=== PATIENT | female | born 1980 | race Caucasian/White ===

== ENCOUNTER 2018-05-10 21:39 | Emergency (ER) | payer OTHER, SELFPAY ==
[2018-05-10 21:46] VITALS: BP 103/66; PULSE 58; RESP 16; TEMP 36.7; O2SAT 100
--- NOTE | 2018-05-10 22:13 | ED.GENADUL ---
Disposition Clinical Impression: Burn Disposition: HOME Condition: Good Instructions: Superficial Burn (ED) Additional Instructions: Please apply the silver Silvadene twice daily to the affected hand. Please take 1000 mg of Tylenol every 6 hours and 800 mg of Motrin with food every 6 hours for control of the pain. If you notice any redness, fever, chills, worsening pain please return immediately for reevaluation. If you notice any worsening of your symptoms, or any new symptoms such as vomiting, diarrhea, fever, chills, shortness of breath, chest pain, numbness, weakness, or fainting , please return immediately to the emergency department for reevaluation. Please follow up with your primary care provider as soon as possible for reassessment and reevaluation. As always, it was a pleasure participating in your medical care today. Referrals: Catarina Min NP [Primary Care Provider] - Medical Decision Making - Medical Decision Making This is a 37-year-old female who is right-hand dominant who demonstrates a small amount of second-degree burn secondary to hot oil splashing on her right hand. Total body surface area is less than 1%. No evidence of circumferential macdonald, no significant swelling of the hand. She is kept in cool water ever since the initial event. Currently her pain is controlled when it is under cold water. We have recommended maximum dose Tylenol and Motrin for home use, as well as silver Silvadene. We have given her a tube here and instructed her on how to use it at home. We have given her bandaging material, instructed her on the importance of regular bandage changes. We discussed the importance of close follow-up with PCP as well as red flags for which to return including signs and symptoms concerning for infection the patient understands. I have extensively reviewed the treatment plan and discharge instructions with the patient. I have addressed all patient concerns at this time. The patient was made aware of what symptoms to monitor for that would warrant a return to the emergency department. Discussed the plan with the patient, they demonstrate verbal understanding and agreement with our assessment and plan at this time. History of Present Illness - General Chief complaint: Burn Stated complaint: BURNED HAND Time Seen by Provider: 05/10/18 22:03 - History of Present Illness Initial comments: This is a 37-year-old female with no significant past medical history who presents for evaluation of burn to her right hand. She is right-hand dominant. Patient states that earlier this evening she was cooking chicken which was being sagastume grease, and a bit of hot grease splashed up on her right hand. It splashed onto the palmar surface of her hand, as well as small amounts on her fingers. She immediately placed it in cold water, and applied some ice. She then came in for evaluation. She describes the pain is mild. No radiation. No difficulty moving the hand, with flexion or extension. Good 2 point discrimination per patient is still present. Her tetanus is up-to-date, and was last updated 6 years ago. She denies any other medical problems, any home medication use, or any other complaints at this time. She denies any pertinent surgical history, or any pertinent family history. She denies any IV or illicit drug use. - Related Data Trazodone HCl 50 mg PO BID #60 tab-cap 03/16/18 Silver Sulfadiazene 1% [Silvadene 1% Cream] 1 gm TP BID tube 05/10/18 Allergies Allergy/AdvReac Type Severity Reaction Status Date / Time No Known Allergies Allergy Unverified 05/10/18 21:48 Review of Systems Other: 10 point review of systems was performed, pertinent positives and negatives are noted in the history of present illness. General Exam - Other Other exam information: 1.Const: Well-nourished, Well-developed, appearing stated age 2.Eyes: PERRL, no conjunctival injection, and symmetrical lids. 3.ENT: Atraumatic external nose and ears. Moist MM. Neck: Symmetric, trachea midline, No thyromegaly. 4.CVS: +S1/S2, No murmurs or gallops. Peripheral pulses 2+ and equal in all extremities. Brisk capillary refill in all extremities. 5.RESP: Unlabored respiratory effort. Clear to auscultation bilaterally. No wheezes rales or rhonchi 6.GI: Soft, Nontender/Nondistended, No hepatosplenomegaly. No guarding or rebound. 7.MSK: Normocephalic/Atraumatic, Extremities w/o deformity or ttp No cyanosis or clubbing, Normal movement of all extremities 8.Skin: The patient's right hand demonstrates 3 small lesions over the palmar aspect with mild blisters in these areas. Total diameter of the enteric complexes 2.5 cm. No significant redness, no evidence of other skin breakdown on the palmar aspect. There are also 2-3 small splash burleson roughly 7 mm in diameter on the middle finger, ring finger and index finger. No other evidence of skin breakdown. Total body surface percentage of second-degree macdonald is less than 1%. Good sensation, normal movement of flexion extension of the fingers, good 2 point discrimination. Brisk capillary refill. 9.Neuro: predictive maintenance specialist II-XII grossly intact. Sensation grossly intact, no focal neurologic deficits. 10.Psych: (AAO) x3. Appropriate mood and affect Course Vital Signs - 24 hr 05/10/18 21:46 Temperature 36.7 C Pulse 58 L Respiratory 16 Rate Blood Pressure 103/66 Pulse Oximetry 100
== END 2018-05-10 22:25 | disposition home or self-care (01) ==
PROVIDERS: Emergency Provider Student in an Organized Health Care Education/Training Program; PCP Nurse Practitioner Family
DX: T23.251A Burn of second degree of right palm, initial encounter (principal); X10.2XXA Contact with fats and cooking oils, initial encounter
CPT/HCPCS: 16020

== ENCOUNTER 2018-08-01 07:55 | Outpatient (CLI) | payer OTHER, SELFPAY ==
[2018-08-01 09:25] LABS: Anion Gap 7.6 mmol/L (3-11); BUN 13 mg/dL (7-18); CO2 27.4 mmol/L (21.0-32.0); CREATININE 0.99 mg/dL (0.55-1.02); Calcium 8.8 mg/dL (8.5-10.1); Chloride 104 mmol/L (98-107); Cholesterol 166 mg/dL (50-200); Glucose 92 mg/dL (70-100); HDL Cholesterol 74 mg/dL (40-60); LDL CHOLESTEROL 87 mg/dL (<100); Potassium 4.1 mmol/L (3.5-5.1); Sodium 139 mmol/L (136-145); Triglyceride 32 mg/dL (30-150)
== END 2018-08-01 08:15 ==
PROVIDERS: PCP Nurse Practitioner Family; Visit Provider Nurse Practitioner Family
DX: Z00.00 Encounter for general adult medical examination without abnormal findings (principal); Z13.220 Encounter for screening for lipoid disorders; Z13.228 Encounter for screening for other metabolic disorders
CPT/HCPCS: 36415; 80048; 80061; 83721

== ENCOUNTER 2018-10-07 00:11 | Outpatient (CLI) | payer OTHER, SELFPAY ==
--- NOTE | 2018-10-07 08:49 | DI.MRI_ITS ---
SYMPTOMS/DIAGNOSIS: RT WRIST PAIN, MUSCLE WEAKNESS GENERALIZED, M25.531, M62.81 MRI OF THE RIGHT WRIST: Comparison is made with [id number]. T 1 and fat suppressed T 2 axial, coronal and sagittal sequences were performed. The exam is mildly limited by patient motion. The marrow signal is normal. No joint effusion or ganglion cyst is seen. The carpal tunnel is unremarkable. No tendon abnormalities are seen. IMPRESSION: Negative MRI of the right wrist.
== END 2018-10-07 00:31 ==
PROVIDERS: PCP Nurse Practitioner Family; Visit Provider Nurse Practitioner Family
DX: M25.531 Pain in right wrist (principal); M62.81 Muscle weakness (generalized)
CPT/HCPCS: 73221

== ENCOUNTER 2019-01-28 11:04 | Emergency (ER) | payer OTHER, SELFPAY ==
[2019-01-28 11:15] VITALS: BP 118/69; PULSE 62; RESP 16; TEMP 36.7; O2SAT 100
--- NOTE | 2019-01-28 11:17 | W.ED.GENAD ---
Discharge Plan Disposition Patient Disposition: HOME Condition: Stable Discharge Details Chief Complaint: Laceration Clinical Impression: Blunt trauma of nose Primary Care Provider: Catarina Min ED Provider: Darien Paez Home Meds and New Rx's Prescriptions: No Action fluocinonide 0.05 % cream 1 applic TP BID PRN (Reason: rash) Qty: 60 RF: 1 rizatriptan 10 mg tablet 10 mg PO ONCE MDD 20mg PRN (Reason: migraine headache) Qty: 10 RF: 1 trazodone 50 mg tablet 50 mg PO BID Qty: 180 RF: 4 benzonatate 100 mg capsule 100 - 200 mg PO TID PRN (Reason: cough) Qty: 90 RF: 0 Discharge Instructions Additional Instructions: If you have repeated vomit, severe worsening head pain or new pain such as difficulty breathing or chest pain/pressure return to the emergency department if the nose bleeds use the nasal clamp or your finger and hold for 15 minutes. If this doesn't stop the bleeding return to the emergency department You can take 1000mg tylenol and 600mg ibuprofen every 6 hours for pain as needed try to avoid screens especially if you are having headaches. if symptoms persist this week follow up with your primary care provider Medical Decision Making 38 yo female comes in after she was cutting a tree and it swung up and hit her nose, denies loc or vomit since then, has a headache. She had bleeding from the nose so came here for an evaluation. She has a superficial 0.5cm laceration on the bridge of the nose that is too superficial to close. She does have some swelling of the nasal bridge, is midline so doubt significant nasal fx and do not feel imaging of the nsoe indicate.d Has no septal hematoma on exam, does have some dried blood in the right nare, no epistaxis. no neck pain, meets criteria per candian head ct rules to not image her head. Will d/c and return precautions given Medical Records Medical records reviewed: Yes I reviewed the patient's medical records. HPI General Mode of arrival: ambulatory. Date/Time Provider Initiated Documentation: 01/28/19 11:12. Limitations to Documentation: no limitations. Information obtained by: patient. History of Present Illness 38 year old F presents to the emergency department with the chief complaint of nasal bleeding, described as moderate, and is localized to the face. Patient started experiencing this hour(s) (1) and it has been now resolved. No relieving factors improve symptom(s), No exacerbating factors reported . Patient did receive the following treatments prior to arrival, none Related Data Home Medications Medication Instructions Recorded Confirmed fluocinonide 0.05 % topical cream 1 applic TP BID PRN #60 gm 06/29/18 01/28/19 rizatriptan 10 mg tablet 10 mg PO ONCE PRN #10 tab MDD 20mg 07/28/18 01/28/19 trazodone 50 mg tablet 50 mg PO BID #180 tab 08/17/18 01/28/19 benzonatate 100 mg capsule 100 - 200 mg PO TID PRN #90 cap 10/10/18 01/28/19 Previous Rx's Medication Instructions Recorded fluocinonide 0.05 % topical cream 1 applic TP BID PRN #60 gm 06/29/18 rizatriptan 10 mg tablet 10 mg PO ONCE PRN #10 tab MDD 20mg 07/28/18 trazodone 50 mg tablet 50 mg PO BID #180 tab 08/17/18 benzonatate 100 mg capsule 100 - 200 mg PO TID PRN #90 cap 10/10/18 Allergies Allergy/AdvReac Type Severity Reaction Status Date / Time No Known Allergies Allergy Unverified 01/28/19 11:18 Review of Systems Review of Systems All systems reviewed & are unremarkable except as noted in HPI and below Cardiovascular Denies chest pain and Denies dyspnea Respiratory Denies dyspnea Gastrointestinal Denies vomiting [facility] Medical History Depression with anxiety Surgical History Hip surgery Family History Mother Depression Hyperlipidemia Mental disorder MS (multiple sclerosis) Father Depression Mental disorder Neoplasm Brother No problems noted. Grandfather Heart disease Hyperlipidemia Grandfather Alcohol abuse Grandmother Heart disease Stroke Grandmother Hyperlipidemia Son No problems noted. Son No problems noted. Social History Smoking/Tobacco Use Status: Never Alcohol Intake: current Alcohol Intake frequency: a few times a week Substance use type: does not use Household members: spouse and other Details: 4 current occupation: TEACHER Pets and animals: Yes Pets and animals: cat(s), dog(s) and farm animals Duration: 45-60 minutes/day Frequency: 5-6 times per week Dayana/Voodoo: Yazdanism Special dayana needs: No Exam Const General: no acute distress Orientation: alert HENMT Head: normal to inspection Ears: external ears normal Mouth: moist mucous membranes Eyes General: appearance normal, both eyes and all related structures Neck Neck: normal visual inspection Resp Effort & Inspection: normal respiratory effort and able to speak in complete sentences Cardio Rate: regular rate Skin General skin exam: no rashes or lesions noted Neuro General: alert and oriented x3 Extrem General: normal to inspection Psych Mental Status: mental status grossly normal
--- NOTE | 2019-01-28 11:27 | ED.GENADUL_ITS ---
Discharge Plan Disposition Patient Disposition: HOME Condition: Stable Discharge Details Chief Complaint: Laceration Clinical Impression: Blunt trauma of nose Primary Care Provider: Catarina Min ED Provider: Darien Paez Home Meds and New Rx's Prescriptions: No Action fluocinonide 0.05 % cream 1 applic TP BID PRN (Reason: rash) Qty: 60 RF: 1 rizatriptan 10 mg tablet 10 mg PO ONCE MDD 20mg PRN (Reason: migraine headache) Qty: 10 RF: 1 trazodone 50 mg tablet 50 mg PO BID Qty: 180 RF: 4 benzonatate 100 mg capsule 100 - 200 mg PO TID PRN (Reason: cough) Qty: 90 RF: 0 Discharge Instructions Additional Instructions: If you have repeated vomit, severe worsening head pain or new pain such as difficulty breathing or chest pain/pressure return to the emergency department if the nose bleeds use the nasal clamp or your finger and hold for 15 minutes. If this doesn't stop the bleeding return to the emergency department You can take 1000mg tylenol and 600mg ibuprofen every 6 hours for pain as needed try to avoid screens especially if you are having headaches. if symptoms persist this week follow up with your primary care provider Medical Decision Making 38 yo female comes in after she was cutting a tree and it swung up and hit her nose, denies loc or vomit since then, has a headache. She had bleeding from the nose so came here for an evaluation. She has a superficial 0.5cm laceration on the bridge of the nose that is too superficial to close. She does have some swelling of the nasal bridge, is midline so doubt significant nasal fx and do not feel imaging of the nsoe indicate.d Has no septal hematoma on exam, does have some dried blood in the right nare, no epistaxis. no neck pain, meets criteria per candian head ct rules to not image her head. Will d/c and return precautions given Medical Records Medical records reviewed: Yes I reviewed the patient's medical records. HPI General Mode of arrival: ambulatory . Date/Time Provider Initiated Documentation: 01/28/19 11:12 . Limitations to Documentation: no limitations . Information obtained by: patient . History of Present Illness 38 year old F p resents to the emergency department with the chief complaint of nasal bleeding, described as moderate, and is localized to the face. Patient started experiencing this hour(s) (1) and it has been now resolved. No relieving factors improve symptom(s), No exacerbating factors reported . Patient did receive the following treatments prior to arrival, none Related Data Home Medications Medication Instructions Recorded Confirmed fluocinonide 0.05 % topical cream 1 applic TP BID PRN #60 gm 06/29/18 01/28/19 rizatriptan 10 mg tablet 10 mg PO ONCE PRN #10 tab MDD 20mg 07/28/18 01/28/19 trazodone 50 mg tablet 50 mg PO BID #180 tab 08/17/18 01/28/19 benzonatate 100 mg capsule 100 - 200 mg PO TID PRN #90 cap 10/10/18 01/28/19 Previous Rx's Medication Instructions Recorded fluocinonide 0.05 % topical cream 1 applic TP BID PRN #60 gm 06/29/18 rizatriptan 10 mg tablet 10 mg PO ONCE PRN #10 tab MDD 20mg 07/28/18 trazodone 50 mg tablet 50 mg PO BID #180 tab 08/17/18 benzonatate 100 mg capsule 100 - 200 mg PO TID PRN #90 cap 10/10/18 Allergies Allergy/AdvReac Type Severity Reaction Status Date / Time No Known Allergies Allergy Unverified 01/28/19 11:18 Review of Systems Review of Systems All systems reviewed & are unremarkable except as noted in HPI and below Cardiovascular Denies chest pain and Denies dyspnea Respiratory Denies dyspnea Gastrointestinal Denies vomiting [facility] Medical History Depression with anxiety Surgical History Hip surgery Family History Mother Depression Hyperlipidemia Mental disorder MS (multiple sclerosis) Father Depression Mental disorder Neoplasm Brother No problems noted. Grandfather Heart disease Hyperlipidemia Grandfather Alcohol abuse Grandmother Heart disease Stroke Grandmother Hyperlipidemia Son No problems noted. Son No problems noted. Social History Smoking/Tobacco Use Status: Never Alcohol Intake: current Alcohol Intake frequency: a few times a week Substance use type: does not use Household members: spouse and other Details: 4 current occupation: TEACHER Pets and animals: Yes Pets and animals: cat(s), dog(s) and farm animals Duration: 45-60 minutes/day Frequency: 5-6 times per week Dayana/Roman Catholic: Jain Special dayana needs: No Exam Const General: no acute distress Orientation: alert HENMT Head: normal to inspection Ears: external ears normal Mouth: moist mucous membranes Eyes General: appearance normal, both eyes and all related structures Neck Neck: normal visual inspection Resp Effort & Inspection: normal respiratory effort and able to speak in complete sentences Cardio Rate: regular rate Skin General skin exam: no rashes or lesions noted Neuro General: alert and oriented x3 Extrem General: normal to inspection Psych Mental Status: mental status grossly normal
[2019-01-28] MEDS: Ibuprofen 600 MG TAB PO (11:30)
== END 2019-01-28 11:50 | disposition home or self-care (01) ==
LOC: ER 11:39
PROVIDERS: Emergency Provider Emergency Medicine; PCP Nurse Practitioner Family
DX: S01.21XA Laceration without foreign body of nose, initial encounter (principal); W22.8XXA Striking against or struck by other objects, initial encounter
CPT/HCPCS: 99282

== ENCOUNTER 2019-04-05 15:56 | Outpatient (REF) | payer OTHER, SELFPAY ==
--- NOTE | 2019-04-05 14:00 | PAPFT_PTH ---
PATIENT: Julieta Sen LOC: [facility] U#:[id number] AGE/SX: 38/F ROOM: RE04/05/[address]: SHANIQUA Huston : 1980 BED: DIS: 04/05/2019 SPEC #: [id number] RECD: 04/06/19 13:03 STATUS: VERA REJohn #: [id number] ROMAN: 04/05/19 14:[address]: Catarina Min DEPT: [facility] Cytology RECD BY: Bridgette Gardner Tissues: 1 - CX/ENDOCX FOR PAP SMEARS Procedures: PAP THIN PREP/UVM Screening HPV DNA PROBE Comments: [id number]
== END 2019-04-05 16:16 ==
LOC: LBN 15:56
PROVIDERS: PCP Nurse Practitioner Family; Visit Provider Nurse Practitioner Family
DX: Z12.4 Encounter for screening for malignant neoplasm of cervix (principal); Z11.51 Encounter for screening for human papillomavirus (HPV)
CPT/HCPCS: 88142; 87624

== ENCOUNTER 2019-05-17 16:15 | Outpatient (REF) | payer OTHER, SELFPAY ==
--- NOTE | 2019-05-17 14:30 | ENDO_PTH ---
PATIENT: Julieta Sen LOC: [facility] U#:[id number] AGE/SX: 38/F ROOM: RE05/17/[address]: Lydia Gutierrez : 1980 BED: DIS: 05/17/2019 SPEC #: [id number] RECD: 05/17/19 17:00 STATUS: VERA ANGLIN #: [id number] ROMAN: 05/17/19 14:[address]: Lydia Gutierrez DEPT: Surgical Specimen RECD BY: Bridgette Gardner ENTERED: 05/17/19 17:03 SP TYPE: Endo OTHR DR: SHANIQUA Huston Tissues: 1 - ENDOCERVICAL BX/CURRETTE Procedures: GROSS AND MICRO LEVEL 4 Comments: [id number]
== END 2019-05-17 16:35 ==
LOC: LBN 16:15
PROVIDERS: PCP Nurse Practitioner Family; Visit Provider Obstetrics & Gynecology Gynecology
DX: N87.0 Mild cervical dysplasia (principal); R87.612 Low grade squamous intraepithelial lesion on cytologic smear of cervix (LGSIL); R87.810 Cervical high risk human papillomavirus (HPV) DNA test positive
CPT/HCPCS: 88305

== ENCOUNTER 2019-09-15 02:34 | Outpatient (CLI) | payer OTHER, SELFPAY ==
--- NOTE | 2019-09-15 07:29 | DI.MAMMO_ITS ---
EXAM: MG MAMMO SCREENING AND LT AXILLARY ULTRASOUND CLINICAL HISTORY: Screening,z12.39, F/U MAMMMO TECHNIQUE: Mammograms were interpreted according to the usual protocol including computer analysis w iRule CAD system, tomosynthesis and C-view imaging. Ultrasound was performed according to the usual protocol. FINDINGS: Bilateral baseline mammogram and left breast/axilla ultrasound are interpreted in conjunction. Patie nt reports palpable abnormality in the left axilla. Breasts are heterogeneously dense. No dominant mass or clumped microcalcification is identified in either breast. The ultrasound examination shows 5 by 1.4 millimeter in diameter nodule corresponding to the patient' s palpable abnormality with typical lymph node architecture in the axilla. IMPRESSION: No specific evidence of malignancy at this time. Routine screening examinations are suggested at year ly intervals in this age group according to the ACR guidelines. Category 1. Breast density, category C. BI-RADS Cat 1 - Negative. Breast Density - Category C - Heterogeneously dense.
--- NOTE | 2019-09-15 09:39 | DI.US_ITS ---
EXAM: MG MAMMO SCREENING AND LT AXILLARY ULTRASOUND CLINICAL HISTORY: Screening,z12.39, F/U MAMMMO TECHNIQUE: Mammograms were interpreted according to the usual protocol including computer analysis w [employer] CAD system, tomosynthesis and C-view imaging. Ultrasound was performed according to the usual protocol. FINDINGS: Bilateral baseline mammogram and left breast/axilla ultrasound are interpreted in conjunction. Patie nt reports palpable abnormality in the left axilla. Breasts are heterogeneously dense. No dominant mass or clumped microcalcification is identified in either breast. The ultrasound examination shows 5 by 1.4 millimeter in diameter nodule corresponding to the patient' s palpable abnormality with typical lymph node architecture in the axilla. IMPRESSION: No specific evidence of malignancy at this time. Routine screening examinations are suggested at year ly intervals in this age group according to the ACR guidelines. Category 1. Breast density, category C. BI-RADS Cat 1 - Negative. Breast Density - Category C - Heterogeneously dense.
== END 2019-09-15 02:54 ==
PROVIDERS: PCP Nurse Practitioner Family; Visit Provider Nurse Practitioner Family
DX: Z12.31 Encounter for screening mammogram for malignant neoplasm of breast (principal); R59.0 Localized enlarged lymph nodes
CPT/HCPCS: 76642; 77063; 77067

== ENCOUNTER 2020-02-21 15:53 | Outpatient (CLI) | payer OTHER, SELFPAY ==
--- NOTE | 2020-02-21 14:30 | DI.RAD_ITS ---
EXAM: XR SHOULDER RT COMPLETE 2+V CLINICAL HISTORY: right shoulder pain. TECHNIQUE: 2D digital imaging was performed. COMPARISON: No exams were available for comparison FINDINGS: BONES: No acute fracture is present. No bony destructive lesion is seen. The there is minimal spurri ng at the inferior glenoid. JOINTS: No dislocation present. The glenohumeral joint space is well maintained. There is no signif icant AC joint spurring. SOFT TISSUE: Normal. No joint space or soft tissue calcifications are seen. IMPRESSION: Minimal degenerative changes.. DATA REPOSITORY: RADIATION DOSE DELIVERED:
== END 2020-02-21 16:13 ==
PROVIDERS: PCP Nurse Practitioner Family; Referring Provider Nurse Practitioner Family; Visit Provider Student in an Organized Health Care Education/Training Program
DX: M25.511 Pain in right shoulder (principal); M19.011 Primary osteoarthritis, right shoulder; G89.29 Other chronic pain
CPT/HCPCS: 73030

== ENCOUNTER 2020-04-08 12:01 | Outpatient (REF) | payer OTHER, SELFPAY ==
--- NOTE | 2020-04-08 08:45 | PAPFT_PTH ---
PATIENT: Julieta Sen LOC: [facility] U#:[id number] AGE/SX: 39/F ROOM: RE04/08/[address]: SHANIQUA Huston : 1980 BED: DIS: 04/08/2020 SPEC #: [id number] RECD: 04/08/20 13:04 STATUS: VERA REJohn #: [id number] ROMAN: 04/08/20 08:[address]: Catarina Min DEPT: [facility] Cytology RECD BY: Bridgette Gardner Tissues: 1 - CX/ENDOCX FOR PAP SMEARS Procedures: PAP THIN PREP/UVM Screening HPV DNA PROBE Comments: [id number]
== END 2020-04-08 12:21 ==
LOC: LBN 12:01
PROVIDERS: PCP Nurse Practitioner Family; Visit Provider Nurse Practitioner Family
DX: Z12.4 Encounter for screening for malignant neoplasm of cervix (principal); Z11.51 Encounter for screening for human papillomavirus (HPV); Z87.42 Personal history of other diseases of the female genital tract
CPT/HCPCS: 88142; 87624

== ENCOUNTER 2021-04-30 09:14 | Outpatient (CLI) | payer OTHER, SELFPAY ==
--- NOTE | 2021-04-30 09:00 | DI.RAD_ITS ---
Exam(s) XR ELBOW RT COMPLETE EXAM: XR ELBOW RT COMPLETE CLINICAL HISTORY: right lateral epicondylitis f/u. TECHNIQUE: 2D digital imaging was performed. COMPARISON: No exams were available for comparison FINDINGS: No evidence of acute fracture nor joint effusion. There is no swelling of the olecranon bursa. Radi al head appears unremarkable as does the capitellum. Epicondyles appear unremarkable. However, on the frontal view there is a 1 millimeter calcific density seen at the mid aspect of the j oint, chest off the medial aspect of the capitellum. This is probably a loose intra-articular body. There is no evidence of osteochondral defect at the capitellum and trochlear levels. IMPRESSION: DATA REPOSITORY: RADIATION DOSE DELIVERED:
== END 2021-04-30 09:15 | disposition home or self-care (01) ==
LOC: DIORS 09:14
PROVIDERS: PCP Nurse Practitioner Family; Visit Provider Student in an Organized Health Care Education/Training Program
DX: M77.11 Lateral epicondylitis, right elbow (principal)
CPT/HCPCS: 73080

== ENCOUNTER 2021-05-16 14:48 | Outpatient (REF) | payer OTHER, SELFPAY ==
--- NOTE | 2021-05-16 13:00 | PAPFT_PTH ---
PATIENT: Julieta Sen LOC: [facility] U#:[id number] AGE/SX: 40/F ROOM: RE05/16/[address]: SHANIQUA Huston : 1980 BED: DIS: 05/16/2021 SPEC #: [id number] RECD: 05/16/21 18:04 STATUS: VERA REQ #: [id number] ROMAN: 05/16/21 13:[address]: Catarina Min DEPT: [facility] Cytology RECD BY: Bridgette Gardner Tissues: 1 - CX/ENDOCX FOR PAP SMEARS Procedures: PAP THIN PREP/UVM Screening HPV DNA PROBE Comments: [id number]
== END 2021-05-16 14:49 | disposition home or self-care (01) ==
LOC: LBN 14:48
PROVIDERS: PCP Nurse Practitioner Family; Visit Provider Nurse Practitioner Family
DX: Z12.4 Encounter for screening for malignant neoplasm of cervix (principal); Z87.42 Personal history of other diseases of the female genital tract; Z11.51 Encounter for screening for human papillomavirus (HPV)
CPT/HCPCS: 88142; 87624

== ENCOUNTER 2021-06-13 01:14 | Outpatient (CLI) | payer OTHER, SELFPAY ==
[2021-06-13 12:48] LABS: Anion Gap 8.6 mmol/L (3-11); BUN 11 mg/dL (7-18); CO2 26.4 mmol/L (21.0-32.0); CREATININE 0.9 mg/dL (0.55-1.02); Calculated LDL 94 mg/dL (<100); Chloride 107 mmol/L (98-107); Cholesterol 188 mg/dL (<200); Glucose 85 mg/dL (74-106); HDL Cholesterol 86 mg/dL (40-60); Potassium 4.1 mmol/L (3.5-5.1); Sodium 142 mmol/L (136-145); TSH (W/Ref FT4) 0.69 uIU/mL (0.36-3.74); Triglyceride 41 mg/dL (<150)
== END 2021-06-13 01:15 | disposition home or self-care (01) ==
LOC: LOS 01:14
PROVIDERS: PCP Nurse Practitioner Family; Visit Provider Nurse Practitioner Family
DX: Z00.00 Encounter for general adult medical examination without abnormal findings (principal)
CPT/HCPCS: 36415; 80048; 80061; 84443

== ENCOUNTER → 2021-11-06 02:19 | Outpatient (CLI) | payer OTHER, SELFPAY ==
--- NOTE | 2021-11-06 07:15 | DI.MRI_ITS ---
Exam(s) MR IAC BRAIN WO/W EXAM: MR IAC BRAIN WO/W CLINICAL HISTORY: right sn hearing loss, h90.41,h93.11 TECHNIQUE: Multiplanar multisequence MRI of the brain was performed. Both noninfused and contrast i nfused sequences were performed. IV Contrast injected was 13 cc Dotarem. Also performed high-resolution sub- millimeter slice thickness sequence through the IAC's. COMPARISON: No exams were available for comparison FINDINGS: INTERNAL AUDITORY CANALS: There is no evidence of mass in the cerebellopontine angles. No evidence o f intra canalicular acoustic neuroma-schwannoma. Seventh and 8th cranial nerves appear unremarkable within the IAC's. Fifth-trigeminal cranial nerves appear unremarkable as they head anteriorly toward s Meckel's caves. Third-oculomotor cranial nerves appear unremarkable within the interpeduncular cis tern. CEREBRAL PARENCHYMA: No evidence of intracranial hemorrhage, mass effect nor shift of midline structu re. No extraaxial fluid collections. Ventricles are not enlarged nor shifted. There is no significant focal signal abnormality in the cerebellar hemispheres nor within the jeff, m idbrain, and thalami. There is no abnormal signal abnormality in the periventricular white matter. There are no ring enhancing lesions in the brain. There is no abnormal meningeal enhancement. No ev idence of demyelinating plaques DWI: No evidence of restricted diffusion to suggest recent acute ischemic event. SWI: No evidence of microhemorrhages. PITUITARY GLAND: No mass nor parasellar abnormality. No obvious abnormality in the cavernous sinuses. FLOW VOIDS: The expected flow void are noted. No evidence of obvious aneurysm nor obvious vascular ma lformation. Left vertebral artery is dominant. PARANASAL SINUSES: There is a retention cyst in the floor of the left maxillary sinus which measures 1.1 cm AP x 1 cm wide by 0.6 cm craniocaudal. No associated fluid level. Other paranasal sinuses ar e clear as are the mastoid air cells. ORBITS: No obvious abnormal findings. IMPRESSION: 1. No significant intracranial findings on this MRI scan of the brain. 2. No abnormal enhancing intracranial findings. 3. No evidence of acoustic neuroma-schwannoma nor other significant findings in the region of the ce rebellopontine angles nor within the internal auditory canals. DATA REPOSITORY:
[2021-11-06] MEDS: Normal Saline Flush 10 ML SYR IVP (13:59)
[2021-11-06] MEDS: Gadoterate meglumine 20 ML VIAL 13 ML IVP (14:00)
== END ==
PROVIDERS: PCP Nurse Practitioner Family; Visit Provider Otolaryngology
DX: H90.41 Sensorineural hearing loss, unilateral, right ear, with unrestricted hearing on the contralateral side (principal); H93.11 Tinnitus, right ear
CPT/HCPCS: 70553

== ENCOUNTER → 2023-05-27 01:14 | Outpatient (CLI) | payer OTHER, SELFPAY ==
--- NOTE | 2023-05-27 08:30 | DI.MAMMO_ITS ---
Exam(s) MAMMO SCREENING EXAM: MAMMO SCREENING CLINICAL HISTORY: screening, Z12.39 TECHNIQUE: Bilateral full field digital CC and MLO mammographic images were obtained with 3D tomosyn thesis and utilizing computer aided detection (CAD). COMPARISON: Available for comparison. FINDINGS: Masses/Architectural Distortion: None seen. Microcalcifications: No suspicious pleomorphic-type are seen. Skin Thickening/Nipple Retraction: None. IMPRESSION: 1. No significant interval change with no specific features of malignancy noted. 2. Unless there is more urgent need, screening mammography is recommended, as per [employer] guidelines. BI-RADS Category 1 - Negative Breast Density - Category C - Heterogeneously dense Breast density category C or D implies that the patient has dense breast tissue. Dense breast tissue is very common and is not abnormal but dense breast tissue can make it harder to find cancer on a ma mmogram. Also, dense breast tissue may increase their breast cancer risk. This information about the result of the mammogram report was provided to the patient to raise their awareness. Use this report when you speak with the patient about their risks for breast cancer, which includes their family hist ory. At that time, you may recommend for more screening tests (Ultrasound or MRI) as they might be us eful based on their risk. A negative radiographic report should not delay biopsy if a dominant or clinically suspicious mass is present. Up to ten percent of cancers are not identified on mammography. A negative report may reinforce clinical impression. Adenosis and dense breasts may obscure an underlying neoplasm. False positive reports average 6 to 10%. Patient will receive a letter notifying them of these results.
== END ==
PROVIDERS: PCP Nurse Practitioner Family; Visit Provider Nurse Practitioner Family
DX: Z12.31 Encounter for screening mammogram for malignant neoplasm of breast (principal)
CPT/HCPCS: 77063; 77067

== ENCOUNTER 2023-09-14 12:26 | Day surgery (SDC) | payer OTHER, SELFPAY ==
--- NOTE | 2023-09-13 12:52 | W.COLOREPORT ---
Colonoscopy Report Pre-op diagnosis general: colorectal cancer screening Surgeon: Marlen Vinson Anesthesia Type: General:No Airway Complications: None Disposition: same day Prep: Miralax/Dulcolax Procedure Description: After informed consent was obtained the patient was taken to the procedure room and placed in a left decubitous position. Monitors were applied and a time out was done. The patients name, date of , procedure, allergies to medications and metal in their body was reviewed. The patient was then sedated. Once sedated and comfortable a rectal exam was done. External exam was normal. Internal exam revealed a normal sphincter tone and no palpable masses. The prostate []. The scope was then introduced and retrofelexed. [] internal hemorrhoids were identified. The scope was then advanced to the cecum [] difficulty. The TI and appendiceal orifice were identified. The prep was []. The scope was then slowly retracted over [] minutes back into the rectum. Polyps were removed at []. The scope was removed and the patient was woken up and taken back to Same day surgery in stable condition. The patient tolerated the procedure well and there were no immediate complications. Follow up: The patient should follow up in [] years unless they develop changes in bowel habits or other new gastrointestinal complaints.
--- NOTE | 2023-09-13 12:53 | PDOC.DSDIS_ITS ---
Discharge Plan Disposition Patient Disposition: Home Discharge Details Reason For Visit: Colonoscopy Attending Provider: Marlen Vinson Primary Care Provider: Catarina Min Home Meds and New Rx's Prescriptions: No Action rizatriptan 10 mg tablet 10 mg PO ONCE MDD 20mg PRN (Reason: migraine headache) Qty: 20 1RF Rx Instructions: 1 tab once at onset of headache; if no relief, may repeat x 1 in 2hrs ashwagandha root extract 300 mg tablet 400 mg PO DAILY Discharge Instructions Additional Instructions: DSU Colonoscopy Post- Op Instructions Instructions for Everyone who is given Anesthesia: For your safety, please do the following for the next twenty-four (24) hours: *Do Not operate a motor vehicle (car, truck, motorcycle, etc.) *Do Not drink alcoholic beverages or use any recreational drugs for the first 24 hours or while taking pain medications. The medications in your body may have a reaction that can be dangerous. *Do Not make any important decisions or sign any important papers. Findings: Follow up: 1. No lifting over 20 pounds or strenuous activity for the first 24 hours after your procedure. After 24 hours there are no restrictions on your activity but you may feel fatigued for a few days. 2. After you arrive home you may have a light meal and return to your normal diet as you can tolerate it without feeling sick to your stomach. 3. You may have a bloated, gaseous feeling in your belly (abdomen) after a colonoscopy. Passing gas and belching will help. Walking or lying down on your left side with your knees flexed may relieve the discomfort. Call the office at [phone] (Office) or [phone] (Hospital) right away if you notice any of the following: a.Vomiting of blood or ?coffee ground stools?. b.Rectal bleeding 1Tbsp, blood clots or continuous bleeding. c.Severe belly (abdominal) pain. d.A hard distended belly (abdomen) and an inability to pass gas. 4. Please don?t expect to have a normal BM (bowel movement) for 2-3 days after your procedure. 5. If there are questions regarding the findings of your procedure, please contact your doctor 6. If you are unable to contact your doctor with a problem, contact the hospital at [phone]. 7. Continue all your regular medications unless directed otherwise. I understand the above instructions and have no questions. Signature of Patient or Adult Escort Name of Responsible Adult Escort Signature of Nurse Date/Time Activity:: See above Diet:: See above Discharge Orders Discharge Orders: Discharge Order (Routine); Ordered 09/14/23 Ordered By: Marlen Vinson DS: Diagnosis Discharge Diagnosis (1) Abnormal uterine bleeding: Status: Chronic (2) Migraine headache with aura: Status: Chronic (3) Generalized anxiety disorder: Status: Chronic (4) Prolapse of female pelvic organs: Status: Chronic (5) Screening for malignant neoplasm of colon performed: Status: Acute Asessment and Plan: 1 The patient is seen and examined after their colonoscopy.? The patient has been able to pass gas.? They are not having abdominal pain.? They have been able to tolerate liquids and a snack.? They do not have any nausea or vomiting.? They are not having any chest pain or shortness of breath.??? They are not having any rectal bleeding. Their vital signs have been stable-see nursing notes. We discussed findings during their colonoscopy, and any biopsies that were done/polyps that were removed. The patient will be sent a letter with any biopsy results, and when to repeat the colonoscopy.-see discharge instructions. Patient was given explicit instructions to follow-up regarding colonoscopy-refer to discharge instructions.? We reviewed resumption of medications. Patient verbalized understanding and discharged in stable and satisfactory condition- See nursing notes.
[2023-09-14 13:01] VITALS: BP 103/70; PULSE 54; RESP 18; TEMP 36.4; O2SAT 100
--- NOTE | 2023-09-14 13:38 | SCONE_ITS ---
Date of service: 09/14/23 Time of Service: 13:38 Assessment and Plan Assessment and plan (1) Screening for malignant neoplasm of colon performed: Status: Acute Assessment and plan: 43-year-old healthy woman with no symptoms and no known increased risk factors due for colonoscopy screening. Overall plan: Colonoscopy History of Present Illness Narrative: 43-year-old woman has never had a colonoscopy before. She has no symptoms of concern. She has never had intra-abdominal surgery. Her family history is unknown. [facility] All Active Problems Screening for malignant neoplasm of colon performed (Acute) Abnormal uterine bleeding (Chronic) IUD surveillance (Chronic) Left ovarian cyst (Chronic) Uterine fibroid (Chronic) Migraine headache with aura (Chronic) Generalized anxiety disorder (Chronic) Insomnia (Chronic) Prolapse of female pelvic organs (Chronic) Cystocele and uterine prolapse Sensorineural hearing loss, unilateral, right ear, with unrestricted hearing on the contralateral side (Chronic) Atopic dermatitis (Chronic) Seasonal allergies (Chronic) Medical History Abnormal Papanicolaou smear of cervix with positive human papilloma virus (HPV) test 03/2018--LSIL, +HPV 04/2018 negative colposcopy and ECC at [facility] 03/2019--LSIL, +HPV 04/2019--ECC with LSIL 03/2020--negative Pap and HPV 04/2021--negative Pap and HPV Major depressive disorder Surgical History Status post arthroscopy of hip (04/24/15) [place] [facility] Family History Mother Depression Hyperlipidemia MS (multiple sclerosis) Father Depression Hypertension Brother No problems noted. Son No problems noted. Son No problems noted. Maternal Grandfather Heart disease Maternal Grandmother Heart disease Stroke Paternal Grandfather Alcohol abuse Paternal Grandmother , 91 Hyperlipidemia Social History (Updated 09/06/23 @ 10:08 by RAMOS Harry) Smoking/Tobacco Use Status: Never Second Hand Exposure: No Smoking risk assessment performed?: Yes Alcohol Intake: current Alcohol Intake frequency: a few times a week Alcohol type: wine Drug use: Never Substance use type: does not use Counseling given: No Counseling provided: none Caregiver/Support person: No Household members: spouse and children Housing: house Communication Needs: None Do you need help understanding health information?: Never current occupation: TEACHER Pets and animals: Yes Pets and animals: cat(s), dog(s) and farm animals Sexually active: Yes Do you think of yourself as: straight/heterosexual Current gender identity: female What is your relationship status?: How often do you talk on the phone with friends or family?: three or more times per week How often do you get together with friends or relatives?: three or more times per week How often do you attend anabaptist or anglican services?: 4 or more times per year Do you belong to any clubs or organized social groups?: yes Panel score (0-1 are the most socially isolated patients): 4 What type of physical activity do you participate in: bicycling, weight lifting, other Details: Hiking and running Duration: 45-60 minutes/day Frequency: 5-6 times per week Dayana/Cheondoism: Lutheran Special dayana needs: No Seatbelt use: always Helmet use: Yes Helmet use: always Drive intox or ride w/intox stacker driver: No Do you feel safe at home: Yes Do you feel safe in your relationship?: Yes Female Reproductive History Menstrual control method: other History History 2 Para 2 Hx # Term Pregnancies Multiple births Hx # Pregnancies Ectopic pregnancies AB induced Hx Number of Living Children 2 AB spontaneous Exam Narrative Exam Narrative: General: Nontoxic, comfortable and interactive Neuro: Alert and oriented x 3 Psych: Good mood and affect, good insight and understanding Chest: Nonlabored breathing, no wheezing Heart: Regular Results Last Vital Signs Temp 97.5 F L 09/14/23 13:01 Pulse 54 L 09/14/23 13:01 Resp 18 09/14/23 13:01 BP 103/70 09/14/23 13:01 Pulse Ox 100 09/14/23 13:01
[2023-09-14] MEDS: Lactated Ringers 1,000 ML 80 ML IV (13:40)
--- NOTE | 2023-09-14 13:40 | W.ANESPRE ---
General Info Date of Service Date Performed: 09/14/23 Height: 5 ft 7 in Weight: 68 kg Body Mass Index (BMI): 23.4 Surgical Procedure: Operation Date: 09/14/23 13:35 Proposed Procedure Side Surgeon p Nelsy Garces MD Meds Allergies and Home Medications Allergies Allergy/AdvReac Type Severity Reaction Status Date / Time No Known Allergies Allergy Verified 09/14/23 12:59 Home Medication Medication Instructions Recorded rizatriptan 10 mg tablet 10 mg PO ONCE PRN migraine 05/21/23 headache #20 tabs ashdayrongandha root extract 300 mg 400 mg PO DAILY 09/02/23 tablet Current Visit Medications: Current Medications Generic Name Dose Route Start Last Admin Trade Name Freq PRN Reason Stop Dose Admin Hyoscyamine Sulfate 0.125 mg 09/14/23 08:42 Hyoscyamine 0.125 Mg Sl/Oral/Chew SL 10/14/23 08:41 DIRECTED PRN Ringer's Solution 1,000 mls @ 80 mls/hr 09/14/23 06:00 IV 09/14/23 23:59 INFUSION TIGRE IV Miscellaneous Supplies 1 each 09/14/23 06:00 Iv Access IV 09/14/23 23:59 DIRECTED TIGRE Ondansetron HCl 4 mg 09/14/23 08:42 Ondansetron 4 Mg/2 Ml Vial IVP 10/14/23 08:41 Q4H PRN PRN Nausea / Vomiting Sodium Chloride 0 ml 09/14/23 06:00 Normal Saline Flush 10 Ml Syr IV 09/14/23 23:59 PRN PRN Sodium Chloride 0 ml 09/14/23 06:00 Normal Saline 10 Ml Vial IJ 09/14/23 23:59 DIRECTED PRN Sterile Water 0 ml 09/14/23 06:00 Water,Injection,Sterile 10 Ml Vial IJ 09/14/23 23:59 DIRECTED PRN PFSH Active Problems Active Problems: Problem Status Onset Code Screening for malignant neoplasm of colon performed Z12.11 Abnormal uterine bleeding N93.9 IUD surveillance Z30.431 Left ovarian cyst N83.202 Uterine fibroid D25.9 Migraine headache with aura G43.109 Generalized anxiety disorder F41.1 Insomnia G47.00 Prolapse of female pelvic organs N81.9 Sensorineural hearing loss, unilateral, right ear, with unrestricted hearing on the contralateral side H90.41 Atopic dermatitis L20.9 Seasonal allergies J30.2 Medical History Medical History Abnormal Papanicolaou smear of cervix with positive human papilloma virus (HPV) test 03/2018--LSIL, +HPV 04/2018 negative colposcopy and ECC at [facility] 03/2019--LSIL, +HPV 04/2019--ECC with LSIL 03/2020--negative Pap and HPV 04/2021--negative Pap and HPV Major depressive disorder Surgical History Surgical History Status post arthroscopy of hip (04/24/15) Right hip for labral tear at [facility] Tobacco Smoking/Tobacco Use Status: Never Passive smoking exposure: No Second hand exposure: No Alcohol Alcohol Intake: current Alcohol intake frequency: a few times a week Alcohol type: wine Substance Use Substance use: Never Substance use type: does not use Counseling provided: none Prental History History 2 Para 2 Hx # Term Pregnancies Multiple births Hx # Pregnancies Ectopic pregnancies AB induced Hx Number of Living Children 2 AB spontaneous Vital Signs and Lab Results Vital Signs Most Recent Vital Signs in EMR: Most Recent Vital Signs Temp Pulse Resp BP Pulse Ox 36.4 C L 54 L 18 103/70 100 09/14/23 13:01 09/14/23 13:01 09/14/23 13:01 09/14/23 13:01 09/14/23 13:01 Lab Results Blood Type / Crossmatch: No Data to Display Complete Blood Count: No Data to Display Complete Metabolic Panel: No Data to Display Liver Function Panel: No Data to Display Coagulation Panel: No Data to Display Cardiac Panel: No Data to Display Arterial Blood Gas: No Data to Display Venous Blood Gas: No Data to Display Pancreas Panel: No Data to Display Thyroid Panel: No Data to Display Infectious Disease: No Data to Display Blood Cultures: No Data to Display Toxicology Panel: No Data to Display Panel: No Data to Display Anesthesia Assessment and Plan Anesthesia History Personal History: No History of Anesthesia Complications Family History: No Family History of Anesthesia Complications Exercise Tolerance Exercise Tolerance: Metabolic Equivalents>4 Pertinent Negatives Pertinent Negatives: No Symptoms of GERD, No Major Cardiovascular Symptoms or Complaints and No Major Pulmonary Symptoms or Complaints Cardiac & Pulmonary Exam Cardiac Exam: Normal S1/S2 Heart Sounds Pulmonary Exam: Clear Bilateral Breath Sounds Implantable Cardiac Device Does patient have a Pacemaker or an ICD?: No Airway Exam Known Difficult Airway: No Mallampati Class: 1 Mouth Opening: Normal (> 3cm) Thyromental Distance: Greater than 3 cm Neck Range of Motion: Full ROM Neck Circumference: Normal Teeth Condition: Normal Dentition ASA Classification ASA Score: ASA 2 Emergency Case?: No NPO Status NPO Status: NPO Clears >2 hours, Solids >8 hours Status Status: Negative HCG Anesthesia Plan Resuscitation Status: Full Code Anesthesia Technique: General Anesthesia Airway Planned: Natural Airway Monitors Used: Standard Monitors
[2023-09-14 13:43] VITALS: BMI 23.4
[2023-09-14 14:34] VITALS: BP 107/71; PULSE 61; RESP 6; TEMP 35.9; O2SAT 100
--- NOTE | 2023-09-14 14:39 | COLE_ITS ---
Date of service: 09/14/23 Time of Service: 14:39 Colonoscopy Report Procedure Description: PROCEDURES PERFORMED: 1. Colonoscopy PREOPERATIVE DIAGNOSIS: Screening colonoscopy POSTOPERATIVE DIAGNOSIS: Normal colon, normal rectum SURGEON: Ally Garces MD INDICATION for procedure: The patient is a 43-year-old woman with no symptoms due for her for screening colonoscopy. Family history is unknown. FINDINGS: No polyps. No inflammation. No diverticular disease. No hemor rhoidal disease. SURVEILLANCE-INTERVAL/FOLLOW-UP: 10 years. Specimens: None EBL: Minimal COMPLICATIONS: None QUALITY of prep: Excellent Procedure in detail: The patient gave written consent and was in agreement with the indications, the potential risks as well as the benefits of the procedure. She was taken to the endoscopy suite and laid in the left lateral decubitus position. A timeout was performed and anesthesia was administered which was tolerated well. I started the procedure. Digital rectal and visual examination was performed and grossly within normal limits. A well-lubricated flexible colonoscope was then introduced and passed without any notable difficulty all the way to the cecum identified by the ileocecal valve and the appendiceal orifice. The scope was then slowly withdrawn with the above-noted findings. The patient tolerated the procedure well and was taken to the PACU in hemodynamically stable condition.
--- NOTE | 2023-09-14 14:41 | W.PM.DSUDISC ---
Date of service: 09/14/23 Time of Service: 14:41 Discharge Plan Disposition Patient Disposition: Home Condition: Good Discharge Details Reason For Visit: Colonoscopy Attending Provider: Guero Garces Primary Care Provider: Catarina Min Home Meds and New Rx's Prescriptions: No Action rizatriptan 10 mg tablet 10 mg PO ONCE MDD 20mg PRN (Reason: migraine headache) Qty: 20 1RF Rx Instructions: 1 tab once at onset of headache; if no relief, may repeat x 1 in 2hrs ashwagandha root extract 300 mg tablet 400 mg PO DAILY Discharge Instructions Additional Instructions: FINDINGS: No polyps were found. No inflammation. Your colon and rectum are in good health. Repeat a colonoscopy in 10 years. Stand Alone Forms: Colonoscopy Post Instructions Activity:: Activity as Tolerated Diet:: As Tolerated Discharge Orders Discharge Orders: Discharge Order (Routine); Ordered 09/14/23 Ordered By: Marlen Vinson DS: Diagnosis Discharge Diagnosis (1) Screening for malignant neoplasm of colon performed: Status: Acute
[2023-09-14 15:06] VITALS: BP 110/68; PULSE 68; RESP 16; TEMP 36.5; O2SAT 98
--- NOTE | 2023-09-14 15:25 | W.ANESPOSTOP ---
Postoperative Evaluation Date, Time and Location Date Performed: 09/14/23 Time Performed: 14:36 Patient Location: Day Surgery Unit Vital Signs Most Recent Imported Vital Signs: Most Recent Vital Signs Temp Pulse Resp BP Pulse Ox 36.5 C 68 16 110/68 98 09/14/23 15:06 09/14/23 15:06 09/14/23 15:06 09/14/23 15:06 09/14/23 15:06 Pain Score Most Recent Pain Score: Most Recent Pain Score Pain Level 0 09/14/23 15:06 Assessment Mental Status: Awake (Alert & Oriented to Patient Baseline) Airway and Respiratory Function: Patent airway with normal (patient baseline) respiratory exam Cardiovascular Function: Hemodynamically Stable Hydration Status: Adequately Hydrated Nausea & Vomiting: No Nausea or Vomiting Pain: Pt. Denies Any Pain Peripheral Nerve Block: Patient did not receive a nerve block
== END 2023-09-14 15:20 | disposition home or self-care (01) ==
PROVIDERS: PCP Nurse Practitioner Family; Visit Provider Student in an Organized Health Care Education/Training Program
PROC: 0DJD8ZZ Inspection of Lower Intestinal Tract, Via Natural or Artificial Opening Endoscopic (ICD-10-PCS; CPT 45378; principal; 2023-09-14 13:30)
DX: Z12.11 Encounter for screening for malignant neoplasm of colon (principal)
CPT/HCPCS: 45378; 00123; 81025

== ENCOUNTER 2024-05-26 10:13 | Outpatient (REF) | payer OTHER, SELFPAY ==
--- NOTE | 2024-05-26 08:45 | PAPFT_PTH ---
PATIENT: Julieta Sen LOC: [facility] U#:[id number] AGE/SX: 43/F ROOM: RE05/26/[address]: SHANIQUA Huston : 1980 BED: DIS: 05/26/2024 SPEC #: [id number] RECD: 05/26/24 13:27 STATUS: VERA REQ #: [id number] ROMAN: 05/26/24 08:[address]: Catarina Min DEPT: [facility] Cytology RECD BY: Bridgette Gardner Tissues: 1 - CX/ENDOCX FOR PAP SMEARS Procedures: PAP THIN PREP/UVM Screening HPV DNA PROBE Comments: [id number] (HPV 16 & 18/45)
--- OUTSIDE RECORDS SUMMARY | 2024-05-26 10:28 | XMS_ITS | Encounter Summary ---
Author Organization [facility] Address [address] [place] [address] Care Team Providers Care Systems Integration Manager Name Role Phone Catarina Min NP Primary Care Provider [phone] Encounter Details Date Type Department Care Team (Late st Contact Info) Description 04/09/2020 Lab Requisition [facility] Pathology & Laboratory Medicine - [facility] [address] [place] [address] Catarina Min NP [address] [place] [address] Encounter for other general examination Social History Tobacco Use Types Packs/Day Years Used Date Smoking Tobacco: Never Assessed Sex and Gender Information Value Date Recorded Sex Assigned at Not on file Gender Identity Not on file Sexual Orientation Not on file documented as of this encounter Plan of Treatment Not on file documented as of this encounter Procedures Procedure Name Priority Date/Time Associated Diagnosis Comments PAP TEST Today 04/08/2020 8:45 EDT Encounter for other general examination HPV DNA DETECTION WITH GENOTYPING, PCR Today 04/08/2020 8:45 EDT Encounter for other general examination documented in this encounter Results * HUMAN PAPILLOMAVIRUS (HPV) DETECTION-HIGH RISK TYPES (04/08/2020 8:45 EDT) HPV other High Risk types, PCR Negative Negative 04/17/2020 14:37 EDT [facility] Comment:No E6 or E7 mRNA is detected from HPV types 16,18,31,33,35,39,45,51,52,56,58,59,66, and 68 by rib trim separator mediated amplification. Papanicolaou smear specimen (specimen) CERVIX UTERI STRUCTURE / Unknown 04/08/2020 8:45 EDT 04/16/2020 15:52 EDT Catarina Min NP MICROBIOLOGY - GENER AL ORDERABLES Performing Organization Address City/[facility] Co de Phone Number [facility] [address] [place] [address] * PAP TEST (04/08/2020 8:45 EDT) Specimens A. Cervix and/or Endocervix , ThinPrep Imaging System with Manual Evaluation 04/17/2020 14:37 T [facility] Specimen Adequacy Satisfactory for Evaluation - transformation zone component present 04/17/2020 14:37 [facility] General Categorization Negative for intraepithelial lesion or malignancy 04/17/2020 14:37 [facility] Attestation . 04/17/2020 14:37 [facility] at 1437 Clinical History SEE ORDER COMMENT 0 04/17/2020 14:37 [facility] HPV The result for the Human Papillomavirus (HPV) Detection-High Risk Types is Negative. No E6 or E7 mRNA is detected from HPV types 16,18,31,33,35,39 ,45,51,52,56,58,5 9,66, and 68 by rib trim separator mediated amplification.Jacqueline ting was performed on specimen [id number] and was resulted on 04/17/2020 1414 EDT by ELAINA, LAB INSTRUMENT RESULTS IN 04/17/2020 14:37 T [facility] Scanned Images 04/17/2020 14:37 T [facility] Papanicolaou smear specimen (specimen) CERVIX UTERI STRUCTURE / Unknown 04/08/2020 8:45 EDT 04/09/2020 11:29 EDT Catarina Min NP PATHOLOGY ORDERABLES [facility] [address] [place] [address] documented in this encounter Visit Diagnoses Diagnosis Encounter for other general examination documented in this encounter Care Teams Systems Integration Manager Relationship Specialty Start Date End Date Catarina Min NP [address] [place] [phone] PCP - General 04/12/19 documented as of this encounter
--- OUTSIDE RECORDS SUMMARY | 2024-05-26 10:28 | XMS_ITS | Encounter Summary ---
Author Organization [facility] Address [address] [place] [address] Care Team Providers Care Design Lead Name Role Phone Unknown, Provider Primary Care Provider Encounter Details Date Type Department Care Team (Late st Contact Info) Description 04/05/2019 Results Only [place] [phone] Adjjohnu, Catarina, PROJECT ANALYST [address] [place] [address] Social History Tobacco Use Types Packs/Day Years Used Date Smoking Tobacco: Never Assessed Sex and Gender Information Value Date Recorded Sex Assigned at Not on file Gender Identity Not on file Sexual Orientation Not on file documented as of this encounter Plan of Treatment Not on file documented as of this encounter Procedures Procedure Name Priority Date/Time Associated Diagnosis Comments PAP TEST- RESULT ONLY Routine 04/05/2019 0:00 EDT documented in this encounter Results * PAP TEST- RESULT ONLY (04/05/2019 0:00 EDT) Pathology Report: CYTOPATHOLOGY REPORT Reports generated via electronic interface contain original data; however they are lacking the format of the original report. Caution should be taken when reading/interpreti ng unformatted reports. Name: ? JULIETA SEN ? Accession #: ? [id number] ? : ? 1980 (Age: 38) ??F ?Collect Date: ? 04/05/2019 ? Location: ? [facility] ? Receive Date: ? 04/07/2019 ? Provider: CATARINA YORK PROJECT ANALYST Copy to: ? Final Report SPECIMEN ADEQUACY ? Satisfactory for Evaluation - transformation zone component present GENERAL CATEGORIZATION ? Epithelial Cell Abnormality INTERPRETATION ? Squamous Cell Abnormality - Low grade squamous intraepithelial lesion (LSIL). EDUCATIONAL NOTES/RECOMMENDATI ONS ? [facility] recommends following ASCCP's 2012 Updated Consensus Guidelines for the Management of Abnormal Cervical Cancer Screening Tests and Cancer Precursors (JLGTD, 2013; 17(5):S1-S27). ??Consensus guidelines are available online at www.asccp.org. Last Menstrual Period: 03/27/19 Treatment History: Colposcopy: NEGATIVE 04/06/18 Infection History: Pos for HPV: 04/06/18 Specimen/Source: ??Pap Test, Cervix/Endocervix, ThinPrep Imaging System with manual evaluation Document reviewed and electronically signed by: ? MARGIE LOPEZ MD ? Report ??Date: 04/11/2019 17:42 HPV with Pap Test ? Date Ordered: ? 04/10/2019 ? Status: ?? Signed Out ?Date Complete: ? 04/13/2019 ? By: ??System Interface ? Date Reported: ? 04/13/2019 ? Interpretation RESULT: POSITIVE FOR HIGH OR INTERMEDIATE RISK HPV. E6 OR E7 mRNA from one or more types of HPV types 16,18,31, 33,35,39,45,51,52, 56,58,59,66, and 68 is detected by fpga design engineer mediated amplification. High and intermediate risk HPV types are associated with most squamous intraepithelial lesions and cervical cancers. Comments Document reviewed and electronically signed by: ? System Interface ? Report date: 04/13/2019 By the signature above, the attending physician certifies that he/she has personally conducted a gross and/or microscopic examination of the described specimens and rendered or confirmed the above diagnosis. End of Report [facility] 04/05/2019 04/07/2019 Catarina York NP PATHOLOGY ORDERABLES [facility] [address] [place] [address] documented in this encounter Visit Diagnoses Not on filedocumented in this encounter Care Teams Design Lead Relationship Specialty Start Date End Date Unknown, Provider, PCP - General 08/09/15 04/11/19 documented as of this encounter
--- OUTSIDE RECORDS SUMMARY | 2024-05-26 10:28 | XMS_ITS | Encounter Summary ---
Author Organization [facility] Address [address] [place] [address] Care Team Providers Care Systems Coordinator Name Role Phone Unknown, Provider Primary Care Provider [phone] Encounter Details Date Type Department Care Team (Latest Contact Info) Description 04/29/2018 15:25 EDT - 04/29/2018 23:59 EDT Hospital Encounter [address] [address] Unknown, Provider, Discharge Disposition: Home or Self Care Social History Tobacco Use Types Packs/Day Years Used Date Smoking Tobacco: Never Assessed Sex and Gender Information Value Date Recorded Sex Assigned at Not on file Gender Identity Not on file Sexual Orientation Not on file documented as of this encounter Discharge Disposition Disposition Code Departure Means Destination Home or Self Skilled Nursing documented in this encounter Plan of Treatment Not on file documented as of this encounter Visit Diagnoses Not on filedocumented in this encounter Care Teams Systems Coordinator Relationship Specialty Start Date End Date Unknown, Provider, PCP - General 08/09/15 04/11/19 documented as of this encounter
--- OUTSIDE RECORDS SUMMARY | 2024-05-26 10:28 | XMS_ITS | Encounter Summary ---
Author Organization [facility] Address [address] [place] [address] Care Team Providers Care Rv Parts And Service Director Name Role Phone Catarina Min NP Primary Care Provider [phone] Encounter Details Date Type Department Care Team (Late st Contact Info) Description 05/19/2021 Lab Requisition [facility] Pathology & Laboratory Medicine - [facility] [address] [place] [address] Catarina Min NP [address] [place] [phone] Encounter for other general examination Social History Tobacco Use Types Packs/Day Years Used Date Smoking Tobacco: Never Assessed Interpersonal Safety Answer Date Record ed Physically Hurt Never 04/28/2020 Verbally Threaten Not on file 04/28/2020 Sex and Gender Information Value Date Recorded Sex Assigned at Not on file Gender Identity Not on file Sexual Orientation Not on file documented as of this encounter Plan of Treatment Not on file documented as of this encounter Procedures Procedure Name Priority Date/Time Associated Diagnosis Comments PAP TEST Today 05/16/2021 13:30 EDT Encounter for other general examination HPV DNA DETECTION WITH GENOTYPING, PCR Today 05/16/2021 13:30 EDT Encounter for other general examination documented in this encounter Results * HUMAN PAPILLOMAVIRUS (HPV) DETECTION-HIGH RISK TYPES (05/16/2021 13:30 EDT) HPV other High Risk types, PCR Negative Negative 06/04/2021 7:15 EDT [facility] Comment:No E6 or E7 mRNA is detected from HPV types 16,18,31,33,35,39,45,51,52,56,58,59,66, and 68 by caustic room attendant mediated amplification. Papanicolaou smear specimen (specimen) CERVIX UTERI STRUCTURE / Unknown 05/16/2021 13:30 EDT 05/30/2021 13:13 EDT Catarina Min NP MICROBIOLOGY - GENER AL ORDERABLES [facility] [address] [place] [address] * PAP TEST (05/16/2021 13:30 EDT) Specimens A. Cervix and/or Endocervix , ThinPrep Imaging System with Manual Evaluation 06/04/2021 7:15 [facility] Specimen Adequacy Satisfactory for Evaluation - transformation zone component present 06/04/2021 7:15 [facility] General Categorization Negative for intraepithelial lesion or malignancy 06/04/2021 7:15 [facility] Descriptive Diagnosis Reactive cellular changes associated with inflammation present (includes repair). 06/04/2021 7:15 [facility] Attestation By the signature below, the attending physician certifies that they have personally conducted a gross and/or microscopic examination of the described specimens and rendered or confirmed the above diagnosis. 06/04/2021 7:15 [facility] at 0715 Clinical History See below 06/04/20 7:15 [facility] HPV The result for the Human Papillomavirus (HPV) Detection-High Risk Types is Negative. No E6 or E7 mRNA is detected from HPV types 16,18,31,33,35,39 ,45,51,52,56,58,5 9,66, and 68 by caustic room attendant mediated amplification.Jacqueline ting was performed on specimen [id number] and was resulted on 06/04/2021 0708 EDT by ELAINA, LAB INSTRUMENT RESULTS IN 06/04/2021 7:15 EDT [facility] Performing Lab [facility] [place] [facility] 06/04/2021 7:15 EDT [facility] Scanned Images 06/04/2021 7:15 EDT [facility] Papanicolaou smear specimen (specimen) CERVIX UTERI STRUCTURE / Unknown 05/16/2021 13:30 EDT 05/19/2021 12:04 EDT Catarina Min NP PATHOLOGY ORDERABLES [facility] [address] [place] [address] documented in this encounter Visit Diagnoses Diagnosis Encounter for other general examination documented in this encounter Care Teams Rv Parts And Service Director Relationship Specialty Start Date End Date Catarina Min NP [address] [place] [id number] PCP - General 04/12/19 documented as of this encounter
--- OUTSIDE RECORDS SUMMARY | 2024-05-26 10:28 | XMS_ITS | Encounter Summary ---
Author Organization [facility] Address [address] [place] [address] Care Team Providers Care Can Tender Name Role Phone Unknown, Provider Primary Care Provider [phone] Encounter Details Date Type Department Care Team (Latest Contact Info) Description 04/05/2019 19:05 EDT - 04/05/2019 23:59 EDT Hospital Encounter [address] [address] Unknown, Provider, Discharge Disposition: Home or Self Care Social History Tobacco Use Types Packs/Day Years Used Date Smoking Tobacco: Never Assessed Sex and Gender Information Value Date Recorded Sex Assigned at Not on file Gender Identity Not on file Sexual Orientation Not on file documented as of this encounter Discharge Disposition Disposition Code Departure Means Destination Home or Self [facility] documented in this encounter Plan of Treatment Not on file documented as of this encounter Visit Diagnoses Not on filedocumented in this encounter Care Teams Can Tender Relationship Specialty Start Date End Date Unknown, Provider, PCP - General 08/09/15 04/11/19 documented as of this encounter
--- OUTSIDE RECORDS SUMMARY | 2024-05-26 10:28 | XMS_ITS | Clinical Summary ---
Author Organization [facility] Address [address] [place] [address] Care Team Providers Care Class C Truck Driver Name Role Phone Catarina Min FOUNTAIN ATTENDANT Primary Care Provider [phone] Social History Tobacco Use Types Packs/Day Years Used Date Smoking Tobacco: Never Assessed Interpersonal Safety Answer Date Record ed Physically Hurt Never 04/28/2020 Verbally Threaten Not on file 04/28/2020 Sex and Gender Information Value Date Recorded Sex Assigned at Not on file Gender Identity Not on file Sexual Orientation Not on file Plan of Treatment Health Maintenance Due Date Last Done Comments Hepatitis C Screen 1980 Hepatitis B Vaccine (1 of 3 - 19+ 3-dose series) 07/08 COVID-19 Vaccine (2022- season) 2023 Care Teams Class C Truck Driver Relationship Specialty Start Date End Date Catarina Min NP [address] [place] [address] [address] [place] [phone] PCP - General 04/12/19
--- OUTSIDE RECORDS SUMMARY | 2024-05-26 10:28 | XMS_ITS | Encounter Summary ---
Author Organization [facility] Address [address] [place] [address] Care Team Providers Care Dyeing Machine Back Tender Name Role Phone Catarina York WELDING PANTOGRAPH OPERATOR Primary Care Provider [phone] Encounter Details Date Type Department Care Team (Late st Contact Info) Description 05/17/2019 Results Only [facility] [phone] Lydia Gomez MD [address] [place], [place] [id number] Social History Tobacco Use Types Packs/Day Years Used Date Smoking Tobacco: Never Assessed Sex and Gender Information Value Date Recorded Sex Assigned at Not on file Gender Identity Not on file Sexual Orientation Not on file documented as of this encounter Plan of Treatment Not on file documented as of this encounter Procedures Procedure Name Priority Date/Time Associated Diagnosis Comments SURGICAL PATHOLOGY Routine 05/17/2019 8:56 EDT documented in this encounter Results * SURGICAL PATHOLOGY (05/17/2019 8:56 EDT) Pathology Report: SURGICAL PATHOLOGY REPORT Reports generated via electronic interface contain original data; however they are lacking the format of the original report. Caution should be taken when reading/interpreting unformatted reports. Name: ? MCKINLEYJULIETA ? Accession #: ? [id number] ? : ? 1980 (Age: 38) ??F ? Collect Date: ? 05/17/2019 ? Location: ? [facility] ? Receive Date: ? 05/17/2019 ? Provider: LYDIA GOMEZ MD Copy to: CATARINA YORK WELDING PANTOGRAPH OPERATOR ? Final Pathologic Diagnosis: ENDOCERVIX, CURETTAGE: - Minute detached fragments of squamous epithelium with low grade squamous intraepithelial lesion (SHAHRZAD I). See comment. - Background fragments of benign endocervical tissue. Comment: Deeper sections have been examined. Customer Trainer slides of this case were reviewed at intradepartmental consultation conference. ?? Document reviewed and electronically signed by: JOSE JUAN FRANKS MD Report ??Date: 05/23/2019 10:10 By the signature above, the attending physician certifies that he/she has personally conducted a gross and/or microscopic examination of the described specimens and rendered or confirmed the above diagnosis. Specimen(s) Received: [facility] Clinical History: Abnormal Pap smear, LGSIL with positive HR HPV, Pap 04/05/19 LGSIL (+)HPV, 04/06/18 LGSIL (+)HPV; LMP: 04/24/2019; fax results to Gross Description: ? Received in formalin labelled with proper patient identification (initials T, L) and endocervix\ECC endocervical curettage is an aggregate of cloudy mucin (0.5 x 0.5 x 0.3 cm). The specimen is submitted entirely in 1. RAMOS Horton (ASCP) 05/18/2019 9:47 AM End of Report [facility] 05/17/2019 8:56 EDT 05/17/2019 8:56 EDT Lydia Gomez MD PATHOLOGY ORDERABLES [facility] [address] [place] [address] documented in this encounter Visit Diagnoses Not on filedocumented in this encounter Care Teams Dyeing Machine Back Tender Relationship Specialty Start Date End Date Catarina York NP [address] [place], [place] [address] [place] [address] PCP - General 04/12/19 documented as of this encounter
--- OUTSIDE RECORDS SUMMARY | 2024-05-26 10:28 | XMS_ITS | Encounter Summary ---
Author Organization [facility] Address [address] [place] [address] Care Team Providers Care Manager Communication Name Role Phone Catarina Min COMPUTER CONSOLE OPERATOR Primary Care Provider [phone] Encounter Details Date Type Department Care Team (Latest Contact Info) Description 05/17/2019 10:31 EDT - 05/17/2019 23:59 EDT Hospital Encounter [address] [address] Unknown, Provider, Discharge Disposition: Home or Self Care Social History Tobacco Use Types Packs/Day Years Used Date Smoking Tobacco: Never Assessed Sex and Gender Information Value Date Recorded Sex Assigned at Not on file Gender Identity Not on file Sexual Orientation Not on file documented as of this encounter Discharge Disposition Disposition Code Departure Means Destination Home or Self Residential documented in this encounter Plan of Treatment Not on file documented as of this encounter Visit Diagnoses Not on filedocumented in this encounter Care Teams Manager Communication Relationship Specialty Start Date End Date Catarina Min NP [address] [place] [address] [address] [place] [address] PCP - General 04/12/19 documented as of this encounter
--- OUTSIDE RECORDS SUMMARY | 2024-05-26 10:28 | XMS_ITS | Referral Summary ---
Author Organization [facility] Address [address] [place] [address] Care Team Providers Care Steward/Stewardess Third Name Role Phone Catarina Min ECONOMIC RESEARCH ASSISTANT Primary Care Provider [phone] Social History Tobacco Use Types Packs/Day Years Used Date Smoking Tobacco: Never Assessed Interpersonal Safety Answer Date Record ed Physically Hurt Never 04/28/2020 Verbally Threaten Not on file 04/28/2020 Sex and Gender Information Value Date Recorded Sex Assigned at Not on file Gender Identity Not on file Sexual Orientation Not on file Plan of Treatment Not on file Care Teams Steward/Stewardess Third Relationship Specialty Start Date End Date Catarina Min NP [address] [place] [address] [address] [place] [phone] PCP - General 04/12/19
--- OUTSIDE RECORDS SUMMARY | 2024-05-26 10:29 | XMS_ITS | Encounter Summary ---
Author Organization [facility] Address [facility] [place] [address] Care Team Providers Care Head Turning Machine Operator Name Role Phone Aileen Gonzalez MD Primary Care Provider [phone] Reason for Visit * Reason Comments Right Hip Pain Encounter Details Date Type Department Care Team (Late st Contact Info) Description 12/27/2015 9:30 AM EDT Office [place] [address] Miles Landry MD [facility] [place] [address] Status post arthroscopy of hip Social History Tobacco Use Types Packs/Day Years Used Date Smoking Tobacco: Never Smokeless Tobacco: Never Alcohol Use Standard Drinks/Week Comments Yes 0 (1 standard drink = 0.6 oz pur e alcohol) Sex and Gender Information Value Date Recorded Sex Assigned at Not on file Gender Identity Female 02/13/2020 11:32 AM EDT Sexual Orientation Not on file documented as of this encounter Last Filed Vital Signs Vital Sign Reading Time Taken Comments Blood Pressure 113/71 12/27/2015 9:38 AM EDT Pulse 64 12/27/2015 9:38 AM EDT Temperature - - Respiratory Rate - - Oxygen Saturation - - Inhaled Oxygen Concentration - - Weight 67.1 kg (148 lb) 12/27/2015 9:38 AM EDT c lothed Height 172.7 cm (5' 8) 12/27/2015 9:38 AM EDT Body Mass Index 22.5 12/27/2015 9:38 AM EDT documented in this encounter Progress Notes * Romaine Chamorro PA - 12/27/2015 9:57 AM EDT Case Date: 04/24/2015 Surgeon: Surgeon(s) and Role: * Miles Landry MD - Primary Procedure(s): ARTHROSCOPY HIP W/LABRAL REPAIR ARTHROSCOPY HIP W/Limited Femoroplasty ARTHROSCOPY HIP W/Capsular repair/imbrication. HPI: 35 yo female returns 9 months from arthroscopy. She continues to do well. There is some discomfort associated with increased activiity. Baseline activity is well tolerated. She continues to workwith PT. ROM is improved. She feels her right hip has no strength deficits. She has no complaints at this point. She is feeling well aside from the hip. PE: Ambulatory without assist or antalgia. When supine leg lengths are equal. No pain or weakness with straight leg raise; no pain with resisted straight leg raise. ROM is well tolerated with pain orapprehension. Mild discomfort with impingement; IR well tolerate. Flexion to 135 today; IR to 30 and ER to 50. No pain or weakness with resisted flexion, IR or ER. Assessment: S/P Right hip arthroscopy Plan: She has done well. There is no appreciable ROM or strength deficits. I encouraged continued work toward strength and balance maintenance. We'll see her again as needed. documented in this encounter Plan of Treatment Not on file documented as of this encounter Visit Diagnoses Diagnosis Status post arthroscopy of hip documented in this encounter Care Teams Head Turning Machine Operator Relationship Specialty Start Date End Date Aileen Gonzalez MD [address] [place] [address] PCP - General 08/19/10 10/02/18 documented as of this encounter
--- OUTSIDE RECORDS SUMMARY | 2024-05-26 10:29 | XMS_ITS | Encounter Summary ---
Author Organization [facility] Address [facility] [place] [address] Care Team Providers Care Supervisor Cabinetmaker Name Role Phone YeniCatarina hamm APRN Primary Care Provider [phone] Encounter Details Date Type Department Care Team (Late st Contact Info) Description 10/14/2018 Orders Only [place] [address] Rei, RAMOS Estrella [facility] DR ORTHOPAED[place] [address] Pain in right wrist Social History Tobacco Use Types Packs/Day Years [...] on file documented as of this encounter Results * XR Wrist Complete Min 3 views Right (Generic) (10/14/2018 9:35 AM EST) Anatomical Region Laterality Modality Right Digital Radiogra phy Impressions 10/14/2018 10:03 AM EST No fracture or dislocation 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 Thank you for letting us participate in the care of this patient. For questions regarding this report, please contact the number below. ? Narrative 10/14/2018 10:03 AM EST EXAMINATION: XR WRIST COMPLETE MIN 3 VIEWS RIGHT (GENERIC), XR HAND MIN 3 VIEWS RIGHT (GENERIC) CLINICAL HISTORY: Right wrist pain, entered by ordering provider TECHNIQUE: 4 views RIGHT wrist; 3 views RIGHT hand COMPARISON: Outside MRI September 2018. FINDINGS: Bones: No fracture in hand or wrist Joints: Normal alignment Basal joint-small osteophytes but relative preserved joint spaces. Soft tissue: Normal. Procedure Note Maritza Angelo MD - 10/14/2018 EXAMINATION: XR WRIST COMPLETE MIN 3 VIEWS RIGHT (GENERIC), XR HAND MIN 3VIEWS RIGHT (GENERIC) CLINICAL HISTORY: Right wrist pain, entered by ordering provider TECHNIQUE: 4 views RIGHT wrist; 3 views RIGHT hand COMPARISON: OutsideMRI September 2018. FINDINGS: Bones: No fracture in hand or wrist Joints: Normal alignment Basal joint-small osteophytes but relative preserved joint spaces. Soft tissue: Normal. 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 Thank you for letting us participate in the care of this patient. Forquestions regarding this report, please contact the number below. Alexis Dumont MD IMG DX ORDERABLES documented in this encounter Visit Diagnoses Diagnosis Pain in right wrist Pain in joint, forearm Pain in right wrist Pain in joint, forearm documented in this encounter Care Teams Supervisor Cabinetmaker Relationship Specialty Start Date End Date Astrid MinRUBY gregg [address] [place] [address] [address] [facility] [address] [place] [address] PCP - General Family Medicine 10/03/18 12/03/19 documented as of this encounter
--- OUTSIDE RECORDS SUMMARY | 2024-05-26 10:29 | XMS_ITS | Encounter Summary ---
Author Organization [facility] Address [facility] [place] [address] Care Team Providers Care Office Copy Selector Name Role Phone Aileen Gonzalez MD Primary Care Provider [phone] Reason for Visit * Reason Comments Right Hip Pain right hip scopr 04/24 Encounter Details Date Type Department Care Team (Late st Contact Info) Description 06/18/2015 11:30 AM EDT Office [place] [address] Miles Landry MD [facility] [place] [address] s/p R hip labral repair, femoroplasty 04/24/15 (Gris) Discharge Disposition: Home Social History Tobacco Use Types Packs/Day Years Used Date Smoking Tobacco: Never Smokeless Tobacco: Never Alcohol Use Standard Drinks/Week Comments Yes 0 (1 standard drink = 0.6 oz pur e alcohol) Not since surgery Sex and Gender Information Value Date Recorded Sex Assigned at Not on file Gender Identity Female 02/13/2020 11:32 AM EDT Sexual Orientation Not on file documented as of this encounter Last Filed Vital Signs Vital Sign Reading Time Taken Comments Blood Pressure 110/66 06/18/2015 11:44 AM EDT Pulse 60 06/18/2015 11:44 AM EDT Temperature - - Respiratory Rate - - Oxygen Saturation - - Inhaled Oxygen Concentration - - Weight 65.8 kg (145 lb) 06/18/2015 11:44 AM EDT fully clothed Height 171.5 cm (5' 7.5) 06/18/2015 11:44 AM ED T verbal Body Mass Index 22.38 06/18/2015 11:44 AM EDT documented in this encounter Progress Notes * Miles Landry MD - 06/18/2015 2:30 PM EDT Case Date: 04/24/2015 Postoperative diagnosis: Labral tear right hip with anterior CEA of 24 and mild BART. Procedure(s): ARTHROSCOPY HIP W/LABRAL REPAIR ARTHROSCOPY HIP W/Limited Femoroplasty ARTHROSCOPY HIP W/Capsular repair/imbrication. Julieta returns two months status post hip arthroscopy on the right. She is doing well. She has been working with PT although has been missing with her therapist for the last week or 10 days. Overall she is feeling positive about her progress. She comments that she walked in from the car today with really no pain in the hip. She continues with some pain at the extremes of motion, particularly flexion and flexion/internal rotation. Physical exam shows well-healed incisions. Hip flexes comfortably to 90, even to 100. At about 105 she gets some anterior pain. At 90 degrees of flexion internal rotation to 20 is tolerated well. At about 35 she gets some tightness. Same with flexion, adduction, internal rotation. Her leg lies symmetric. She appears to have good strength around her quadriceps. Impression: Two months postop, doing well. We talked about cycling and walking progression, and we will see her back in two months' time to plan a running progression. documented in this encounter Plan of Treatment Not on file documented as of this encounter Visit Diagnoses Diagnosis s/p R hip labral repair, femoroplasty 04/24/15 (Gris) Pain in joint, pelvic region and thigh documented in this encounter Care Teams Office Copy Selector Relationship Specialty Start Date End Date Aileen Gonzalez MD [address] [place] [address] PCP - General 08/19/10 10/02/18 documented as of this encounter
--- OUTSIDE RECORDS SUMMARY | 2024-05-26 10:29 | XMS_ITS | Encounter Summary ---
Author Organization [facility] Address [facility] [place] [address] Care Team Providers Care Family Consumer Science Fcs Teacher Name Role Phone Aileen Gonzalez MD Primary Care Provider [phone] Reason for Visit * Reason Onset Date Comments Injections 03/07/2015 Appointment 03/07/2015 Encounter Details Date Type Department Care Team (Late st Contact Info) Description 03/07/2015 Telephone [place] [id number] Miles Landry MD [facility] [place] [address] Injections; Appointment Social History Tobacco Use Types Packs/Day Years Used Date Smoking Tobacco: Never Smokeless Tobacco: Never Alcohol Use Standard Drinks/Week Comments Yes 0 (1 standard drink = 0.6 oz pur e alcohol) Sex and Gender Information Value Date Recorded Sex Assigned at Not on file Gender Identity Female 02/13/2020 11:32 AM EDT Sexual Orientation Not on file documented as of this encounter Miscellaneous Notes * Telephone Encounter - Mey Reeves - 03/11/2015 9:20 AM EDT Scheduled 03/19/15 at 3PM. * Telephone Encounter - Fany Zarco - 03/08/2015 4:51 PM EDT Patient calls on 03/08 requesting another R hip injection. She has been managing R hip pain with known labral tear for about a year and a half with good response to injections, her most recent of which was in June 2014. She last saw Dr. Landry in September of 2013. She has noticed the pain returning again, a bit more significant than previously and is considering surgical management. 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 I told her that this was very likely a possibility, but given that it has been over a year since her last visit with Dr. Landry I would recommend returning for repeat evaluation and to discuss care home treatment plan. She comes from quite a distance in [place], [place] and would like to combine an injection appt with her appt with Dr. Landry - that way if that is the plan she will already be here and can have that scheduled. If upon Dr. Landry evaluation the plan changes, the injection appt can always be cancelled. I also mentioned that she is due for new xrays since her l ast were in July of 2013. She was in agreement to this plan and was very appreciative. Orders placed for xrays and injection. Please call patient to schedule fluoro injection following appt with Dr. Landry on 03/19. These shouldbe at 3pm or later. She will plan to have a escort vehicle driver. Message routed to secretaries for injection scheduling. documented in this encounter Plan of Treatment Not on file documented as of this encounter Results * XR pelvis AP and hip 2 views of 1 hip (03/19/2015 12:54 PM EDT) Anatomical Region Laterality Modality Pelvis, Hip N/A Radiographic Tia ging 03/19/2015 12:5 4 PM EDT Addenda Addendum by Amy Lee MD on 05/03/2015 12:21 PM EDT Addendum Begins TECHNIQUE: AP pelvis, AP and lateral views of the right hip Addendum Ends Addendum by ELAINA, UNSIGNED REPORT on 05/03/2015 12:21 PM EDT Addendum Begins TECHNIQUE: AP pelvis, AP and lateral views of the right hip Addendum Ends Addendum by ELAINA, UNSIGNED REPORT on 04/19/2015 1:45 PM EDT Addendum Begins TECHNIQUE: AP pelvis, AP and lateral views of the right hip Addendum Ends Impressions 03/19/2015 2:20 PM EDT IMPRESSION: Small marginal acetabular osteophytes with normal hip joint space. Equivocal for minimal overgrowth of the anterior right acetabular wall, better seen on the last radiograph. This report was reviewed by Maritza Angelo at 03/19/2015 2:15 PM Film and interpretation reviewed by the attending Film and interpretation reviewed by the attending Narrative 03/19/2015 2:20 PM EDT EXAMINATION: AP PELVIS AND 2 VIEWS ONE HIP/RIGHT CLINICAL HISTORY: ongoing R hip pain, known labral tear TECHNIQUE: AP pelvis, lateral views of the right hip COMPARISON: 07/28/2013 FINDINGS: The right hip joint space is maintained. However, there are small marginal osteophytes at the superior acetabulum. No osseous bumps at bilateral femoral head neck junction. There is slight overgrowth of the right anterior acetabular wall, better seen on the 2013 examination. No fracture or dislocation. Left hip is normal. Procedure Note Maritza Angelo MD / ELAINA, UNSIGNED REPORT / Amy Lee MD - 05/03/2015 EXAMINATION: AP PELVIS AND 2 VIEWS ONE HIP/RIGHT CLINICAL HISTORY: ongoing R hip pain, known labral tear TECHNIQUE: AP pelvis, lateral views of the right hip COMPARISON: 07/28/2013 FINDINGS: The right hip joint space is maintained. However, there aresmall marginal osteophytes at the superior acetabulum. No osseous bumps atbilateral femoral head neck junction. There is slight overgrowth of the rightanterior acetabular wall, better seen on the 2013 examination. No fracture or dislocation. Left hip is normal. IMPRESSION IMPRESSION: Small marginal acetabular osteophytes with normal hip joint space. Equivocal for minimal overgrowth of the anterior right acetabular wall,better seen on the last radiograph. This report was reviewed by Maritza Angelo at 03/19/2015 2:15 PM Film and interpretation reviewed by the attending Film and interpretation reviewed by the attending Miles Landry MD IMG DX ORDERABLES documented in this encounter Visit Diagnoses Diagnosis Pain in right hip Pain in joint, pelvic region and thigh Pain in right hip Pain in joint, pelvic region and thigh documented in this encounter Care Teams Family Consumer Science Fcs Teacher Relationship Specialty Start Date End Date Aileen Gonzalez MD [address] [place] [address] PCP - General 08/19/10 10/02/18 documented as of this encounter
--- OUTSIDE RECORDS SUMMARY | 2024-05-26 10:29 | XMS_ITS | Encounter Summary ---
Author Organization [facility] Address [facility] [place] [address] Care Team Providers Care Adapted Physical Education Specialist Name Role Phone Aileen Gonzalez MD Primary Care Provider [phone] Reason for Referral * Physical Therapy (Routine) - Closed Specialty Diagnoses / Procedures Referred By Contac t Referred To Contact Physical Therapy Diagnoses Right hip pain Miles Landry MD [facility] [place] [address] Referral ID Status Reason Start Date Expiration Date V isits Requested Visits Authorized [id number] Closed Evaluate and Treat 03/19/2015 09/15/2015 12 12 Reason for Visit * Reason Comments Right Hip Pain Discuss Surgery Encounter Details Date Type Department Care Team (Late st Contact Info) Description 03/19/2015 1:45 PM EDT Office [place] [address] Miles Landry MD [facility] [place] [address] Right hip pain (Primary Dx) Discharge Disposition: Home Social History Tobacco Use [...] Sign Reading Time Taken Comments Blood Pressure 112/63 03/19/2015 2:02 PM EDT Pulse 57 03/19/2015 2:02 PM EDT Temperature - - Respiratory Rate - - Oxygen Saturation - - Inhaled Oxygen Concentration - - Weight 66.2 kg (146 lb) 03/19/2015 2:02 PM EDT v erbal Height 170.2 cm (5' 7) 03/19/2015 2:02 PM EDT v erbal Body Mass Index 22.87 03/19/2015 2:02 PM EDT documented in this encounter Progress Notes * Fany Zarco - 03/19/2015 3:10 PM EDT Surgical Consent with AT-Physician Rotoprinter: Learning Needs Assessment Reviewed: Yes The surgical consent was reviewed with the patient. Procedure, risks, and benefits were reviewed. Questions were solicited and answered. The patient understands these and the surgical consent was signed. H & P will be completed day of in pre-op. Patient was given a DME order for crutches. This can be obtained from any DME provider or medical equipment [email or web address]. Patient was given a referral for physical therapy and a post operative protocol for their procedure. Patient understands the expectations around post operative physical therapy and that this is an important component of their recovery. They were instructed to schedule their first post operative appointment prior to the day of surgery. They were instructed that this should be scheduled for 2-5 days from the date of surgery. Patient plans to pursue PT with Jose Mcgill in [place]. Her activity goals are to return to: running, mountain biking, gardening, playing with her 2 young boys Patient was given a bottle of Hibiclense to be used in the shower the night before and the morning of their procedure. Showering instructions were reviewed. Patient was brought to the surgical schedulers to select a surgical date. Fany Zarco M.Ed, ATC, [facility] Inseam Trimming Machine Operator-Physician Rotoprinter to Dr. Ari Landry Department of Orthopaedics Division of Sports Medicine * Miles Landry MD - 03/19/2015 2:54 PM EDT Chief Complaint: Followup right hip pain. HPI: Julieta Sen is a 34-year-old female who I first saw in July 2013 at which point she had an MRI scan and clinical exam consistent with an anterolateral labral tear, perhaps a very mild dysplasia. She has been managing with intermittent injections over the last two years. She has now had a total of three injections, each lasting a good four to six months. She is now wondering about whether or not she should continue with intermittent injections or whether or not she should be considering surgery. She continues with pain in the groin, a pinching feeling, worse with flexion activities like prolonged sitting and bike riding. Physical Exam: Ms. Sen is an active, healthy 34-year-old female in no acute distress. Examination of her right lower extremity shows flexion to 120 at which point she gets pain. At 90 degrees of flexion she has 25 degrees of internal rotation, 45 degrees of external rotation. Pain at the extreme of internal rotation and pain with flexion, adduction and internal rotation. Her MRI scan is outdated so I do not have it to review directly. Notes prior suggest a cystic change within the anterolateral labrum and normal bony anatomy. Cardiovascular: Regular rate and rhythm. Lungs: Clear to auscultation bilaterally. Impression: Symptomatic labral tear in an active, healthy 34-year-old. Plan: I think at this time a surgical approach is reasonable. She is interested in pursuing this this summer. I had her meet with Fany Caldwell ATC, to review a timeframe around surgery, expected recovery time and rehab needs. We will plan to obtain surgical consent on the day of surgery and send her to surgical scheduling today. documented in this encounter Plan of Treatment Scheduled Referrals Name Type Priority Associated Diagnoses Orde r Schedule Referral to Physical Therapy Outpatient Referral Routine Right hip pain Ordered: 03/19/2015 documented as of this encounter Procedures Procedure Name Priority Date/Time Associated Diagnosis Comments ARTHROSCOPY HIP W/LABRAL REPAIR Routine 03/19/2015 2:44 PM EDT Right hip pain documented in this encounter Visit Diagnoses Diagnosis Right hip pain- Primary Pain in joint, pelvic region and thigh documented in this encounter Care Teams Adapted Physical Education Specialist Relationship Specialty Start Date End Date Aileen Gonzalez MD [address] [place] [address] PCP - General 08/19/10 10/02/18 documented as of this encounter
--- OUTSIDE RECORDS SUMMARY | 2024-05-26 10:29 | XMS_ITS | Encounter Summary ---
Author Organization [facility] Address [facility] [place] [address] Care Team Providers Care Ammunition Officer Name Role Phone Catarina Min APRN Primary Care Provider Encounter Details Date Type Department Care Team (Latest Contact Info) Description 10/14/2018 9:04 AM EST - 10/14/2018 9:23 AM [facility] Hospital Encounter XRay at [address] [place] [address] Alexis Dumont MD [facility] [place] [address] Right wrist pain; Right hand pain Discharge Disposition: Home Social History Tobacco Use [...] on file documented as of this encounter Medications at Time of Discharge Medication Sig Dispensed Refills Start Date End Date rizatriptan (MAXALT) 10 mg Tablet TAKE ONE TABLET BY MOUTH ONCE AT ONSET OF HEADACHE AND IF NO RELIEF MAY REPEAT IN 2 HOURS 1 07/28/2018 benzonatate (TESSALON) 100 mg Capsule TAKE 1 2 CAPSULES BY MOUTH 3 TIMES A DAY NEEDED FOR COUGH 0 10/10/2018 11/23/2023 traZODone (DESYREL) 50 mg Tablet 09/29/2018 11/23/2023 fluocinonide (LIDEX) 0.05 % cream Apply topically as needed. 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 Thank you for letting us participate in the care of this patient. For questions regarding this report, please contact the number below. ? Electronically signed by: Maritza Angelo [facility] ([phone]), at 10/14/2018 10:03 AM Narrative 10/14/2018 10:03 AM EST EXAMINATION: XR [...] this report, please contact the number below. Electronically signed by: Maritza Angelo [facility]([phone]), at 10/14/2018 10:03 AM Alexis Dumont MD IMG DX ORDERABLES documented in this encounter Visit Diagnoses Diagnosis Right wrist pain Pain in joint, forearm Right hand pain Pain in limb documented in this encounter Care Teams Ammunition Officer Relationship Specialty Start Date End Date Catarina Min APRN [address] [place] [address] PCP - General Family Medicine 10/03/18 12/03/19 documented as of this encounter
--- OUTSIDE RECORDS SUMMARY | 2024-05-26 10:29 | XMS_ITS | Encounter Summary ---
Author Organization [facility] Address [address] [place] [address] Care Team Providers Care Hoop Rolls Operator Name Role Phone Unavailable Primary Care Provider Unavailabl e Encounter Details Date Type Department Care Team (Late st Contact Info) Description 03/29/2007 Results Only [facility] - [facility] [address] [place] [address] [place], [place] [id number] Social History Tobacco Use Types Packs/Day Years Used Date Smoking Tobacco: Never Assessed Sex and Gender Information Value Date Recorded Sex Assigned at Not on file Gender Identity Not on file Sexual Orientation Not on file documented as of this encounter Plan of Treatment Not on file documented as of this encounter Procedures Procedure Name Priority Date/Time Associated Diagnosis Comments CYTOPATHOLOGY Routine 03/29/2007 0:00 EDT documented in this encounter Results * CYTOPATHOLOGY (03/29/2007 0:00 EDT) Pathology Report: CYTOPATHOLOGY REPORT Reports generated via electronic interface contain original data; however they are lacking the format of the original report. Caution should be taken when reading/interpreti ng unformatted reports. Name: ? JULIETA SEN ? Accession #: ? [id number] : ? 1980 (Age: 26) ??F ?Collect Date: ? 03/29/2007 Location: ? [facility] ? Receive Date: ? 03/31/2007 Provider: ?AILEEN BRASHER CNM Copy to: ? Specimen/Source: ?ThinPrep Pap Test, Cervix/Endocervix, processed on [employer] ThinPrep Imaging System, with manual evaluation Last Menstrual Period: ? 05/25/06 Menstrual/Pregnanc y Status: ? Post Other: ? HPVA - HPV testing requested if ASC-US on the current ThinPrep Pap test. ? SPECIMEN ADEQUACY ? Satisfactory for Evaluation - transformation zone component present GENERAL CATEGORIZATION ? Negative for Intraepithelial Lesion or Malignancy ? Document reviewed and electronically signed by: ? Barbara Bell, SUSAN(ASCP) ? Report Date: ??04/06/2007 16:30 End of Report BRANDI ZHONG 03/29/2007 03/31/2007 Aileen Brasher CNM PATHOLOGY ORDERABLES Performing Organization Address City/State/[facility] Co de Phone Number BRANDI ZHONG [address] [place] [address] documented in this encounter Visit Diagnoses Not on filedocumented in this encounter
--- OUTSIDE RECORDS SUMMARY | 2024-05-26 10:29 | XMS_ITS | Encounter Summary ---
Author Organization [facility] Address [address] [place] [address] Care Team Providers Care Waste Salvager Name Role Phone Unknown, Provider Primary Care Provider [phone] Encounter Details Date Type Department Care Team (Late st Contact Info) Description 04/06/2018 Results Only [facility] [phone] Adjjohnu, Catarina, [employer] FACTORY WORKER [address] [place] [address] Social History Tobacco Use Types [...] Diagnosis Comments PAP TEST- RESULT ONLY Routine 04/06/2018 0:00 EDT documented in this encounter Results * PAP TEST- RESULT ONLY (04/06/2018 0:00 EDT) Pathology Report: CYTOPATHOLOGY REPORT Reports generated via electronic interface contain original data; however they are lacking the format of the original report. Caution should be taken when reading/interpreti ng unformatted reports. Name: ? JULIETA SEN ? Accession #: ? [id number] ? : ? 1980 (Age: 37) ??F ?Collect Date: ? 04/06/2018 ? Location: ? [facility] ? Receive Date: ? 04/08/2018 ? Provider: CATARINA YORK [employer] FACTORY WORKER Copy to: ? Final Report SPECIMEN ADEQUACY ? Satisfactory for Evaluation - transformation zone component present GENERAL CATEGORIZATION ? Epithelial Cell Abnormality INTERPRETATION ? Squamous Cell Abnormality - Low grade squamous intraepithelial lesion (LSIL). EDUCATIONAL NOTES/RECOMMENDATI ONS ? [facility] recommends following ASCCP's 2012 Updated Consensus Guidelines for the Management of Abnormal Cervical Cancer Screening Tests and Cancer Precursors (JLGTD, 2013; 17(5):S1-S27). ??Consensus guidelines are available online at www.asccp.org. Last Menstrual Period: 03/24/18 Specimen/Source: ??Pap Test, Cervix/Endocervix, ThinPrep Imaging System with manual evaluation Document reviewed and electronically signed by: ? VICKY PORTER MD ? Report ??Date: 04/20/2018 13:22 HPV with Pap Test ? Date Ordered: ? 04/20/2018 ? Status: ?? Signed Out ?Date Complete: ? 04/21/2018 ? By: ??System Interface ? Date Reported: ? 04/21/2018 ? Interpretation RESULT: POSITIVE FOR HIGH OR INTERMEDIATE RISK HPV. E6 OR E7 mRNA from one or more types of HPV types 16,18,31, 33,35,39,45,51,52, 56,58,59,66, and 68 is detected by inspector of dredging mediated amplification. High and intermediate risk HPV types are associated with most squamous intraepithelial lesions and cervical cancers. Comments Document reviewed and electronically signed by: ? System Interface ? Report date: 04/21/2018 By the signature above, the attending physician certifies that he/she has personally conducted a gross and/or microscopic examination of the described specimens and rendered or confirmed the above diagnosis. End of Report [facility] 04/06/2018 04/08/2018 Catarina York NP PATHOLOGY ORDERABLES [facility] [address] [place] [address] documented in this encounter Visit Diagnoses Not on filedocumented in this encounter Care Teams Waste Salvager Relationship Specialty Start Date End Date Unknown, Provider, PCP - General 08/09/15 04/11/19 documented as of this encounter
--- OUTSIDE RECORDS SUMMARY | 2024-05-26 10:29 | XMS_ITS | Encounter Summary ---
Author Organization [facility] [place] [address] Care Team Providers Care Lobbyist Name Role Phone Aileen Gonzalez MD Primary Care Provider [phone] Encounter Details Date Type Department Care Team (Late st Contact Info) Description 08/30/2015 1:00 PM EST Office Visit Physical Therapy at [facility] [address] [place] [phone] Peter Cobos, PT Right hip pain; s/p R hip labral repair, femoroplasty 04/24/15 ([place]) Social History Tobacco Use Types Packs/Day Years Used Date Smoking Tobacco: Never Smokeless Tobacco: Never Alcohol Use Standard Drinks/Week Comments Yes 0 (1 standard drink = 0.6 oz pur e alcohol) Sex and Gender Information Value Date Recorded Sex Assigned at Not on file Gender Identity Female 02/13/2020 11:32 AM EDT Sexual Orientation Not on file documented as of this encounter Progress Notes * Peter Cobos, PT - 08/30/2015 1:19 PM EST PHYSICAL THERAPY Brief [facility] Referring Provider: Miles Landry Diagnosis: 1. Right hip pain 2. s/p R hip labral repair, femoroplasty 04/24/15 ([place]) Total treatment time: 10 minutes Total coded time: 0 minutes S: Patient reports that she is currently 4 months s/p the above procedure for the RT hip. She has been doing very well and has continued to work with PT with longer term follow-ups. She is here to discuss a return to running progression. She has run half marathons in the past and would like to complete a sprint triathlon in the coming summer. She reports very little symptoms in the hip. She went running once with her children and had a significant feeling of fatigue in the anterior right hip without a feeling of pain. Pain over the last 24 hours for the RT hip: Best: 0 /10 Functional Limitations: return to running O: THERAPEUTIC EXERCISE: No charge Patient instructed in: ?? Reviewed and provided return to running progression ([email or web address] level I) ?? Reviewed high chris (~170 spm) and 10% increase in self selected chris ?? Reviewed progression loading/training of the hip flexors with guidance of PT for progression of running and sport activity Patient provided with a written program after proper instruction. A: Pt is a 35 y.o. female presenting to initiate a return to running consistent with above impairments. Patient was instructed in an appropriate running progression demonstrated good understanding ofrationale and performance. Patient was urged to call clinic with any further questions or concerns. P: Frequency and duration: Initiation of a return to running progression (level I) with scheduled follow-ups with established PT Patient understands and agrees with our rehab plan, written home exercise program , and goals of this treatment. Peter Cobos PT, DPT, CSCS documented in this encounter Plan of Treatment Not on file documented as of this encounter Visit Diagnoses Diagnosis Right hip pain Pain in joint, pelvic region and thigh s/p R hip labral repair, femoroplasty 04/24/15 ([place]) Pain in joint, pelvic region and thigh documented in this encounter Care Teams Lobbyist Relationship Specialty Start Date End Date Aileen Gonzalez MD [address] [place] [address] PCP - General 08/19/10 10/02/18 documented as of this encounter
--- OUTSIDE RECORDS SUMMARY | 2024-05-26 10:29 | XMS_ITS | Encounter Summary ---
Author Organization [facility] Address [address] [place] [address] Care Team Providers Care Printing Pressman Name Role Phone Unknown, Provider Primary Care Provider [phone] Encounter Details Date Type Department Care Team (Late st Contact Info) Description 04/29/2018 Results Only [facility] [phone] Zulma Metzger MD [address] [place] [address] Social History Tobacco Use Types Packs/Day Years Used Date Smoking Tobacco: Never Assessed Sex and Gender Information Value Date Recorded Sex Assigned at Not on file Gender Identity Not on file Sexual Orientation Not on file documented as of this encounter Plan of Treatment Not on file documented as of this encounter Procedures Procedure Name Priority Date/Time Associated Diagnosis Comments SURGICAL PATHOLOGY Routine 04/29/2018 15 :47 EDT documented in this encounter Results * SURGICAL PATHOLOGY (04/29/2018 15:47 EDT) Pathology Report: SURGICAL PATHOLOGY REPORT Reports generated via electronic interface contain original data; however they are lacking the format of the original report. Caution should be taken when reading/interpreti ng unformatted reports. Name: ? JULIETA SEN ? Accession #: ? [id number] ? : ? 1980 (Age: 37) ??F ? Collect Date: ? 04/29/2018 ? Location: ? [facility] ? Receive Date: ? 05/02/2018 ? Provider: ZULMA METZGER MD Copy to: ? Final Pathologic Diagnosis: ENDOCERVIX, CURETTAGE: - Benign endocervical tissue. See comment. 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 The LSIL cells as seen on the Pap are not identified on the current endocervical curettage, even upon review of deeper levels. No squamous epithelium is seen on the ECC. (Dr. Tan)/jds ?? Document reviewed and electronically signed by: JESSICA TAN MD Report ??Date: 05/03/2018 16:10 By the signature above, the attending physician certifies that he/she has personally conducted a gross and/or microscopic examination of the described specimens and rendered or confirmed the above diagnosis. Specimen(s) Received: Endocervical curettings Clinical History: Clinical diagnosis code: R87.612, R87.810 Gross Description: ? Received in formalin labelled with proper patient identification (initials T, L) and ECC is an aggregate of cloudy, blood-tinged mucin (1.2 x 0.7 x 0.4 cm). The specimen is submitted entirely in 1. RAMOS Horton (ASCP) 05/02/2018 3:55 PM End of Report [facility] 04/29/2018 15:4 7 EDT 05/02/2018 15:47 EDT Zulma Metzegr MD PATHOLOGY ORDERABL ES [facility] [address] [place] [address] documented in this encounter Visit Diagnoses Not on filedocumented in this encounter Care Teams Printing Pressman Relationship Specialty Start Date End Date Unknown, Provider, PCP - General 08/09/15 04/11/19 documented as of this encounter
--- OUTSIDE RECORDS SUMMARY | 2024-05-26 10:29 | XMS_ITS | Encounter Summary ---
Author Organization [facility] Address [facility] [place] [address] Care Team Providers Care Payroll Consultant Name Role Phone Catarina Min APRN Primary Care Provider Encounter Details Date Type Department Care Team (Latest Contact Info) Description 10/14/2018 9:24 AM EST - 10/14/2018 11:59 PM [facility] Encounter XRay at [address] [place] [address] Alexis Dumont MD [facility] [place] [address] Pain in right wrist Discharge Disposition: Home Social History Tobacco Use [...] Name Priority Date/Time Associated Diagnosis Comments XR WRIST 3 VIEWS RIGHT Routine 10/14/2018 9:35 AM EST Pain in right wrist documented in this encounter Results * XR Wrist Complete [...] forearm documented in this encounter Care Teams Payroll Consultant Relationship Specialty Start Date End Date Mechelle RUBY Elmore [address] [place] [address] PCP - General Family Medicine 10/03/18 12/03/19 documented as of this encounter
--- OUTSIDE RECORDS SUMMARY | 2024-05-26 10:29 | XMS_ITS | Encounter Summary ---
[place] [address] Care Team Providers Care Coiler Name Role Phone Aileen Gonzalez MD Primary Care Provider Reason for Visit * Reason Comments Travel Consult Encounter Details Date Type Department Care Team (Late st Contact Info) Description 03/17/2016 1:45 PM EDT Office [place] [phone] Patricia Parks RN Need for prophylactic vaccination with typhoid-paratyphoid (TAB) vaccine; Need for prophylactic vaccination and inoculation against viral hepatitis; Counseling about travel; Need for immunization against yellow fever Social History Tobacco Use Types Packs/Day Years [...] as of this encounter Progress Notes * Alejo Chun MD - 03/17/2016 1:45 PM EDT I agree with the recommendations of Patricia Parks after review of her note. * Patricia Parks RN - 03/17/2016 1:25 PM EDT Adult Travel Clinic Reason for Visit: Julieta Larkin Mckinley is a 35 y.o. female patient who comes to travel clinic today forpre-travel evaluation, vaccination and traveler's health education. Trip Details: Destination countries [place] from first to last): [facility] [facility] [place]5 weeks with a side trip to [facility] for [facility] for one day. Departure date: 04/24/16 Length of trip: 3.5 weeks Purpose of travel: work / teaching Type of environment: urban Accommodations: hotels Medical History: Medical problems: Patient Active Problem List Diagnosis Code ??? Right hip pain M25.551 ??? s/p R hip labral repair, femoroplasty 04/24/15 ([place]) M25.551 ??? Health care maintenance Z00.00 Current Outpatient Prescriptions Medication Sig Dispense Refill ??? fluocinonide (LIDEX) 0.05 % cream Apply topically as needed. ??? ciprofloxacin (CIPRO) 500 mg Tablet Take 1 tablet by mouth 2 times daily. Take twice a day for fever with diarrhea. 6 tablet 0 ??? atovaquone-proguanil (MALARONE) 250-100 mg Tablet Take 1 tablet by mouth daily. Start 1 day before travel to risk area,daily in risk area and daily for one week after leaving risk area. 31 tablet0 No current facility-administered medications for this visit. Immunosuppression: none History of adverse vaccine reactions: no History of latex, egg or beesting allergy: no or : no Patient advised to carry all medications in carry on luggage. Travel Health and Safety Issues: A discussion of travel health hazards and safety issues was done, including the following topics: traffic-accidents (alcohol, seatbelts), crime, alcohol related issues, sun exposure/heat illness, Schistosomiasis and other fresh water exposures, rabies, HIV infections, Hepatitis and other STD's, control, TB, Health Insurance coverage/[employer]. Discussed food and water precautions and patient handout provided. The following strategies were recommended for the management of traveler's diarrhea according to severity: ?? For treatment of mild diarrhea: hydration and over the counter antidiarrheal recommended. ?? For treatment of diarrhea accompanied by fever or systemic illness: hydration and empiric treatment with antibiotic recommended. A prescription for Ciprofloxacin 500 mg twice daily x 3 days sent to pharmacy. ?? For severe or bloody diarrhea, or diarrhea accompanied by vomiting: patient advised to seek medical treatment. Vector-borne Disease Prevention Discussed insect bite prevention to reduce risk of malaria, dengue, chikungunya and other insect borne illnesses. Handout given. Malaria Risk: Significant risk of malaria on this itinerary. Discussed malaria chemoprophylaxis and possible sideeffects. Prescription for Malarone was given to the patient. Altitude: This trip does not involve high altitude. Immunizations Immunization History Administered Date(s) Administered ??? Hepatitis A Vaccine, Adult 03/17/2016 ??? Pneumococcal Polyvalent 23 02/26/2004 ??? Td, adult 02/26/2004 ??? Tdap Vaccine 11/06/2011 ??? Typhoid Live, Oral 03/17/2016 ??? Yellow Fever Vaccine 03/17/2016 Immunizations given today- yellow fever, oral typhoid and hepatitis A#1. Traveler does not present with immunization record beyond Tdap. She reports that she received all childhood immunizations and had chicken pox disease. She declines influenza today. Rabies- discussed animal avoidance, wound care and need for post-exposure prophylaxis. Discussed pre-vaccination series and declined. Follow-up Recommendations: Traveler will return to PCP for second hepatitis A vaccine in six months. Patient advised to call travel clinic if they return from trip with any illness. Time spent in travel counselin minutes. Vaccine information sheets given. documented in this encounter Plan of Treatment Not on file documented as of this encounter Visit Diagnoses Diagnosis Need for prophylactic vaccination with typhoid-paratyphoid (TAB) vaccine Need for prophylactic vaccination with typhoid-paratyphoid alone (TAB) Need for prophylactic vaccination and inoculation against viral hepatitis Counseling about travel Other specified counseling Need for immunization against yellow fever Need for prophylactic vaccination and inoculation against yellow fever documented in this encounter Care Teams Coiler Relationship Specialty Start Date End Date Aileen Gonzalez MD [address] [place] [address] PCP - General 08/19/10 10/02/18 documented as of this encounter
--- OUTSIDE RECORDS SUMMARY | 2024-05-26 10:29 | XMS_ITS | Encounter Summary ---
Author Organization [facility] Address [address] [place] [address] Care Team Providers Care Loss Prevention Leader Name Role Phone Unavailable Primary Care Provider Unavailabl e Encounter Details Date Type Department Care Team (Late st Contact Info) Description 08/30/2009 Orders Only [facility] Laboratory Services - [facility] ([facility] [address] [place], [place] [address] Aileen Gonzalez MD [address] [place] [address] [place] [address] Social History Tobacco Use Types Packs/Day Years Used Date Smoking Tobacco: Never Assessed Sex and Gender Information Value Date Recorded Sex Assigned at Not on file Gender Identity Not on file Sexual Orientation Not on file documented as of this encounter Plan of Treatment Not on file documented as of this encounter Procedures Procedure Name Priority Date/Time Associated Diagnosis Comments HPV DETECTION, HIGH RISK TYPES Routine 08/30/2009 10:54 EST CYTOPATHOLOGY Routine 08/30/2009 0:00 EST documented in this encounter Results * HUMAN PAPILLOMA VIRUS DNA TEST (08/30/2009 10:54 EST) Specimen Description Cervix, ThinPrep vial [facility] Result Negative for HPV types 16, 18, 31, 33, 35, 39, 45, 51, 52, 56, 58, 59, and 68. [facility] Report Status Final 09/10/2009 [facility] 08/30/2009 10:5 4 EST 09/04/2009 10:54 EST Aileen Gonzalez MD MICROBIOLOGY - GENER AL ORDERABLES [facility] [address] [address] * CYTOPATHOLOGY (08/30/2009 0:00 EST) Pathology Report: CYTOPATHOLOGY REPORT ? Reports generated via electronic interface contain original data; ? however they are lacking the format of the original report. ? Caution should be taken when reading/interpreti ng unformatted reports. ? Name: ? JULIETA SEN ? Accession #: ? [id number] ? : ? 1980 (Age: 29) ??F ?Collect Date: ? 08/30/2009 ? Location: ? [facility] ? Receive Date: ? 09/02/2009 ? Provider: ?AILEEN ARIASAN MD ? Copy to: ? Specimen/Source: ?Pap Test, Cervix/Endocervix, ThinPrep Imaging System ? with manual evaluation ? Last Menstrual Period: ? 11/23/09 ? Menstrual/Pregnanc y Status: ? Post : 9 mo. ? Other: ? HPVDX - HPV testing requested regardless of diagnosis on current ThinPrep Pap ?? test. ? SPECIMEN ADEQUACY ? Satisfactory for Evaluation ? - transformation zone component present ? GENERAL CATEGORIZATION ? Negative for Intraepithelial Lesion or Malignancy ? Document reviewed and electronically signed by: ? Adia Daniel, CT(ASCP) ? Report Date: ??09/03/2009 16:23 ? End of Report ? [facility] 08/30/2009 09/02/2009 Aileen Gonzalez MD PATHOLOGY ORDERABLES [facility] [address] [place] [address] documented in this encounter Visit Diagnoses Not on filedocumented in this encounter
--- OUTSIDE RECORDS SUMMARY | 2024-05-26 10:29 | XMS_ITS | Encounter Summary ---
Author Organization [facility] Address [facility] [place] [address] Care Team Providers Care Farmworker Grain Name Role Phone Aileen Gonzalez MD Primary Care Provider [phone] Encounter Details Date Type Department Care Team (Late st Contact Info) Description 03/20/2015 Orders [place] [address] Miles Landry MD [facility] [place] [address] Right hip pain Social History Tobacco Use Types Packs/Day Years [...] and hip 2 views of 1 hip (05/07/2015 12:57 PM EDT) Anatomical Region Laterality Modality Pelvis, Hip N/A Radiographic Tia ging 05/07/2015 12:5 7 PM EDT Impressions 05/07/2015 1:42 PM EDT IMPRESSION: No change in the appearance of the right hip. Narrative 05/07/2015 1:42 PM EDT EXAMINATION: AP PELVIS AND 2 VIEWS ONE HIP/RIGHT CLINICAL HISTORY: 04/24/15 RIGHT HIP SCOPE *TN* TECHNIQUE: AP pelvis, AP right hip, lateral right hip COMPARISON: March 19, 2015 FINDINGS: Small marginal right acetabular osteophytes are again seen without change. The right hip joint space remains intact. Procedure Note Tam Bacon MD - 05/07/2015 EXAMINATION: AP PELVIS AND 2 VIEWS ONE HIP/RIGHT CLINICAL HISTORY: 04/24/15 RIGHT HIP SCOPE *TN* TECHNIQUE: AP pelvis, AP right hip, lateral right hip COMPARISON: March 19, 2015 FINDINGS: Small marginal right acetabular osteophytes are again seen without change.The right hip joint space remains intact. IMPRESSION IMPRESSION: No change in the appearance of the right hip. Miles Landry MD IMG DX ORDERABLES documented in this encounter Visit Diagnoses Diagnosis Right hip pain Pain in joint, pelvic region and thigh Right hip pain Pain in joint, pelvic region and thigh documented in this encounter Care Teams Farmworker Grain Relationship Specialty Start Date End Date Aileen Gonzalez MD [address] [place] [address] PCP - General 08/19/10 10/02/18 documented as of this encounter
--- OUTSIDE RECORDS SUMMARY | 2024-05-26 10:29 | XMS_ITS | Encounter Summary ---
Author Organization [facility] [place] [address] Care Team Providers Care Margin Clerk Name Role Phone Catarina Min APRN Primary Care Provider [phone] Encounter Details Date Type Department Care Team (Late st Contact Info) Description 06/18/2022 Ancillary Procedure [place] [phone] Danish Schwartz MD [facility] DR [place] [address] Social History Tobacco Use Types Packs/Day Years [...] Procedure Name Priority Date/Time Associated Diagnosis Comments FILM LIBRARY STORAGE ONLY ULTRASOUND STUDY Routine 06/18/2022 12:00 AM EDT documented in this encounter Results * Film Library- Storage Only Ultrasound Study (06/18/2022 12:00 AM EDT) Narrative RAD - 11/26/2023 3:55 PM EST This exam is auto-finalizing. It's purpose is for storage only. Danish Schwartz MD IMG FILM LIBRARY O RDERABLES [facility] [place], [place] documented in this encounter Visit Diagnoses Not on filedocumented in this encounter Care Teams Margin Clerk Relationship Specialty Start Date End Date Catarina Min APRN [address] [place] [address] PCP - General Family Medicine 04/08/21 documented as of this encounter
--- OUTSIDE RECORDS SUMMARY | 2024-05-26 10:29 | XMS_ITS | Encounter Summary ---
[place] [address] Care Team Providers Care Rehabilitation Services Aide Name Role Phone Catarina Min APRN Primary Care Provider [phone] Reason for Referral * Consultation (Routine) - Closed Specialty Diagnoses / Procedures Referred By Contac t Referred To Contact Gynecology Oncology Diagnoses Left ovarian cyst Abnormal uterine and vaginal bleeding, unspecified Uterine leiomyoma, unspecified location Schedule by November 29 China Parks DO [address] [place] [address] [place] [address] [facility] Clerical Manager [address] [place] [phone] Referral ID Status Reason Start Date Expiration Date V isits Requested Visits Authorized [id number] Closed Consult, Test & Treat PCP Updated and/or Approved 10/25/2023 04/23/2024 6 6 Encounter Details Date Type Department Care Team (Late st Contact Info) Description 10/29/2023 Transcribe Orders eDH Incoming Referrals [phone] China Parks DO [address] [place] [address] [address] [place], [place] [phone] Left ovarian cyst; Abnormal uterine and vaginal bleeding, unspecified; Uterine leiomyoma, unspecified location Social History Tobacco Use Types Packs/Day Years [...] as of this encounter Plan of Treatment Scheduled Referrals Name Type Priority Associated Diagnoses Orde r Schedule Referral to Gynecologic Oncology Outpatient Referral Routine Left ovarian cyst Abnormal uterine and vaginal bleeding, unspecified Uterine leiomyoma, unspecified location Ordered: 10/29/2023 documented as of this encounter Visit Diagnoses Diagnosis Left ovarian cyst Other and unspecified ovarian cyst Abnormal uterine and vaginal bleeding, unspecified Uterine leiomyoma, unspecified location documented in this encounter Care Teams Rehabilitation Services Aide Relationship Specialty Start Date End Date YeniCatarina hamm APRN [address] [place] [address] PCP - General Family Medicine 04/08/21 documented as of this encounter
--- OUTSIDE RECORDS SUMMARY | 2024-05-26 10:29 | XMS_ITS | Encounter Summary ---
Author Organization [facility] [place] [address] Care Team Providers Care Para Machine Operator Name Role Phone Catarina Min APRN Primary Care Provider [phone] Encounter Details Date Type Department Care Team (Late st Contact Info) Description 01/05/2023 Ancillary Procedure [place] [phone] Danish Schwartz MD [facility] [place] [address] Social History Tobacco Use Types Packs/Day Years [...] FILM LIBRARY STORAGE ONLY ULTRASOUND STUDY Routine 01/05/2023 12:00 AM EDT documented in this encounter Results * Film Library- Storage Only Ultrasound Study (01/05/2023 12:00 AM EDT) Narrative RAD - 11/26/2023 12:14 PM EST This exam is auto-finalizing. It's purpose is for storage only. Danish Schwartz MD IMG FILM LIBRARY O RDERABLES [facility] [place], [place] documented in this encounter Visit Diagnoses Not on filedocumented in this encounter Care Teams Para Machine Operator Relationship Specialty Start Date End Date Catarina Min APRN [address] [place] [address] PCP - General Family Medicine 04/08/21 documented as of this encounter
--- OUTSIDE RECORDS SUMMARY | 2024-05-26 10:29 | XMS_ITS | Encounter Summary ---
Author Organization [facility] Address [facility] [place] [address] Care Team Providers Care Refinery Operator Gas Plant Name Role Phone Aileen Gonzalez MD Primary Care Provider [phone] Encounter Details Date Type Department Care Team (Late st Contact Info) Description 05/07/2015 12:16 PM EDT - 05/07/2015 11:59 PM EDT Hospital Encounter XRay at [address] [place] [address] Right hip pain Social History Tobacco Use [...] Sig Dispensed Refills Start Date End Date oxyCODONE (ROXICODONE) 5 mg Tablet Take 1-2 tablets by mouth every 4 hours as needed for Pain. 40 tablet 0 04/24/2015 06/18/2015 meloxicam (MOBIC) 15 mg Tablet Take 1 tablet by mouth daily. 30 tablet 0 04/24/2015 06/18/2015 fluocinonide (LIDEX) 0.05 % cream Apply topically as needed. 02/13/2020 rizatriptan (MAXALT-SOLDERER ASSEMBLY REPAIR) 10 mg disintegrating tablet 10/01/2005 12/27/2015 documented as of this encounter Plan of Treatment Not on file documented as of this encounter Procedures Procedure Name Priority Date/Time Associated Diagnosis Comments XR PELVIS AP AND HIP 2 VIEWS OF 1 HIP Routine 05/07/2015 12:57 PM EDT Right hip pain documented in this encounter Results * XR pelvis AP [...] thigh documented in this encounter Care Teams Refinery Operator Gas Plant Relationship Specialty Start Date End Date Aileen Gonzalez MD [address] [place] [address] PCP - General 08/19/10 10/02/18 documented as of this encounter
--- OUTSIDE RECORDS SUMMARY | 2024-05-26 10:29 | XMS_ITS | Encounter Summary ---
Author Organization [facility] Address [address] [place] [address] Care Team Providers Care Pta Name Role Phone Unavailable Primary Care Provider Unavailabl e Encounter Details Date Type Department Care Team (Late st Contact Info) Description 04/12/2008 Before PRISM Converted Visit (Maple) [facility] - Maple conversion [address] [place] [address] [place], [place] [id number] Social History Tobacco Use Types Packs/Day Years Used Date Smoking Tobacco: Never Assessed Sex and Gender Information Value Date Recorded Sex Assigned at Not on file Gender Identity Not on file Sexual Orientation Not on file documented as of this encounter Plan of Treatment Not on file documented as of this encounter Procedures Procedure Name Priority Date/Time Associated Diagnosis Comments CYTOPATHOLOGY Routine 04/12/2008 0:00 EDT documented in this encounter Results * CYTOPATHOLOGY (04/12/2008 0:00 EDT) Pathology Report: CYTOPATHOLOGY REPORT ? Reports generated via electronic interface contain original data; ? however they are lacking the format of the original report. ? Caution should be taken when reading/interpreti ng unformatted reports. ? Name: ? JULIETA SEN ? Accession #: ? [id number] ? : ? 1980 (Age: 27) ??F ?Collect Date: ? 04/12/2008 ? Location: ? [facility] ? Receive Date: ? 04/12/2008 ? Provider: ?AILEEN BRASHER CNM ? Copy to: ? Specimen/Source: ?ThinPrep Pap Test, Cervix/Endocervix, processed on Cytyc ThinPrep Imaging System, with manual evaluation ? Last Menstrual Period: ? Menstrual/Pregnanc y Status: ? SPECIMEN ADEQUACY ? Satisfactory for Evaluation ? - transformation zone component present ? GENERAL CATEGORIZATION ? Negative for Intraepithelial Lesion or Malignancy ? Document reviewed and electronically signed by: ? Ramesh Barahona, CT(ASCP) ? Report Date: ??04/19/2008 12:48 ? End of Report ? [facility] 04/12/2008 04/12/2008 Aileen Brasher CNM PATHOLOGY ORDERABLES Performing Organization Address City/State/[facility] Co de Phone Number [facility] [address] [place] [address] documented in this encounter Visit Diagnoses Not on filedocumented in this encounter
--- OUTSIDE RECORDS SUMMARY | 2024-05-26 10:29 | XMS_ITS | Encounter Summary ---
Author Organization [facility] Address [facility] [place] [address] Care Team Providers Care Center Hole Reamer Name Role Phone Aileen Gonzalez MD Primary Care Provider [phone] Reason for Visit * Reason Comments Right Hip Pain Right Hip Scope, 03/28 06/11 Encounter Details Date Type Department Care Team (Late st Contact Info) Description 08/30/2015 11:30 AM EST Office [place] [address] Miles Landry MD [facility] [place] [address] s/p R hip labral repair, femoroplasty 04/24/15 (Gris) Social History Tobacco Use Types Packs/Day Years [...] Sign Reading Time Taken Comments Blood Pressure 114/75 08/30/2015 11:45 AM EST Pulse 59 08/30/2015 11:45 AM EST Temperature - - Respiratory Rate - - Oxygen Saturation - - Inhaled Oxygen Concentration - - Weight 66.5 kg (146 lb 9.6 oz) 08/30/2015 11:45 AM EST fully clothed Height 172.7 cm (5' 8) 08/30/2015 11:4 5 AM EST verbal Body Mass Index 22.29 08/30/2015 11:45 AM EST documented in this encounter Progress Notes * Romaine Chamorro PA - 08/30/2015 12:09 PM EST Case Date: 04/24/2015 Surgeon: Surgeon(s) and Role: * Miles Landry MD - Primary Procedure(s): ARTHROSCOPY HIP W/LABRAL REPAIR ARTHROSCOPY HIP W/Limited Femoroplasty ARTHROSCOPY HIP W/Capsular repair/imbrication. HPI: 35 yo female returns 4 months from arthroscopy. She has made progress, albeit slower in the last couple months. There is minimal discomfort at this point; activity progression is painful but sheis doing more. ROM has improved. Strength is improving. She continuing to work with PT. She has hadno injuries. PE: Ambulatory without assist or antalgia. When supine, no atrophy, able to straight leg raise without lag or discomfort. Passive ROM well tolerated mild discomfort; symmetric to the contralateral side. No pain or weakness with resisted ROM. Assessment: S/P Right hip arthroscopy Plan: She has done well. We discussed her progress. She can continue progress toward sport specificgoals. I emphasied the importance of continued stretching and strengthening efforts. We'll give alan running progression. We'll see her again as needed documented in this encounter Plan of Treatment Not on file documented as of this encounter Visit Diagnoses Diagnosis s/p R hip labral repair, femoroplasty 04/24/15 (Gris) Pain in joint, pelvic region and thigh documented in this encounter Care Teams Center Hole Reamer Relationship Specialty Start Date End Date Aileen Gonzalez MD [address] [place] [address] PCP - General 08/19/10 10/02/18 documented as of this encounter
--- OUTSIDE RECORDS SUMMARY | 2024-05-26 10:29 | XMS_ITS | Encounter Summary ---
Author Organization [facility] Address [facility] [place] [address] Care Team Providers Care Jigsaw Operator Name Role Phone Aileen Gonzalez MD Primary Care Provider [phone] Reason for Visit * Reason Comments Right Hip Pain Right Hip Scope 04/24 Encounter Details Date Type Department Care Team (Late st Contact Info) Description 05/07/2015 1:15 PM EDT Office [place] [address] Miles Landry MD [facility] DR [place] [address] s/p R hip labral repair, femoroplasty 04/24/15 [...] Sign Reading Time Taken Comments Blood Pressure 99/65 05/07/2015 1:11 PM EDT Pulse 61 05/07/2015 1:11 PM EDT Temperature 36.9 ??C (98.4 ??F) 05/07/2015 1:11 PM ED T Respiratory Rate - - Oxygen Saturation - - Inhaled Oxygen Concentration - - Weight 66.2 kg (146 lb) 05/07/2015 1:11 PM EDT v erbal Height 172.7 cm (5' 8) 05/07/2015 1:11 PM EDT v erbal Body Mass Index 22.2 05/07/2015 1:11 PM EDT documented in this encounter Progress Notes * Miles Landry MD - 05/07/2015 2:12 PM EDT 04/24/2015 Postoperative diagnosis: Labral tear right hip with anterior CEA of 24 and mild BART. Procedure(s): ARTHROSCOPY HIP W/LABRAL REPAIR ARTHROSCOPY HIP W/Limited Femoroplasty ARTHROSCOPY HIP W/Capsular repair/imbrication Two weeks status post hip arthroscopy on the right. Julieta is doing reasonably well. She has had a fair amount of pain and anxiety from surgery. She has been taking oxycodone at night to help with sleep which had been quite poor up until last weekend. She describes some lateral pain and numbness which is resolving, continued groin tightness. She has been anxious about what position she should or should not be in, worried that she might cause harm to the surgical repair. Exam: incisions are nicely healed. She is a bit tentative with motion but when she relaxes I can flex her hip to 90 degrees and gently internally and externally rotate. She does get groin pain at about 20 degrees of internal rotation. Imaging: X-rays are reviewed. They show the limited femoroplasty, no complications. Impression: A 34-year-old female two weeks status post hip arthroscopy on the right with labral repair, capsular plication for a large labral tear and a mildly dysplastic joint. Plan: She will progress her weightbearing to full over the next few weeks, wean off of crutches when her gait is stable. We talked about pool therapy which I think would be very helpful for her, and we will plan to see her back in six weeks' time. documented in this encounter Plan of Treatment Not on file documented as of this encounter Visit Diagnoses Diagnosis s/p R hip labral repair, femoroplasty 04/24/15 (Gris) Pain in joint, pelvic region and thigh documented in this encounter Care Teams Jigsaw Operator Relationship Specialty Start Date End Date Aileen Gonzalez MD [address] [place] [address] PCP - General 08/19/10 10/02/18 documented as of this encounter
--- OUTSIDE RECORDS SUMMARY | 2024-05-26 10:29 | XMS_ITS | Encounter Summary ---
Author Organization [facility] [place] [address] Care Team Providers Care Management Instructor Name Role Phone Catarina Min APRN Primary Care Provider [phone] Encounter Details Date Type Department Care Team (Late st Contact Info) Description 10/07/2018 5:05 PM EST Ancillary [place] [address] Alexis Dumont MD [facility] DR ORTHOPA[place] [address] Social History Tobacco Use Types Packs/Day Years [...] Associated Diagnosis Comments FILM LIBRARY STORAGE ONLY MR WRIST Routine 10/07/2018 5:04 PM EST documented in this encounter Results * Film Library- Storage Only MR Wrist (10/07/2018 5:04 PM EST) Narrative RAD - 10/07/2018 5:04 PM EST This exam is for storage only and is auto-finalizing. Alexis Dumont MD G FILM LIBRARY ORD ERABLES [facility] [place], [place] documented in this encounter Visit Diagnoses Not on filedocumented in this encounter Care Teams Management Instructor Relationship Specialty Start Date End Date Catarina Min APRN [address] [place] [address] PCP - General Family Medicine 10/03/18 12/03/19 documented as of this encounter
--- OUTSIDE RECORDS SUMMARY | 2024-05-26 10:29 | XMS_ITS | Encounter Summary ---
Author Organization [facility] Address [facility] [place] [address] Care Team Providers Care Half Section Ironer Name Role Phone Aileen Gonzalez MD Primary Care Provider [phone] Encounter Details Date Type Department Care Team (Latest Contact Info) Description 02/16/2014 1:48 PM EDT - 02/16/2014 11:59 PM EDT Hospital Encounter XRay at [address] [place] [address] CLINIC, Miles Gonzalez MD [facility] [address] Right hip pain Discharge Disposition: Home Social History Tobacco [...] Sig Dispensed Refills Start Date End Date fluocinonide (LIDEX) 0.05 % cream Apply topically as needed. 02/13/2020 rizatriptan (MAXALT-[employer]) 10 mg disintegrating tablet 10/01/2005 12/27/2015 documented as of this encounter Procedure Notes * Rhys Fink MD - 02/16/2014 3:16 PM EDTProcedure(s): ARTHROCENTESIS,DRAIN/INJECT JOINT/BURSA Pre-Procedure Diagnose(s): Pain in right hip Julieta Larkin Mckinley [id number] HISTORY: right hip Pain Right hip INJECTION UNDER FLUOROSCOPY TECHNIQUE: After an extensive conversation with the patient regarding risks and benefits, oral and written consent were obtained. The patient was placed supine on the fluoroscopic table. The right hip was prepped and draped in the usual aseptic manner. 1% Lidocaine was used to achieve local anesthesia. Under fluoroscopic guidance, 22 gauge spinal needle was advanced into the joint space. Small amount of air was injected to the document needle placement. A mixture of Ropivacaine and triamcinolone acetonide was injected. All needles removed at end of procedure. FINDINGS: 1. Small amount of injected air in the right hip joint space. 2. PAIN SCORE: Before: 2 /10 After: 0 /10 Impingement test was positive at 25 degrees of rotation before injection and free of pain after theinjection. 3. Medications: Lidocaine 1% - <5 ml, for subcutaneous anesthesia Ropivacaine HCL 0.5% - 3 ml, Triamciolone Acetonide - 30 mg, Fluoroscopy time: 17 sec COMPLICATIONS: None immediate. POST-PROCEDURE CARE: Information regarding monitoring of infection, post- procedural pain and management of steroid flare were reviewed with patient. IMPRESSION: Uneventful right hip injection under fluoroscopy. Attending: RHYS FINK MD documented in this encounter Plan of Treatment Not on file documented as of this encounter Procedures Procedure Name Priority Date/Time Associated Diagnosis Comments XR FLUORO INJECTION FL DRAIN LARGE JT Routine 02/16/2014 3:07 PM EDT Right hip pain documented in this encounter Results * XR Fluoro injection FL drain large JT (02/16/2014 3:07 PM EDT) Anatomical Region Laterality Modality N/A Radiographic Tia ging 02/16/2014 3:07 PM EDT Impressions 02/20/2014 4:18 PM EDT IMPRESSION: Uneventful right hip injection under fluoroscopy. ?? Attending: RHYS FINK MD Narrative 02/20/2014 4:18 PM EDT Julieta Tra[place] Mckinley [id number] ?? HISTORY: right hip Pain ?? Right hip INJECTION UNDER FLUOROSCOPY ?? TECHNIQUE: After an extensive conversation with the patient regarding risks and benefits, oral and written consent were obtained. The patient was placed supine on the fluoroscopic table. The right hip was prepped and draped in the usual aseptic manner. 1% Lidocaine was used to achieve local anesthesia. Under fluoroscopic guidance, 22 gauge spinal needle was advanced into the joint space. Small amount of air was injected to the document needle placement. A mixture of Ropivacaine and triamcinolone acetonide was injected. All needles removed at end of procedure. ?? FINDINGS: ?? 1. Small amount of injected air in the right hip joint space. ?? 2. PAIN SCORE: ?? Before: 2 /10 ?? After: 0 /10 ?? Impingement test was positive at 25 degrees of rotation before injection and free of pain after the injection. ?? 3. Medications: ?? Lidocaine 1% - <5 ml, for subcutaneous anesthesia ?? Ropivacaine HCL 0.5% - 3 ml, ?? Triamciolone Acetonide - 30 mg, ?? Fluoroscopy time: 17 sec ?? COMPLICATIONS: None immediate. ?? POST-PROCEDURE CARE: Information regarding monitoring of infection, post- procedural pain and management of steroid flare were reviewed with patient. ?? Procedure Note Ryhs Fink MD - 02/20/2014 Julieta Larkin Mckinley [id number] HISTORY: right hip Pain Right hip INJECTION UNDER FLUOROSCOPY TECHNIQUE: After an extensive conversation with the patient regardingrisks and benefits, oral and written consent were obtained. The patient was placedsupine on the fluoroscopic table. The right hip was prepped and draped in theusual aseptic manner. 1% Lidocaine was used to achieve local anesthesia. Under fluoroscopic guidance, 22 gauge spinal needle was advanced into the joint space. Small amount of air was injected to the document needle placement.A mixture of Ropivacaine and triamcinolone acetonide was injected. Allneedles removed at end of procedure. FINDINGS: 1. Small amount of injected air in the right hip joint space. 2. PAIN SCORE: Before: 2 /10 After: 0 /10 Impingement test was positive at 25 degrees of rotation before injectionand free of pain after the injection. 3. Medications: Lidocaine 1% - <5 ml, for subcutaneous anesthesia Ropivacaine HCL 0.5% - 3 ml, Triamciolone Acetonide - 30 mg, Fluoroscopy time: 17 sec COMPLICATIONS: None immediate. POST-PROCEDURE CARE: Information regarding monitoring of infection, post- procedural pain and management of steroid flare were reviewed withpatient. IMPRESSION IMPRESSION: Uneventful right hip injection under fluoroscopy. Attending: RHYS FINK MD Miles Landry MD IMG FLUORO ORDERABLE S documented in this encounter Visit Diagnoses Diagnosis Right hip pain Pain in joint, pelvic region and thigh documented in this encounter Administered Medications Inactive Administered Medications - up to 3 most recent administrations Medication Order MAR Action Action Date Dose Rate Site ROpivacaine (PF) 5 mg/mL (0.5 %) 4 mL with triamcinolone acetonide 10 mg injection Intra-articular, ONCE, 1 dose, On Wed02/16/14 at 1515 Given 02/16/2014 3:15 PM EDT documented in this encounter Care Teams Half Section Ironer Relationship Specialty Start Date End Date Aileen Gonzalez MD [address] [place] [address] PCP - General 08/19/10 10/02/18 documented as of this encounter
--- OUTSIDE RECORDS SUMMARY | 2024-05-26 10:29 | XMS_ITS | Encounter Summary ---
Author Organization [facility] Address [facility] [place] [address] Care Team Providers Care Cash Controller Name Role Phone Aileen Gonzalez MD Primary Care Provider [phone] Encounter Details Date Type Department Care Team (Latest Contact Info) Description 07/11/2014 2:11 PM EDT - 07/11/2014 11:59 PM EDT Hospital Encounter XRay at [address] [place] [address] CLINIC, Miles Gonzalez MD [facility] [place] [address] Pain in right hip Discharge Disposition: Home Social History Tobacco Use [...] cream Apply topically as needed. 02/13/2020 rizatriptan (MAXALT[employer]) 10 mg disintegrating tablet 10/01/2005 12/27/2015 documented as of this encounter Procedure Notes * Maritza Angelo MD - 07/11/2014 4:40 PM EDTProcedure(s): ARTHROCENTESIS,DRAIN/INJECT JOINT/BURSA Pre-Procedure Diagnose(s): Labral tear of hip, degenerative Post-Procedure Diagnose(s): Labral tear of hip, degenerative Julieta Larkin Mckin[place] [id number] HISTORY: right hip Pain ACC: [id number] Right hip INJECTION UNDER FLUOROSCOPY TECHNIQUE: After an extensive conversation with the patient regarding risks and benefits, oral and written consent were obtained. A pre- procedural time-out was performed as per [facility] protocol. The patient was placed supine on the [...] hip joint space. 2. PAIN SCORE: Before: 7 /10 After: 5 /10 3. Fluoroscopy time: 4 sec 4. Medications: Lidocaine 1% - <5 ml, for subcutaneous anesthesia Ropivacaine HCL 0.5% - 3 ml, Triamciolone Acetonide - 30 mg, COMPLICATIONS: None immediate. POST-PROCEDURE CARE: Information regarding monitor of infection, post- procedural pain and management of steroid flare were reviewed with patient. IMPRESSION: Uneventful right hip injection under fluoroscopy. Resident/Fellow: Willy Attending: Dr. Angelo ATTENDING ATTESTATION I, Maritza Angelo MD MS, supervised the resident/fellow during the bernal and critical portions of theprocedure and was immediately available throughout. documented in this encounter Plan of Treatment Not on file documented as of this encounter Procedures Procedure Name Priority Date/Time Associated Diagnosis Comments XR FLUORO INJECTION FL DRAIN LARGE JT Routine 07/11/2014 2:42 PM EDT Pain in right hip documented in this encounter Results * XR Fluoro injection FL drain large JT (07/11/2014 2:42 PM EDT) Anatomical Region Laterality Modality N/A Radiographic Tia ging 07/11/2014 2:42 PM EDT Narrative 07/12/2014 4:36 PM EDT ?Procedures ?; ?? {CR} ?1. ?? ARTHROCENTESIS,DRAIN/INJECT JOINT/BURSA [[id number]] ?; ?? {CR} ? ; ?? {CR} ? ; ? Julieta ?? D Mckinley [id number] ?HISTORY: ?? right hip Pain ? ACC: ?? [id number] ?Right ?? hip INJECTION UNDER FLUOROSCOPY ?TECHNIQUE: ?? After an extensive conversation with the patient regarding risks and ?? benefits, oral and written consent were obtained. A pre- procedural time-out ?? was performed as per [facility] protocol. ?The ?? patient was placed supine on the fluoroscopic table. The right hip was ?? prepped and draped in the usual aseptic manner. 1% Lidocaine was used to ?? achieve local anesthesia. Under fluoroscopic guidance, 22 gauge spinal needle ?? was advanced into the joint space. Small amount of air was injected to the ?? document needle placement. A mixture of Ropivacaine and triamcinolone ?? acetonide was injected. All needles removed at end of procedure. ?FINDINGS: ?1. ?? Small amount of injected air in the right hip joint space. ?2. ?? PAIN SCORE: ?Before: ?? 7 /10 ?After: ?? 5 /10 ?3. ?? Fluoroscopy time: 4 sec ?4. ?? Medications: ?Lidocaine ?? 1% - <5 ml, for subcutaneous anesthesia ?Ropivacaine ?? HCL 0.5% - 3 ml, ?Triamciolone ?? Acetonide - 30 mg, ?COMPLICATIONS: ?? None immediate. ?POST-PROCEDURE ?? CARE: Information regarding monitor of infection, post- ?? procedural pain and management of steroid flare were reviewed with patient. ?IMPRESSION: ?? Uneventful right hip injection under fluoroscopy. ?Resident/Fellow: ?? Willy ? Attending: ?? Dr. Angelo ?ATTENDING ?? ATTESTATION ?I, ?? Maritza Angelo MD MS, supervised the resident/fellow during the bernal and ?? critical portions of the procedure and was immediately available throughout. ?; ?? {CR} ? Film and interpretation reviewed by the attending Procedure Note Maritza Angelo MD - 07/12/2014 Procedures ; {CR} 1. ARTHROCENTESIS,DRAIN/INJECT JOINT/BURSA [[id number]] ; {CR} ; {CR} ; Julieta Larkin Mckinley [id number] HISTORY: right hipPain ACC: [id number] Right hip INJECTION UNDER FLUOROSCOPY TECHNIQUE:After an extensive conversation with the patient regarding risks and benefits,oral and written consent were obtained. A pre- procedural time-out wasperformed as per [facility] protocol. The patient was placed supine on thefluoroscopic table. The right hip was prepped and draped in the usual aseptic manner.1% Lidocaine was used to achieve local anesthesia. Under fluoroscopicguidance, 22 gauge spinal needle was advanced into the joint space. Small amountof air was injected to the document needle placement. A mixture of Ropivacaineand triamcinolone acetonide was injected. All needles removed at end of procedure. FINDINGS: 1. Small amount of injected air in the righthip joint space. 2. PAIN SCORE: Before: 7 /10 After: 5 103. Fluoroscopy time: 4 sec 4. Medications: Lidocaine 1% - <5 ml,for subcutaneous anesthesia Ropivacaine HCL 0.5% - 3 ml,Triamciolone Acetonide - 30 mg, COMPLICATIONS: None immediate. POST-PROCEDURE CARE: Information regarding monitor of infection, post- procedural painand management of steroid flare were reviewed with patient. IMPRESSION: Uneventful right hip injection under fluoroscopy. Resident/Fellow:Willy Attending: Dr. Angelo ATTENDING ATTESTATION I, Maritza Angelo MD MS, supervised the resident/fellowduring the bernal and critical portions of the procedure and was immediatelyavailable throughout. ; {CR} Film and interpretation reviewed by the attending Miles Landry MD IMG FLUORO ORDERABLE S documented in this encounter Visit Diagnoses Diagnosis Pain in right hip Pain in joint, pelvic region and thigh documented in this encounter Administered Medications Inactive Administered Medications - up to 3 most recent administrations Medication Order MAR Action Action Date Dose Rate Site ROpivacaine (PF) 5 mg/mL (0.5 %) 4 mL with triamcinolone acetonide 40 mg injection Intra-articular, ONCE, 1 dose, On Wed07/11/14 at 1500 Given 07/11/2014 3:00 PM EDT documented in this encounter Care Teams Cash Controller Relationship Specialty Start Date End Date Aileen Gonzalez MD [address] [place] [address] PCP - General 08/19/10 10/02/18 documented as of this encounter
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
--- OUTSIDE RECORDS SUMMARY | 2024-05-26 10:29 | XMS_ITS | Encounter Summary ---
Author Organization [facility] Address [facility] [place] [address] Care Team Providers Care Commercial Credit Portfolio Manager Name Role Phone Aileen Gonzalez MD Primary Care Provider [phone] Reason for Visit * Reason Onset Date Comments Injections 07/03/2014 Encounter Details Date Type Department Care Team (Late st Contact Info) Description 07/03/2014 Telephone [place] [id number] Miles Landry MD [facility] [place] [address] Injections Social History Tobacco Use Types Packs/Day Years [...] encounter Miscellaneous Notes * Telephone Encounter - Olya Gallegos - 07/04/2014 1:02 PM EDT Patient is scheduled for 07/11/2014 @ 2:00 * Telephone Encounter - Viridiana Bell - 07/04/2014 9:34 AM EDT Left msg for patient to call and schedule injection. * Telephone Encounter - Carolee Fany Kofi - 07/03/2014 4:27 PM EDT Patient calls requesting R hip injection. Her previous injection was in January and gave her good relief until the last week or so. She asked if she should return to Dr. Landry to discuss surgery again at any point. I told her that this was up to her, but if it got to be September 2014 or later and she's finding she needs another injection it may be beneficial to return to Dr. Landry for another evaluationand discuss if surgery is something she might be interested in at that time. We would also want newxrays at that point as her most recent xrays are Jul 2013. She expressed understanding and was veryappreciative of the call. Orders placed for injection. Message routed to secretaries for injection scheduling. Please call patient before 9am or after 1:30pm as she will be in class otherwise. documented in this encounter Plan of Treatment Not on file documented as of this encounter Results * XR Fluoro injection FL drain large JT (07/11/2014 2:42 PM EDT) Anatomical Region Laterality Modality N/A Radiographic Tia ging 07/11/2014 2:42 PM EDT Narrative 07/12/2014 4:36 PM EDT ?Procedures ?; ?? {CR} ?1. ?? ARTHROCENTESIS,DRAIN/INJECT JOINT/BURSA [[id number]] ?; ?? {CR} ? ; ?? {CR} ? ; ? Julieta ?? Trae Mckinley [id number] ?HISTORY: ?? right hip Pain ? ACC: ?? [id number] ?Right ?? hip INJECTION UNDER FLUOROSCOPY ?TECHNIQUE: ?? After an extensive conversation with the patient regarding risks and ?? benefits, oral and written consent were obtained. A pre- procedural time-out ?? was performed as per [facility] protocol. ?The ?? patient was placed supine [...] joint space. ?2. ?? PAIN SCORE: ?Before: ?After: ?3. ?? Fluoroscopy time: 4 sec ?4. [...] 07/12/2014 Procedures ; {CR} 1. ARTHROCENTESIS,DRAIN/INJECT JOINT/BURSA [[id number]] ; {CR} ; {CR} ; Julieta Larkin Mckinley [id number] HISTORY: right hipPain ACC: [id number] Right hip INJECTION UNDER FLUOROSCOPY TECHNIQUE:After an extensive conversation with the patient regarding risks and benefits,oral and written consent were obtained. A pre- procedural time-out wasperformed as per [facility] protocol. The patient was placed supine on [...] PAIN SCORE: Before: 7 /10 After: 5 /103. Fluoroscopy time: 4 sec 4. Medications: Lidocaine [...] encounter Visit Diagnoses Diagnosis Pain in right hip- Primary Pain in joint, pelvic region and thigh Pain in right hip Pain in joint, pelvic region and thigh documented in this encounter Care Teams Commercial Credit Portfolio Manager Relationship Specialty Start Date End Date Aileen Gonzalez MD [address] [place] [address] PCP - General 08/19/10 10/02/18 documented as of this encounter
--- OUTSIDE RECORDS SUMMARY | 2024-05-26 10:29 | XMS_ITS | Encounter Summary ---
Author Organization [facility] [place] [address] Care Team Providers Care Lime Vat Tender Name Role Phone Catarina Min APRN Primary Care Provider Reason for Referral * Occupational Therapy (Routine) - Closed Specialty Diagnoses / Procedures Referred By Contac t Referred To Contact Occupational Therapy Diagnoses De Quervain's disease (tenosynovitis) Kendra Carlin PA [facility] [place] [address] [facility] [address] [place] [address] Referral ID Status Reason Start Date Expiration Date V isits Requested Visits Authorized [id number] Closed Evaluate and Treat 10/14/2018 10/14/2019 1 1 Reason for Visit * Reason Comments Right Hand Pain XR RIGHT HAND PAIN * Consultation (Routine) - Closed Specialty Diagnoses / Procedures Referred By Contac t Referred To Contact Orthopaedics Diagnoses RIGHT WRIST PAIN Catarina Min APRN [address] [place] [address] [facility] [address] [place] [phone] Referral ID Status Reason Start Date Expiration Date V isits Requested Visits Authorized [id number] Closed Consult, Test & Treat Connection Center 10/03/2018 10/03/2019 1 1 Encounter Details Date Type Department Care Team (Late st Contact Info) Description 10/14/2018 10:00 AM EST Office [place] [address] ReiAdia PA [facility] [place] [address] De Quervain's disease (tenosynovitis) (Primary Dx); Ganglion cyst Social History Tobacco Use Types Packs/Day Years [...] Sign Reading Time Taken Comments Blood Pressure 110/70 10/14/2018 9:46 AM EST Pulse 66 10/14/2018 9:46 AM EST Temperature - - Respiratory Rate - - Oxygen Saturation - - Inhaled Oxygen Concentration - - Weight 64.1 kg (141 lb 6.4 oz) 10/14/2018 9:46 A M EST measured Height 170 cm (5' 6.93) 10/14/2018 9:46 AM EST measured Body Mass Index 22.19 10/14/2018 9:46 AM EST documented in this encounter Progress Notes * Rei, RAMOS Estrella - 10/14/2018 10:00 AM EST PATIENT NAME: Julieta Sen AGE: 38 y.o. MR#: [id number] DATE OF VISIT: 10/14/2018 DATE OF INJURY/ONSET: chronic, worsening over the past 6 months. STAFF: Dr. Dumont CHIEF COMPLAINT: right hand pain HISTORY OF PRESENT ILLNESS: Ms. Sen is a right hand dominant 38 y.o. female who comes into clinic today for evaluation of the right hand pain. She has 3 different complaints. First, she notices some pain at the base of her thumb into lateral wrist or with certain movements. She reports that thismakes it difficult to open jars. She also notes a bump on the dorsum of her hand which moves when she flexes or extends her index finger. This bump can be painful if she applies direct pressure. Ithas not fluctuated in size. Finally, she reports occasional pain in the lateral aspect of her ring finger with forceful lateral movements such as catching it on a towel when drying after the shower. She reports a history of distal radius fracture treated with casting when she was about 9. She denies any surgeries or other significant injury to the hand or wrist. She has tried bracing in the past, but has not worn them consistently. Ibuprofen provides some intermittent relief. She has not triedinjections. She has seen providers in the past for these issues and hand pain after mountain bikingbut prior MRI and x-ray have been negative for any injury. Medications and Allergies were reviewed in eD-H PAST MEDICAL HX: Past Medical History: Diagnosis Date ??? Allergy ??? Chronic pain ??? Headache(784.0) ??? Heart disorder ??? Mental or behavioral problem ??? Skin disorder PAST SURGICAL HX: Past Surgical History: Procedure Laterality Date ??? PRO ARTHROSCOPY HIP W/LABRAL REPAIR Right 04/24/2015 ARTHROSCOPY HIP W/LABRAL REPAIR performed by Miles Landry MD at [facility] SOCIAL HX: Social History Occupational History ??? Not on file Tobacco Use ??? Smoking status: Never Smoker ??? Smokeless tobacco: Never Used Substance and Sexual Activity ??? Alcohol use: Yes Types: 1 Glasses of wine per week ??? Drug use: No ??? Sexual activity: Not on file Comment: had vasectomy Activities: mountain biking, teaching Ambulatory aids: none ROS: Pertinent items are noted in HPI. General Health, Prior Treatments, PreExisting Condition, Health Habits, About You 10/14/2018 PROMIS-10 General Health Excellent PROMIS-10 Quality of Life Excellent PROMIS-10 Physical Health Excellent PROMIS-10 Mental Health Very Good PROMIS-10 Social Activity Excellent PROMIS-10 Everyday Activities Completely PROMIS-10 Pain 1 PROMIS-10 Fatigue Severe PROMIS-10 Social Roles Excellent PROMIS-10 Anxious or Depressed Sometimes PROMIS PHYSICAL SCORE (range 16-68) 50.8 PROMIS MENTAL SCORE (range 21-68) 56 Treatments Tried Brace, Over the counter anti-inflammatory drugs (e.g Advil, Aspirin, Aleve) Alzheimers or dementia No Cirrohosis or liver disease No HIV/AIDS No Pain in more than one joint in legs No Back or neck pain No Heart attack No Heart failure No Unclog/bypass leg arteries No Stroke, blood clot, TIA No Asthma No Emphysema, chronic bronchities, or COPD No Stomach ulcers/peptic ulcer disease No Diabetes No Poor kidney function No Rheumatic condtions No Cancer No Weight (lbs) 142 Height (feet) 5 feet Height (Inches) 7 BMI 22.23 (Normal) Ever used tobacco products No Ever used alcoholic beverages Yes Alcohol frequency Weekly WHO - Alcohol Advice 4 (You are at risk of health and other problems from your current pattern of alcohol use.) Live Alone No Marital situation Schooling More than 4 - year college Combined Household Income $75,000 or more # People Supported 4 Kiswahili, , No, not Kiswahili// Race White Health Literacy Extremely Currently working Yes Current job situation Part-time for other reasons [facility] [employer] Response 12/27/2015 iHOT12 Total Score 86.66 No flowsheet data found. PHYSICAL EXAM: Ms. Sen is a 38 y.o. female who is alert, appears stated age and cooperative. Inspection: Hand with no obvious swelling, deformity. Small mass, approximately 3mm round, visible on dorsum of hand, along extensor tendon, most prominent with full flexion of the index finger. No other masses noted. Palpation: Extensor mass is mildly tender to direct palpation. It is soft and mobile. No other tenderness to palpation throughout hand. No palpable deformity. ROM/Strength: Full, active ROM of wrist, digits without pain. APB 5/5. Strong learning and development assistant strength. Orthopedic testing: Positive Finklestein's test. Negative [facility] grind test of thumb. Ring finger PIP and DIP stable to varus and valgus stress. Neurovascular: Sensation intact to light touch throughout hand, digits. Brisk capillary refill. DIAGNOSTIC STUDIES: X-rays from today were reviewed. They reveal no acute fracture, dislocation or bony anomalies. There are small osteophytes at the basal joint, though joint space appears preserved. No significant arthritis. Prior MRI was reviewed, which demonstrated no significant findings. ASSESSMENT: Ms. Sen is a 38 yo female with multiple hand complaints possibly consistent with DeQuervain's, ganglion cyst and collateral ligament strain. PLAN: I reviewed Ms. Sen's imaging and exam findings with her. We first discussed the pain at the base of the thumb. We discussed that she does have some small osteophytes at the basal joint, but well-maintained joint spaces. We discussed that the pain that she is describing could be consistent with DeQuervain's First line treatment for this is bracing and NSAID use. She agrees and will see [facility] today for splint fabrication. We discussed that if she does not see symptoms improvement over the next 4-6 weeks we may consider DeQuervains injection versus basal joint injection. Regarding the mass on the dorsum of her hand we discussed that she may have a small ganglion cyst. We di scussed that these are not uncommon and generally no treatment is indicated. The mass is not bothersome unless she accidentally applies direct pressure. We discussed that we could consider further workup if the mass grew, became painful or interfered with activity. She is comfortable watching and waiting. Regarding the ring finger, we discussed that she may be jarring or catching the finger, causing her intermittent sharp pain. We also discussed the role of the collateral ligaments in stabilizing the finger. She is stable on exam and is unable to reproduce her pain. We discussed that she may have strained that collateral ligament at some point, particularly as she is active with mountain biking. We discussed that she could try using juan straps or coban wrapping for activities which are more prone to causing pain. She agrees and would like to try this. Supplies were provided. She was offered follow up in 6 weeks to reassess her thumb pain, but she prefers to call if she is having trouble. She will return for follow up on an as needed basis. The patient understands to contact us if they have any other questions or concerns. RAMOS Luna The above documentation was completed using [employer] voice recognition software. documented in this encounter Plan of Treatment Scheduled Referrals Name Type Priority Associated Diagnoses Order Schedule Referral to Occupational Therapy Outpatient Referral Routine De Quervain's disease (tenosynovitis) Ordered: 10/14/2018 documented as of this encounter Visit Diagnoses Diagnosis De Quervain's disease (tenosynovitis)- Primary Radial styloid tenosynovitis Ganglion cyst Ganglion, unspecified documented in this encounter Care Teams Lime Vat Tender Relationship Specialty Start Date End Date Catarina Min APRN [address] [place] [address] PCP - General Family Medicine 10/03/18 12/03/19 documented as of this encounter
--- OUTSIDE RECORDS SUMMARY | 2024-05-26 10:29 | XMS_ITS | Encounter Summary ---
Author Organization [facility] [place] [address] [address] Care Team Providers Care Dust Operator Name Role Phone Catarina Min APRN Primary Care Provider [phone] Encounter Details Date Type Department Care Team (Late st Contact Info) Description 10/05/2022 Ancillary Procedure [place] [id number] Danish Schwartz MD [facility] [place] [address] Social History Tobacco Use Types Packs/Day Years [...] FILM LIBRARY STORAGE ONLY ULTRASOUND STUDY Routine 10/05/2022 12:00 AM EST documented in this encounter Results * Film Library- Storage Only Ultrasound Study (10/05/2022 12:00 AM EST) Narrative RAD - 11/26/2023 12:15 PM EST This exam is auto-finalizing. It's purpose is for storage only. Danish Schwartz MD IMG FILM LIBRARY O RDERABLES [facility] [place], [place] documented in this encounter Visit Diagnoses Not on filedocumented in this encounter Care Teams Dust Operator Relationship Specialty Start Date End Date Catarina Min APRN [address] [place] [address] PCP - General Family Medicine 04/08/21 documented as of this encounter
--- OUTSIDE RECORDS SUMMARY | 2024-05-26 10:29 | XMS_ITS | Encounter Summary ---
Author Organization [facility] Address [facility] [place] [address] Care Team Providers Care Plastic Fixture Builder Name Role Phone Aileen Gonzalez MD Primary Care Provider [phone] Reason for Visit * Reason Onset Date Comments Post Procedure Call 04/25/2015 Encounter Details Date Type Department Care Team (Late st Contact Info) Description 04/25/2015 Telephone [place] [phone] Miles Landry MD [facility] [place] [address] Post Procedure Call Social History Tobacco Use Types Packs/Day Years [...] encounter Miscellaneous Notes * Telephone Encounter - Fany Zarco Kofi - 04/25/2015 4:16 PM EDT Post Procedure Visit for Hip Arthroscopy - by phone Learning Needs Assessment Reviewed: Yes Procedure: Case Date: 04/24/2015 Surgeon: Surgeon(s) and Role: * Miles Landry MD - Primary * Idris Oswald MD - Resident-Surgeon Simón Preoperative diagnosis: Labral tear right hip with anterior CEA of 24 Postoperative diagnosis: Labral tear right hip with anterior CEA of 24 and mild BART. Procedure(s): ARTHROSCOPY HIP W/LABRAL REPAIR ARTHROSCOPY HIP W/Limited Femoroplasty ARTHROSCOPY HIP W/Capsular repair/imbrication. Wound/Pain Assessment: Patient is 1 days s/p right hip arthroscopy. She will remove bandage tmw. Patient educated on signsof infection. Patient informed that her sutures will be removed at the next visit. Patient rates their pain as 4/10. She is currently taking her pain medication as prescribed, 1-2 tabs q4-6hrs depending on her pain level. Patient is to continue aspirin 325mg BID until their 2 week f/u visit. Bowel movement since discharge?: no Passed gas since discharge?: yes Difficulty urinating?: no Numbness/Tingling: yes If yes, characterization: loss of sensation and moderate; [facility] Inst[facility]/HEP Instruction: Patient will be attending physical therapy at [facility] with Jose Mcgill. Their first visit is scheduled for Mon 04/29. The following exercises were reviewed with the patient and their family member in pre op: 1) PROM Hip circumduction, 70 degrees hip flexion RESTRICTIONS FOR CAPSULAR PLICATION: NO extension or ER past neutral for 3 wks post op. Xray orders placed for next visit?: yes Patient given my contact info for questions during business hours, and instructions to page the Ortho resident on-call after hours. Future Appointments Date Time Provider Department Center 05/07/2015 1:15 PM Miles Landry MD [facility] None Iliana BarnhartEd, ATC, OTC Land Surveying Survey Worker-Physician Back Tender to Dr. Ari Landry Department of Orthopaedics Division of Sports Medicine * Telephone Encounter - Katelyn Mendenhall - 04/25/2015 3:36 PM EDT Patient calling for a phone appointment replacing office visit for 04/26/15 documented in this encounter Plan of Treatment Not on file documented as of this encounter Visit Diagnoses Not on filedocumented in this encounter Care Teams Plastic Fixture Builder Relationship Specialty Start Date End Date Aileen Gonzalez MD [address] [place] [address] PCP - General 08/19/10 10/02/18 documented as of this encounter
--- OUTSIDE RECORDS SUMMARY | 2024-05-26 10:29 | XMS_ITS | Encounter Summary ---
Author Organization [facility] Address [address] [place] [address] Care Team Providers Care Damage Cutter Name Role Phone Unavailable Primary Care Provider Unavailabl e Encounter Details Date Type Department Care Team (Late st Contact Info) Description 11/06/2011 Results Only [facility] Laboratory Services - [facility] [address], [place] [address] Aileen Mccartney MD [address] [place] [address] [place] [address] Social History Tobacco Use Types [...] Diagnosis Comments PAP TEST- RESULT ONLY Routine 11/06/2011 0:00 EST documented in this encounter Results * PAP TEST- RESULT ONLY (11/06/2011 0:00 EST) Pathology Report: CYTOPATHOLOGY REPORT Reports generated via electronic interface contain original data; however they are lacking the format of the original report. Caution should be taken when reading/interpreti ng unformatted reports. Name: ? JULIETA SEN ? Accession #: ? [id number] ? : ? 1980 (Age: 31) ??F ?Collect Date: ? 11/06/2011 ? Location: ? [facility] ? Receive Date: ? 11/09/2011 ? Provider: AILEEN MCCARTNEY MD Copy to: ? Final Report SPECIMEN ADEQUACY ? Satisfactory for Evaluation - transformation zone component present GENERAL CATEGORIZATION ? Negative for Intraepithelial Lesion or Malignancy ?? Last Menstural Period: 10/29/11 Specimen/Source: ??Pap Test, Endocervix, ThinPrep Imaging System with manual evaluation Document reviewed and electronically signed by: ? Eva Murrell, CT(ASCP) ? Report ??Date: 11/11/2011 13:36 HPV with Pap Test ? Date Ordered: ? 11/11/2011 ? Status: ?? Signed Out ?Date Complete: ? 11/16/2011 ? By: ??System Interface ? Date Reported: ? 11/16/2011 ? Interpretation RESULT: Negative for HPV types 16, 18, 31, 33, 35, 39, 45, 51, 52, 56, 58, 59, and 68. Comments Document reviewed and electronically signed by: ? System Interface ? Report date: 11/16/2011 By the signature above, the attending physician certifies that he/she has personally conducted a gross and/or microscopic examination of the described specimens and rendered or confirmed the above diagnosis. End of Report [facility] 11/06/2011 11/09/2011 Aileen Mccartney MD PATHOLOGY ORDERABLES [facility] [address] [place] [address] documented in this encounter Visit Diagnoses Not on filedocumented in this encounter
--- OUTSIDE RECORDS SUMMARY | 2024-05-26 10:29 | XMS_ITS | Encounter Summary ---
Author Organization [facility] Address [facility] [place] [address] Care Team Providers Care Filling Machine Set Up Mechanic Name Role Phone Aileen Gonzalez MD Primary Care Provider [phone] Encounter Details Date Type Department Care Team (Late st Contact Info) Description 04/24/2015 7:30 AM EDT - 04/24/2015 9:45 AM EDT Surgery [facility] [place] [address] Natasha Landry MD [facility] [address] [place] [address] ARTHROSCOPY HIP W/LABRAL REPAIR (WRVU 15) Social History Tobacco Use Types Packs/Day Years [...] Sign Reading Time Taken Comments Blood Pressure 101/60 04/24/2015 10:51 AM EDT Pulse 59 04/24/2015 10:51 AM EDT Temperature 36.1 ??C (97 ??F) 04/24/2015 10:14 AM EDT Respiratory Rate 18 04/24/2015 10:51 AM EDT Oxygen Saturation 98% 04/24/2015 10:51 AM EDT Inhaled Oxygen Concentration - - Weight 66.2 kg (146 lb) 04/24/2015 6:20 AM EDT Height 172.7 cm (5' 8) 04/24/2015 6:20 AM EDT Body Mass Index 22.2 04/24/2015 6:20 AM EDT documented in this encounter Discharge Instructions * Discharge Instructions* Merary Chua I, RN - 04/24/2015 7:09 AM EDT Images from the original note were not included. Tylenol 1000 mg and Gabapentin 600 mg was given at 7:00 am. You may take Tylenol again after 3:00 pm. General Anesthesia Discharge Instructions Go home and rest. You may be sleepy for several hours. Take it easy as sudden position changes may cause nausea and/or dizziness. Use caution on stairs. Do not smoke if you are alone. Follow a light to regular diet as tolerated today. If nausea occurs, start with clear liquids, and progress slowly to a regular diet. Do not drive, operate machinery, drink alcoholic beverages or make any legal decisions after havinggeneral anesthesia. The medications given change your reaction time and alter your judgement. IV site -- slight redness is normal, you can use warm compresses. If tenderness and redness increases or foul drainage occurs, please contact your M.D. Patients who have had endotracheal tubes/LMA (tubes used by the anesthesia staff to ensure a safe airway during your operation) may have a sore throat. This is normal and cold liquids or soothing lozengers will help ease this discomfort. Narcotic pain medications can cause constipation, please ask the surgeons office what they recommend for prevention of this. Some non-pharmaceutical means of constipation prevention include increasing intake of fluids, eating more fruits and vegetables as well as fruit juices. If you are uncomfortable and/or unable to urinate within 8 hours of discharge and it is before 5 pm, call your physician. If it is after 5pm go to the closest emergency room or call the hospital door machine operator at [phone] and ask for physician diamond sizer and grader covering for your physician. Questions or problems after 5pm or on a weekend: Call the [facility] door machine operator at and ask for the physician diamond sizer and grader covering for your doctor. [facility] Learning About Deep Vein Thrombosis What is deep vein thrombosis? A deep vein thrombosis (DVT) is a blood clot in certain veins of the legs, pelvis, or arms. The clot is usually in the legs. DVT may damage the vein and cause the area to ache, swell, and change color. DVT also can lead to sores. DVT in these veins needs to be treated because the clots can get bigger, break loose, and travel through the bloodstream to the lungs. A blood clot in a lung can cause . Blood clots can form in the veins when you are not active for a long period of time. For example, they can form if you need to stay in bed because of a health problem or must sit for a long time on an airplane or in a car. Surgery or an injury can damage your blood vessels and cause a clot to form.Cancer also can cause DVT. And some people have blood that clots too easily, which is a problem that may run in families. A risk factor is something that makes you more likely to develop a disease. Here are some major risk factors for DVT: You have surgery. You have to stay in bed for more than 3 days (such as in the hospital). Your blood is likely to clot because of an injury, cancer, or inherited condition. Here are some minor risk factors for DVT: You take control hormones. You are . You are in a car or airplane for a long trip. What are the symptoms? Symptoms of DVT may include: Swelling in the affected area. Redness and warmth in the affected area. Pain or tenderness. You may have pain only when you touch the affected area or when you stand or walk. If your doctor thinks you may have DVT, you will probably have an ultrasound test. You may have other tests as well. How can you prevent DVT? Exercise your lower leg muscles to help blood flow in your legs. Point your toes up toward your head so the calves of your legs are stretched, then relax and repeat. This is a good exercise to do when you are sitting for long periods of time. Get out of bed as soon as you can after an illness or surgery. If you need to stay in bed, do the leg exercise noted above every hour when you are awake. Use special stockings called compression stockings. These stockings are tight at the feet with a gradually looser fit on the leg. Many doctors recommend that you wear compression stockings during a journey longer than 8 hours. Take breaks when you are on long trips. Stop the car and walk around. On long airplane flights, walk up and down the aisle hourly, flex and point your feet every 20 minutes while sitting, and drink plenty of water. Take blood-thinning medicines before and after some types of surgery if your doctor recommends it. Blood thinners also may be used if you are likely to develop clots. How is DVT treated? Treatment for DVT usually involves taking blood thinners. These medicines are given through a vein (intravenously, or IV) or as a pill. You will have blood tests often so your doctor can see how wellthe blood thinners are working. Your doctor also may suggest that you prop up or elevate your leg when possible, take walks, and wear compression stockings. These measures may help reduce the pain and swelling that can happen with DVT. Follow-up care is a bernal part of your treatment and safety. Be sure to make and go to all appointments, and call your doctor if you are having problems. It's also a good idea to know your test resultsand keep a list of the medicines you take. Where can you learn more? Visit our health information library at [email or web address] center[facility] Networksshraddha.[employer]/healthinfo. You can alsoview health information on [employer], your personal patient account. Log in or sign up today. Enter X941 in the search box to learn more about Learning About Deep Vein Thrombosis. ?? [id number] [employer]. Care instructions adapted under license by [facility]. This care instruction is for use with your licensed healthcare professional. If you have questions about a medical condition or this instruction, always ask your healthcare professional. [employer] disclaims any warranty or liability for your use of this information. Content Version: 8.9.56819; Last Revised: November 12, 2009 * Patient Instructions* Idris Oswald - 04/24/2015 10:12 AM EDT Weight Bearing/Activity: Labral Debridement/Repair w/Impingement: 50% weight bearing with normal gait (heel-toe) until seen in follow-up (~2 weeks). For capsular repair, no external rotation past neutral X 2 weeks. Pain Medication Protocol: 1) Oxycontin 10mg: take 1 tablet twice daily starting the evening of surgery. Continue taking one tablet in the morning and one in the evening for 3 days. Oxycontin is a long acting narcotic pain medication. 2) Oxycodone 5mg: take 1 - 2 tablets every 4 - 6 hours for pain as needed. Take this medication with a small amount of food to help prevent nausea. Oxycodone is a short acting narcotic pain medication. [id number] Tylenol (acetaminophen) may be taken in addition to oxycodone for further pain relief. Follow the instructions on the Tylenol package for dosage and frequency. 3) Aspirin 325mg: take 1 tablet twice daily starting on the day after surgery and continue for 2 weeks. Take with meals to minimize gastrointestinal (stomach) irritation. Aspirin helps with pain control, reduces inflammation, and help to prevent blood clots. 4) NSAID: You will be given an NSAID (Indocin 75CR) to take once daily for the next 3 days to help prevent heterotopic ossification (bone formation). Following that you will take Mobic daily for one month. Take with meals to minimize gastrointestinal (stomach) irritation. Post-operative constipation: Constipation is common after surgery. Drinking plenty of water is important in helping to prevent this. An livf-fvg-gtzaosn stool softener can also help prevent or treat constipation. Colace 100mg tablets can be obtained at most pharmacies and can be taken 2 - 3 times a day. The pain medication may also cause nausea. If you have significant nausea, we can provide a prescription for an anti-nausea medication. Cryotherapy: ??? Ice is a highly effective anti-inflammatory in the postoperative period. It helps reduce inflammation and pain. ??? Apply an ice pack to the surgical area for 20-30 minutes every 3-[address]. [address] ice directly on the skin as this can cause frostbite; place a towel/rag between the ice and skin. ??? Specific cooling machines have been designed to wrap around the hip after hip surgery. Your physical therapist may use this during therapy sessions Incision Care: The original dressing should be removed 48 hours after surgery. Clean around your incision sites with soap and water, and then pat dry. Apply a water-proof dressing over the incision site until you have stopped draining. After, apply band aids over the incisions so your sutures do not catch and pull on your clothing. Do this daily or as needed through out the day if the band-aid becomes soiled orwet. Do not put any ointments or lotions over the incisions until your sutures are removed. Showering: As long as there isn???t any drainage from the incision sites, you may resume regular showers afterthe initial dressing is removed. Water may run over the incision. When complete, pat the incision dry, and reapply the band-aid or tegaderm Returning to work or school: You may return to work or school in 4-5 days after surgery if pain is tolerable and your job does not require manual labor. You must take the time to honor your commitments to physical therapy and office visits. Returning to heavy labor will be determined by your progression through physical therapy and the cartilage condition on the acetabulum and femoral head. Driving No driving while on narcotic pain medications. You may drive once you are confident that you can brake suddenly if needed and you are off narcotic pain medication. documented in this encounter Medications at Time of Discharge Medication Sig Dispensed Refills Start Date End Date oxyCODONE (OXYCONTIN) 10 mg tablet,oral only,ext.rel.12 hr Take 1 tablet by mouth every 12 hours. 6 tablet 0 04/24/2015 05/07/2015 indomethacin (INDOCIN SR) 75 mg Capsule, Sustained Release Take 1 capsule by mouth daily. 3 capsule 0 04/24/2015 05/07/2015 oxyCODONE (ROXICODONE) 5 mg Tablet Take 1-2 tablets by mouth every 4 hours as needed for Pain. 40 tablet 0 04/24/2015 06/18/2015 meloxicam (MOBIC) 15 mg Tablet Take 1 tablet by mouth daily. 30 tablet 0 04/24/2015 06/18/2015 fluocinonide (LIDEX) 0.05 % cream Apply topically as needed. 02/13/2020 rizatriptan (MAXALT-PASSENGER BRAKEMAN) 10 mg disintegrating tablet 10/01/2005 12/27/2015 documented as of this encounter H&P Notes * Natasha Landry MD - 04/24/2015 10:29 AM EDT The patient's history and physical exam have been reviewed and completed. There has been no interval change from that of the pre-operative history and physical exam done within the last 30 days. Source Note - Natasha Landry MD - 04/24/2015 10:29 AM EDT Patient Name: Julieta Sen Patient Age: 34 y.o. Birthdate: 1980 Admit date: 04/24/2015 Attending Physician: Natasha Landry MD Please see my recent clinic note for pre-op H&P. * Natasha Landry MD - 04/24/2015 10:29 AM EDT Patient Name: Julieta Sen Patient Age: 34 y.o. Birthdate: 1980 Admit date: 04/24/2015 Attending Physician: Natasha Landry MD Please see my recent clinic note for pre-op H&P. documented in this encounter Miscellaneous Notes * Op Note - Natasha Landry MD - 04/24/2015 9:55 AM EDT [facility] Operative Note Patient Name: Julieta Sen : [id number] MR#: [id number] Case Date: 04/24/2015 Surgeon: Surgeon(s) and Role: * Natasha Landry MD - Primary * Idris Oswald MD - Resident-Surgeon Simón Preoperative diagnosis: Labral tear right hip with anterior CEA of 24 Postoperative diagnosis: Labral tear right hip with anterior CEA of 24 and mild BART. Procedure(s): ARTHROSCOPY HIP W/LABRAL REPAIR ARTHROSCOPY HIP W/Limited Femoroplasty ARTHROSCOPY HIP W/Capsular repair/imbrication. Anesthesia: General Estimated Blood Loss: 5cc Specimens removed during surgery: None Drains: none Surgical Closure: Primary Closure - closure of ALL tissue levels during the original surgery regardless of wires, wickes, drains, or other devices extruding through the incision Disposition: awakened from anesthesia, extubated and taken to the recovery room in a stable condition, having suffered no apparent untoward event. Condition: doing well without problems Indications: 34 yo female with greater than two years of right hip pain. 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 After a discussion of risks and benefits, the patient elected to undergo the above procedures. Operative Findings: 1. Acetabular Cartilage: Softening 12-2 - grade I-II ~3-4mm deep. 2. Acetabular Labrum: Hypertrophic and torn w/some intra-substance degeneration 11:30 - 3:00 3. Femoral Head: normal 4. Cotyloid Fossa: Synovitic. 5. Capsule: Synovitic. 6. Peripheral Compartment: Impaction injury at anterolateral head/neck junction - mild loss head/neck offset. Intact medial synovial fold. Intact lateral epiphyseal vessels. Traction time 81min Description: The patient was greeted in the Preoperative Holding Area. Consent was reviewed, the right hip was confirmed to be the correct hip and was marked with a green [place]. The patient was thenidentified by Anesthesia and brought to the Operating Room and placed supine on the operating room table. General anesthetic with muscular relaxation was initiated. The patient was then positioned onthe table with a well-padded perineal post, and the bilateral feet placed in traction boots. Arms were carefully padded. The hip was then prepped and draped in the standard sterile fashion. A surgical time-out was performed with the proper site and consent confirmed, and the patient received appropriate preoperative antibiotics. Gentle traction was placed through the non-operative leg and distraction traction was placed through the operative lower extremity. A single shot fluoroscopic image confirmed adequate distraction of the hip. An anterolateral portal was made with a cassandra and spread technique 1cm proximal and 1cm medial to the tip of the greater trochanter. A spinal needle was advanced into the joint under fluoroscopic guidance. Joint was insufflated with saline. Nitinol wire was placed, and then the 4.5 cannula was advanced into the joint. The camera was placed in the joint. We had excellent visualization of the anterior triangle. A mid anterior portal was then established with similar cassandra an spread technique and a 5.0 cannula was placed. The camera was switched to the mid anterior portal. We were able to view ourentry point posteriorly. A [place] blade was then used to perform a capsulotomy connecting the anterolateral and mid anterior portals. This allowed better visualization of the joint. Acetabuloplasty/Labral Repair: At this point, the labrum was visualized throughout its entire course. Labral tear as described above. Dissection was carried out behind the labrum to the acetabular rim with the use of a shaver and arthrocare - care was taken not to remove proximal capsule to allow for capsular repair at the end of the case. Rim preparation was performed with the use of a 5.5 round keo from the 12 to 3 o???clock positions - care was taken not to remove and significant bone, the keo was used to abrade the rimto a bed of bleeding bone. Following preparation, the labrum was re-attached to the rim with the use of three 2.3 osteoraptor suture anchors placed through a single percutaneous distal portal. Sutures were passed in a looped fashion and tied down with standard knot tying technique using a sliding locking Asif knot backed up with 3 half hitches. Limited Femoroplasty: At this point the joint was copiously irrigated and I then released traction and moved into the peripheral compartment. The hip was brought through a range of motion and an anterolateral impaction injury consistent with mild CAM deformity was identified - it was just adjacent to the area of labral repair. The impingement region was then shaped back to the normal head-neck contour with the use of a 5.5 keo. This was viewed from multiple angles to assure the correct amount of bony resection was achieved. In addition, fluoroscopy was utilized during this portion of the case. Capsular repair: At this time a capsular repair was performed with the use of a 90 degree suture lasso - shuttling a single #2 Vicryl to capture the proximal and distal leaflets of the capsule. This was tied down with standard knot tying technique using a sliding locking Mccracken knot backed up with 2 half hitches. The was repeated for a second capsular stitch giving us a tight capsular repair/imbrication. At this point the peripheral compartment was copiously irrigated and then evacuated of all fluid. Along spinal needle was then placed through the anterolateral portal into the peripheral compartment. Arthroscopic portals were closed with 3-0 Vicryl and 4-0 Prolene. The peripheral compartment was then injected with 20cc of .25% Marcaine. Each portal site was injected with 5cc of 0.25% Marcaine. The wounds were covered with Xeroform and a dry sterile dressing. The patient was extubated and transferred back to the hospital bed and into the PACU in stable condition. All counts were correct at the end of the case. There were no apparent complications. Post-operative Plan: Physical Therapy per [facility] protocol to start in the next 2-5 days. Weight Bearing/Crutch use Labral Repair w/Impingement: 50% weight bearing with normal gait (heel-toe) - no external rotation past neutral until seen in follow-up. Attestation: Case Date: 04/24/2015 I was present and I participated during the entire procedure (does not need to include opening and closing). NATASHA LANDRY MD 04/24/2015 documented in this encounter Plan of Treatment Pending Results Name Type Priority Associated Diagnoses Date /Time XR Fluoro OR c-arm storage only Imaging Routine 04/24/2015 10:00 AM EDT Scheduled Orders Name Type Priority Associated Diagnoses Orde r Schedule XR Fluoro OR c-arm storage only Imaging Routine Once PRN (for Ra diant use) for 1 Occurrences starting 04/24/2015 until 04/24/2015 documented as of this encounter Procedures Procedure Name Priority Date/Time Associated Diagnosis Comments ARTHROSCOPY HIP W/LABRAL REPAIR (WRVU 15) 04/24/2015 7:28 AM EDT Right hip pain documented in this [...] MAR Action Action Date Dose Rate Site acetaminophen (TYLENOL) tablet 1,000 mg 1,000 mg, Oral, ONCE, 1 dose, On Wed04/24/15 at 0730, Maximum dose of acetaminophen is 4000 mg from all sources in 24 hours., Routine Given 04/24/2015 7:04 AM EDT 1,000 mg EPINEPHrine (ADRENALIN) injection ONCE PRN, Starting on Wed04/24/15 at 0801, Until Wed04/24/15 at 1151, Intra-Operative (Intra-Procedure), Routine Given 04/24/2015 8:01 AM EDT 1 mg fentaNYL (PF) 50 mcg/mL 2mL syringe 25 mcg, Intravenous, EVERY 5 MIN PRN, Pain, for breakthrough pain, Starting on Wed04/24/15 at 1020, Until Wed04/24/15 at 1151, Hold for respiratory rate less than 10 per minute. Maximum dose: 250 mcg over one hour., PACU Recovery Given 04/24/2015 10:33 AM EDT 25 mcg Given 04/24/2015 10:28 AM EDT 25 mcg Given 04/24/2015 10:23 AM EDT 25 mcg gabapentin (NEURONTIN) capsule 600 mg 600 mg, Oral, ONCE, 1 dose, On Wed04/24/15 at 0730, Routine Given 04/24/2015 7:03 AM EDT 600 mg HYDROmorphone (DILAUDID) syringe 0.2-0.4 mg 0.2-0.4 mg, Intravenous, EVERY 5 MIN PRN, Pain, Starting on Wed04/24/15 at 1020, Until Wed04/24/15 at 1151, For moderate pain (4-6) give: 0.2 mg every 5 minute prn For severe pain (7-10) give: 0.4 mg every 5 minutes prn Maximum dose: 4 mg per hour Hold for respiratory rate less than 10 per minute., PACU Recovery Given 04/24/2015 10:39 AM EDT 0.4 mg Given 04/24/2015 10:29 AM EDT 0.4 mg Given 04/24/2015 10:23 AM EDT 0.4 mg lactated ringers infusion 1,000 mL 1,000 mL, at 100 mL/hr, Intravenous, CONTINUOUS, Starting on Wed04/24/15 at 0645, Until Wed04/24/15 at 1151, Day of Surgery (Day of Procedure) New Bag 04/24/2015 6:43 AM EDT 1,000 mLs 100 mL/hr oxyCODONE (ROXICODONE) immediate release tablet 10 mg 10 mg, Oral, EVERY 4 HOURS PRN, Starting on Wed04/24/15 at 1020, Until Wed04/24/15 at 1151, Pain, moderate pain (4-6), For moderate pain (4-6). Do not exceed 15 mg in 4 hours. If pain not relieved, call provider., PACU Recovery, Routine Given 04/24/2015 10:48 AM EDT 10 mg documented in this encounter Active and Recently Administered Medications Times are shown in EDT. Scheduled Medication Order 04/22/2015 04/23/2015 04/24/2015 acetaminophen (TYLENOL) tablet 1,000 mg (COMPLETED) 1,000 mg, Oral, ONCE, 1 dose, On Wed04/24/15 at 0730, Maximum dose of acetaminophen is 4000 mg from all sources in 24 hours., Routine 703 (Given - Provid er: Merary Fan RN) gabapentin (NEURONTIN) capsule 600 mg (COMPLETED) 600 mg, Oral, ONCE, 1 dose, On Wed04/24/15 at 0730, Routine 07 (Given - Provid er: Merary Fan RN) Continuous Medication Order 04/22/2015 04/23/2015 04/24/2015 lactated ringers infusion 1,000 mL (CANCELED) 1,000 mL, at 100 mL/hr, Intravenous, CONTINUOUS, Starting on Wed04/24/15 at 0645, Until Wed04/24/15 at 1151, Day of Surgery (Day of Procedure) 0643 (New Bag - Prov ider: Merary Fan RN)0810 (Anesthesia Volume Adjustment - Provider: Nova Varela)0949 (Anesthesia Volume Adjustment - Provider: Nova Varela)1014 (Stopped - Provider: Nova Varela) PRN Medication Order 04/22/2015 04/23/2015 04/24/2015 EPINEPHrine (ADRENALIN) injection (CANCELED) ONCE PRN, Starting on Wed04/24/15 at 0801, Until Wed04/24/15 at 1151, Intra-Operative (Intra-Procedure), Routine 0801 (Given - Provid er: Natasha Landry MD - Comment: mixed with 3 liters NS) fentaNYL (PF) 50 mcg/mL 2mL syringe (CANCELED) 25 mcg, Intravenous, EVERY 5 MIN PRN, Pain, for breakthrough pain, Starting on Wed04/24/15 at 1020, Until Wed04/24/15 at 1151, Hold for respiratory rate less than 10 per minute. Maximum dose: 250 mcg over one hour., PACU Recovery 1018 (Given - Provid er: Marlen Weaver RN)1023 (Given - Provider: Marlen Weaver RN)1028 (Given - Provider: Marlen Weaver RN)1033 (Given - Provider: Marlen Weaver RN) HYDROmorphone (DILAUDID) syringe 0.2-0.4 mg (CANCELED) 0.2-0.4 mg, Intravenous, EVERY 5 MIN PRN, Pain, Starting on Wed04/24/15 at 1020, Until Wed04/24/15 at 1151, For moderate pain (4-6) give: 0.2 mg every 5 minute prn For severe pain (7-10) give: 0.4 mg every 5 minutes prn Maximum dose: 4 mg per hour Hold for respiratory rate less than 10 per minute., PACU Recovery 1023 (Given - Provid er: Marlen Weaver RN)1029 (Given - Provider: Marlen Weaver RN)1039 (Given - Provider: Marlen Weaver RN) oxyCODONE (ROXICODONE) immediate release tablet 10 mg (CANCELED)(Linked Group 1) 10 mg, Oral, EVERY 4 HOURS PRN, Starting on Wed04/24/15 at 1020, Until Wed04/24/15 at 1151, Pain, moderate pain (4-6), For moderate pain (4-6). Do not exceed 15 mg in 4 hours. If pain not relieved, call provider., PACU Recovery, Routine 1048 (Given - Provid er: Marlen Weaver RN) No Frequency Medication Order 04/22/2015 04/23/2015 04/24/2015 ceFAZolin (ANCEF) 2 gram/50 mL infusion (COMPLETED) 1 dose, Starting on Wed04/24/15 at 0628, Until Wed04/24/15 at 0729, MERARY CHUA: cabinet override 0729 (Given - Provid er: Nova Varela) Linked Groups Order Group 1: oxyCODONE (ROXICODONE) immediate release tablet 5 mg (CANCELED) 5 mg, Oral, EVERY 4 HOURS PRN, Starting on Wed04/24/15 at 1020, Until Wed04/24/15 at 1151, Pain, mild pain (1-3), For mild pain (1-3). Do not exceed 15 mg in 4 hours. If pain not relieved, call provider, PACU Recovery, Routine Or oxyCODONE (ROXICODONE) immediate release tablet 10 mg (CANCELED)Jump to med 10 mg, Oral, EVERY 4 HOURS PRN, Starting on Wed04/24/15 at 1020, Until Wed04/24/15 at 1151, Pain, moderate pain (4-6), For moderate pain (4-6). Do not exceed 15 mg in 4 hours. If pain not relieved, call provider., PACU Recovery, Routine Or oxyCODONE (ROXICODONE) immediate release tablet 15 mg (CANCELED) 15 mg, Oral, EVERY 4 HOURS PRN, Starting on Wed04/24/15 at 1020, Until Wed04/24/15 at 1151, Pain, severe pain, PACU Recovery, Routine documented in this encounter Care Teams Filling Machine Set Up Mechanic Relationship Specialty Start Date End Date Aileen Gonzalez MD [address] [place] [address] PCP - General 08/19/10 10/02/18 documented as of this encounter
--- OUTSIDE RECORDS SUMMARY | 2024-05-26 10:29 | XMS_ITS | Encounter Summary ---
Author Organization [facility] Address [facility] [place] [address] Care Team Providers Care Hemmer Chainstitch Name Role Phone Aileen Gonzalez MD Primary Care Provider Reason for Visit * Reason Onset Date Comments Injections 01/29/2014 Encounter Details Date Type Department Care Team (Late st Contact Info) Description 01/29/2014 Telephone [place] [id number] Miles Landry MD [facility] [place] [address] Injections Social History Tobacco Use Types Packs/Day [...] Notes * Telephone Encounter - Fany Zarco - 01/29/2014 2:20 PM EDT Patient calls seeking hip injection. She reports about 5 months of significant relief from her previous intra articular injection. Note from her last visit with Dr. Landry in on 10/13/13 indicates continued management with injections would be reasonable at this time. Order placed for R hip IA injection. Gave patient the number for Fluoro scheduling for her to call at her convenience. She was very pleased with the call. documented in this encounter Plan of Treatment Not on file documented as of this encounter Results * XR Fluoro injection FL drain large JT (02/16/2014 3:07 PM EDT) Anatomical Region Laterality Modality N/A Radiographic Tia ging 02/16/2014 3:07 PM EDT Impressions 02/20/2014 4:18 PM EDT IMPRESSION: Uneventful right hip injection under fluoroscopy. ?? Attending: RHYS FINK MD Narrative 02/20/2014 4:18 PM EDT Julieta Larkin Mckinley [id number] ?? HISTORY: right hip Pain ?? Right [...] were reviewed with patient. ?? Procedure Note Rhys Fink MD - 02/20/2014 Julieta Larkin Mckinley [id number] HISTORY: right hip Pain Right hip INJECTION [...] thigh documented in this encounter Care Teams Hemmer Chainstitch Relationship Specialty Start Date End Date Aileen Gonzalez MD [address] [place] [address] PCP - General 08/19/10 10/02/18 documented as of this encounter
--- OUTSIDE RECORDS SUMMARY | 2024-05-26 10:29 | XMS_ITS | Encounter Summary ---
Author Organization [facility] Address [facility] [place] [address] Care Team Providers Care Blankmaker Name Role Phone Aileen Gonzalez MD Primary Care Provider [phone] Encounter Details Date Type Department Care Team (Latest Contact Info) Description 03/19/2015 12:41 PM EDT - 03/19/2015 11:59 PM EDT Hospital Encounter XRay at [address] [place] [address] Pain in right hip Social History Tobacco Use Types Packs/Day [...] mouth daily. 3 capsule 0 04/24/2015 05/07/2015 meloxicam (MOBIC) 15 mg Tablet Take 1 tablet by mouth daily. 30 tablet 0 04/24/2015 04/24/2015 oxyCODONE (ROXICODONE) 5 mg Tablet Take 1-2 tablets by mouth every 4 hours as needed for Pain. 40 tablet 0 04/24/2015 06/18/2015 meloxicam (MOBIC) 15 mg Tablet Take 1 tablet by mouth daily. 30 tablet 0 04/24/2015 06/18/2015 fluocinonide (LIDEX) 0.05 % cream Apply topically as needed. 02/13/2020 rizatriptan (MAXALT-SENIOR CHEMICAL PROCESS ENGINEER) 10 mg disintegrating tablet 10/01/2005 12/27/2015 documented as of this encounter Plan of Treatment Not on file documented as of this encounter Procedures Procedure Name Priority Date/Time Associated Diagnosis Comments XR PELVIS AP AND HIP 2 VIEWS OF 1 HIP Routine 03/19/2015 12:54 PM EDT Pain in right hip documented [...] normal. Procedure Note Maritza Angelo MD / ELANIA, UNSIGNED REPORT / Amy Lee MD - [...] thigh documented in this encounter Care Teams Blankmaker Relationship Specialty Start Date End Date Aileen Gonzalez MD [address] [address] PCP - General 08/19/10 10/02/18 documented as of this encounter
--- OUTSIDE RECORDS SUMMARY | 2024-05-26 10:29 | XMS_ITS | Encounter Summary ---
Author Organization [facility] Address [address] [place] [address] Care Team Providers Care Company Tanker Truck Driver Name Role Phone Unknown, Provider Primary Care Provider [phone] Encounter Details Date Type Department Care Team (Latest Contact Info) Description 04/06/2018 10:19 EDT - 04/06/2018 23:59 EDT Hospital Encounter [address] [address] Unknown, Provider, Discharge Disposition: Home or Self [...] on filedocumented in this encounter Care Teams Company Tanker Truck Driver Relationship Specialty Start Date End Date Unknown, Provider, PCP - General 08/09/15 04/11/19 documented as of this encounter
--- OUTSIDE RECORDS SUMMARY | 2024-05-26 10:29 | XMS_ITS | Encounter Summary ---
Author Organization [facility] Address [facility] [place] [address] Care Team Providers Care Radiator Cleaner Name Role Phone Aileen Gonzalez MD Primary Care Provider [phone] Reason for Visit * Reason Onset Date Comments Physical Therapy 04/29/2015 Encounter Details Date Type Department Care Team (Late st Contact Info) Description 04/29/2015 Telephone [place] [phone] [facility] [place] [address] Physical Therapy Social History Tobacco Use Types Packs/Day Years [...] encounter Miscellaneous Notes * Telephone Encounter - Lala Lopez RN - 04/29/2015 10:30 AM EDT Weight Bearing/Crutch use Labral Repair w/Impingement: 50% weight bearing with normal gait (heel-toe) - no external rotation past neutral until seen in follow-up. Telephone call to Ivette given the above instructions per OP note. * Telephone Encounter - Darlin Christine - 04/29/2015 10:09 AM EDT Who is calling: patient/physical therapist: Where do they have their PT? [facility] Fax # What they need: Ivette called from [facility] and she would like to get clarification on patient weight bearing. documented in this encounter Plan of Treatment Not on file documented as of this encounter Visit Diagnoses Not on filedocumented in this encounter Care Teams Radiator Cleaner Relationship Specialty Start Date End Date Aileen Gonzalez MD [address] [place] [address] PCP - General 08/19/10 10/02/18 documented as of this encounter
--- OUTSIDE RECORDS SUMMARY | 2024-05-26 10:29 | XMS_ITS | Encounter Summary ---
Author Organization [facility] [place] [address] Care Team Providers Care Sales Development Manager Name Role Phone Catarina Min APRN Primary Care Provider [phone] Encounter Details Date Type Department Care Team (Late st Contact Info) Description 12/06/2023 Telephone [place] [phone] Danish Schwartz MD [facility] [place] [address] Social History Tobacco Use Types Packs/Day Years [...] encounter Miscellaneous Notes * Telephone Encounter - Danish Schwartz MD - 12/06/2023 6:45 PM EDT Called patient to review endometrial biopsy. Discussed benign endometrium with progestin effect, some inflammation, but no hyperplasia or cancer. All questions answered. Danish Schwartz MD documented in this encounter Plan of Treatment Not on file documented as of this encounter Visit Diagnoses Not on filedocumented in this encounter Care Teams Sales Development Manager Relationship Specialty Start Date End Date Catarina Min APRN [address] [place] [address] PCP - General Family Medicine 04/08/21 documented as of this encounter
--- OUTSIDE RECORDS SUMMARY | 2024-05-26 10:29 | XMS_ITS | Encounter Summary ---
Author Organization [facility] Address [facility] [place] [address] Care Team Providers Care Cloud Solutions Architect Name Role Phone Aileen Gonzalez MD Primary Care Provider [phone] Encounter Details Date Type Department Care Team (Latest Contact Info) Description 04/24/2015 6:10 AM EDT - 04/24/2015 11:48 AM EDT Hospital Encounter [facility]patient [place] [address] Natasha Landry MD [facility] [place] [address] Right hip pain Discharge Disposition: Home Social [...] closest emergency room or call the hospital dispensing operator at [phone] and ask for physician cyber security consultant covering for your physician. Questions or problems after 5pm or on a weekend: Call the [facility] dispensing operator at and ask for the physician cyber security consultant covering for your doctor. [facility] Learning About Deep Vein Thrombosis What [...] more? Visit our health information library at [email or web address] [email or web address]/[email or web address]. You can alsoview health information on [employer], your personal patient account. Log in or sign up today. Enter X941 in the search box to learn more about Learning About Deep Vein Thrombosis. ?? [phone] [employer]. Care instructions adapted under license by [facility]. This care instruction is for use with your licensed healthcare professional. If you have questions about a medical condition or this instruction, always ask your healthcare professional. [employer] disclaims any warranty or liability for your use of this information. Content Version: 8.9.98489; Last Revised: November 12, 2009 * Patient [...] is a short acting narcotic pain medication. Dyqf-egq-sygsvhv Tylenol (acetaminophen) may be taken in addition [...] important in helping to prevent this. An wtxb-vck-uodisga stool softener can also help prevent or [...] cream Apply topically as needed. 02/13/2020 rizatriptan (MAXALT-FISHING FLOATS ASSEMBLER) 10 mg disintegrating tablet 10/01/2005 12/27/2015 documented [...] Landry MD - 04/24/2015 9:55 AM EDT [facility] [place] Patient Name: Julieta Sen : [id number] MR#: [id number] Case Date: 04/24/2015 Surgeon: Surgeon(s) and Role: [...] hip and was marked with a green augustine. The patient was thenidentified by Anesthesia and [...] able to view ourentry point posteriorly. A [place] blade was then used to perform a [...] knot tying technique using a sliding locking [place] knot backed up with 3 half hitches. [...] sliding locking As[place] knot backed up with 2 half hitches. [...] apparent complications. Post-operative Plan: Physical Therapy per [facility] protocol to start in the next 2-5 [...] Given 04/24/2015 7:04 AM EDT 1,000 mg fentaNYL (PF) 50 mcg/mL 2mL syringe [...] from all sources in 24 hours., Routine 07 (Given - Provid er: Merary Fan RN) gabapentin (NEURONTIN) capsule 600 mg (COMPLETED) 600 mg, Oral, ONCE, 1 dose, On Wed04/24/15 at 0730, Routine 0703 (Given - Provid er: Merary Fan RN) [...] Routine documented in this encounter Care Teams Cloud Solutions Architect Relationship Specialty Start Date End Date Aileen Gonzalez MD [address] [place] [address] PCP - General 08/19/10 10/02/18 documented as of this encounter
--- OUTSIDE RECORDS SUMMARY | 2024-05-26 10:29 | XMS_ITS | Encounter Summary ---
[place] [address] Care Team Providers Care Pallet Stone Positioner Name Role Phone Catarina Min APRN Primary Care Provider [phone] Encounter Details Date Type Department Care Team (Latest Contact Info) Description 11/26/2023 Travel Social History Tobacco Use Types Packs/Day Years [...] on filedocumented in this encounter Care Teams Pallet Stone Positioner Relationship Specialty Start Date End Date Catarina Min APRN [address] [place] [address] PCP - General Family Medicine 04/08/21 documented as of this encounter
--- OUTSIDE RECORDS SUMMARY | 2024-05-26 10:29 | XMS_ITS | Encounter Summary ---
Author Organization [facility] [place] [address] Care Team Providers Care Electronic Assembly Name Role Phone Catarina Min APRN Primary Care Provider [phone] Encounter Details Date Type Department Care Team (Late st Contact Info) Description 07/23/2022 Ancillary Procedure [place] [phone] Danish Schwartz MD [facility] [place] [address] Social History Tobacco Use Types Packs/Day Years [...] FILM LIBRARY STORAGE ONLY ULTRASOUND STUDY Routine 07/23/2022 12:00 AM EDT documented in this encounter Results * Film Library- Storage Only Ultrasound Study (07/23/2022 12:00 AM EDT) Narrative RAD - 11/26/2023 3:55 PM EST This exam is auto-finalizing. It's purpose is for storage only. Danish Schwartz MD IMG FILM LIBRARY O RDERABLES [place], [place] documented in this encounter Visit Diagnoses Not on filedocumented in this encounter Care Teams Electronic Assembly Relationship Specialty Start Date End Date Catarina Min APRN [address] [place] [address] PCP - General Family Medicine 04/08/21 documented as of this encounter
--- OUTSIDE RECORDS SUMMARY | 2024-05-26 10:29 | XMS_ITS | Encounter Summary ---
[place] [address] Care Team Providers Care Beekeeper Name Role Phone Aileen Gonzalez MD Primary Care Provider Encounter Details Date Type Department Care Team (Late st Contact Info) Description 04/24/2015 7:29 AM EDT Anesthesia Event [place] [address] [facility] [place] [address] Darien Engel MD [facility] [place] [address] Anesthesia Record Procedure Summary Procedure Name Responsible Anesthesiologist Anesthesia Start Time Anesthesia Stop Time ARTHROSCOPY HIP W/LABRAL REPAIR (WRVU 15) (Right: Hip) Renny Lomeli DO 04/24/15 0729 04/24/15 1014 Events Date Time Event Comment 04/24/2015 0701 0729 AN Verify 0729 Start 0729 An Start Data 0733 An Induction 0735 An Intubation 0736 Anesthesia Ready 0758 Skin Incision 0851 Break/Relief In SHRUTHI NAVARRO CRNA 0906 Break/Relief Out 1006 Extubation/LMA Out To Delete (skip) the Extubation event, click the X below. 1009 an stop data 1014 Stop Meds Name Total fentaNYL 100 mcg IV Lidocaine 60 mg Propofol 250 mg Rocuronium 80 mg PHENYLephrine 80 mcg ePHEDrine 20 mg Ondansetron 8 mg Dexamethasone 8 mg Neostigmine 3 mg Glycopyrrolate 0.4 mg ceFAZolin (ANCEF) 2 gram/50 mL infusion 2 g Propofol INF 461.75 mg HYDROmorphone 0.6 mg Ketorolac 15 mg lactated ringers infusion 1,000 mL 900 m L * Agents Name O2 Air N2O Sevoflurane (et) * Blood No blood administrations on file. Lines, Drains, and Airways Type Details Placement Removal Incision 04/24/15; hip; laparoscopic puncture; 05/25/22 (LDA cleanup utility RA#[id number]); 1715 (LDA cleanup utility RA#[id number]) 04/24/15 0000 by Lucretia Teran RN 05/25/22 1715 by Jung Luna (RETIRED) Peripheral IV Line - Single Lumen 04/24/15; 0642; basilic vein left (medial side of arm); hrsy-onk-shbtam catheter system; 20 gauge, 1 in length; 04/24/15; 1149 04/24/15 0642 by Merary Chua RN 04/24/15 1149 by Marlen Weaver, GONZALO ETT Mask Ventilation: Ea sy (1); ETT Type: Cuffed, Oral; ETT Size: 7 mm; Mac Blade: 3; Notes: Asleep, Pre-O2, Stylette; Attempts: 1; Laryngoscopy Grade: 1; ETT Placement Verified By: Auscultation, Capnometry, Visual; Secured at Teeth: 21 cm; Removal Date: 04/24/15; Removal Time: 1006 04/24/15 0735 by Nova Richmond CRNA 04/24/15 1006 by Nova Richmond CRNA documented in this encounter Social History Tobacco Use Types Packs/Day Years Used Date Smoking Tobacco: Never Smokeless Tobacco: Never Alcohol Use Standard Drinks/Week Comments Yes 0 (1 standard drink = 0.6 oz pur e alcohol) Sex and Gender Information Value Date Recorded Sex Assigned at Not on file Gender Identity Female 02/13/2020 11:32 AM EDT Sexual Orientation Not on file documented as of this encounter OR Notes * Anesthesia Postprocedure Evaluation - Renny Lomeli DO - 04/24/2015 3:27 PM EDT Patient: Julieta Sen Procedure(s) Performed: Procedure(s): ARTHROSCOPY HIP W/LABRAL REPAIR Actual Anesthetic: general Patient location: PACU Post-op pain: Adequate analgesia Post-op nausea: no nausea or vomiting Last Vitals: Filed Vitals: 04/24/15 1051 BP: 101/60 Pulse: 59 Temp: Resp: 18 Post-op cardiovascular and respiratory status: is stable Level of consciousness: awake, alert and oriented Complications: no apparent complications and tolerated the procedure well Fluid Status: normal * Anesthesia Preprocedure Evaluation - AveryBirdieNova A - 04/24/2015 6:49 AM EDT Pre-Anesthesia Evaluation for: Julieta Sen a 34 y.o. female. Procedure(s): ARTHROSCOPY HIP W/LABRAL REPAIR Patient Active Problem List Diagnosis ??? Right hip pain Past Medical History Diagnosis Date ??? Allergy ??? Chronic pain ??? Heart disorder ??? Headache(784.0) ??? Mental or behavioral problem ??? Skin disorder No past surgical history on file. History Substance Use Topics ??? Smoking status: Never Smoker ??? Smokeless tobacco: Never Used ??? Alcohol Use: Yes 1 Glasses of wine per week History Drug Use No No Known Allergies Medications: MAR and/or home medications have been reviewed. Physical Exam: Filed Vitals: 04/24/15 0620 BP: 101/70 Pulse: 49 Temp: 36.5 ??C (97.7 ??F) Resp: 18 Body mass index is 22.2 kg/(m^2). Height: 172.7 cm (5' 8) Weight - Scale: 66.225 kg (146 lb) Airway Assessment: Mallampati: I TM distance: >3 FB Neck ROM: full Cardiovascular Assessment: Rhythm: regular (-) murmur cardiovascular exam normal Pulmonary Assessment: breath sounds clear to auscultation pulmonary exam normal Dental Assessment: - normal exam Misc Assessment: Patient is wearing No contact(s). IV access: Peripheral line Other exam findings: NPO status checked Patient denies personal/family problems with anesthesia Patient denies problems with vision, hearing, balance. Patient denies GERD Denies current smoking Denies recent URI/asthma/PACO Denies kidney/liver problems Denies CP/SOB Denies recent visits to ED Capable of ADLs, > 4 mets Anesthesia Plan: ASA 2 general, with a(n) intravenous induction 34 y/o active and healthy female for R hip scope/labral repair. Hx of migraines NKDA No family hx of difficulty w anesthesia Pt denies CP/SOB/PND/Orthopnea/GERD Plan GETA/MICKI/VA and IV maint/P op PACU care and IV pain control w antiemetics. IC discussed and obtained Region - Other Informed Consent: Anesthetic plan and risks discussed with patient and spouse. Use of blood products discussed with spouse and patient whom consented to blood products. Plan discussed with MANAGER RISK and attending. Misc. Assessment: documented in this encounter Plan of Treatment Not on file documented as of this encounter Visit Diagnoses Not on filedocumented in this encounter Administered Medications Inactive Administered Medications - up to 3 most recent administrations Medication Order MAR Action Action Date Dose Rate Site ceFAZolin (ANCEF) 2 gram/50 mL infusion 1 dose, Starting on Wed04/24/15 at 0628, Until Wed04/24/15 at 0729, MERARY CHUA: cabinet override Given 04/24/2015 7:29 AM EDT 2 g dexamethasone (DECADRON) injection PRN, Starting on Wed04/24/15 at 0742, Until Wed04/24/15 at 1016, Anesthesia Intra-op, Routine Given 04/24/2015 7:42 AM EDT 8 mg ePHEDrine 5 mg/mL multi-dose injection PRN, Starting on Wed04/24/15 at 0806, Until Wed04/24/15 at 1016, Anesthesia Intra-op, Routine Given 04/24/2015 8:51 AM EDT 10 mg Given 04/24/2015 8:11 AM EDT 5 mg Given 04/24/2015 8:06 AM EDT 5 mg fentaNYL 50 mcg/mL multi-dose injection PRN, Starting on Wed04/24/15 at 0758, Until Wed04/24/15 at 1016, Pain, Anesthesia Intra-op, Routine Given 04/24/2015 8:37 AM EDT 50 mcg Given 04/24/2015 7:58 AM EDT 50 mcg glycopyrrolate (ROBINUL) multi-dose injection PRN, Starting on Wed04/24/15 at 0941, Until Wed04/24/15 at 1016, Anesthesia Intra-op, Routine Given 04/24/2015 9:41 AM EDT 0.4 mg HYDROmorphone (DILAUDID) injection PRN, Starting on Wed04/24/15 at 0918, Until Wed04/24/15 at 1016, Pain, Anesthesia Intra-op, Routine Given 04/24/2015 9:49 AM EDT 0.2 mg Given 04/24/2015 9:33 AM EDT 0.2 mg Given 04/24/2015 9:18 AM EDT 0.2 mg ketorolac (TORADOL) injection PRN, Starting on Wed04/24/15 at 0956, Until Wed04/24/15 at 1016, Pain, Anesthesia Intra-op, Routine Given 04/24/2015 9:56 AM EDT 15 mg lidocaine (PF) (XYLOCAINE) 100 mg/5 mL (2 %) injection PRN, Starting on Wed04/24/15 at 0732, Until Wed04/24/15 at 1016, Anesthesia Intra-op, Routine Given 04/24/2015 7:32 AM EDT 60 mg neostigmine (PROSTIGMINE) multi-dose injection PRN, Starting on Wed04/24/15 at 0941, Until Wed04/24/15 at 1016, Anesthesia Intra-op, Routine Given 04/24/2015 9:41 AM EDT 3 mg ondansetron (ZOFRAN) injection PRN, Starting on Wed04/24/15 at 0954, Until Wed04/24/15 at 1016, Nausea, Anesthesia Intra-op, Routine Given 04/24/2015 9:54 AM EDT 8 mg PHENYLephrine HCl in NS (PF) (RIGOBERTO-SYNEPHRINE) 0.8 mg/10 mL (80 mcg/mL) multi-dose injection Syrg PRN, Starting on Wed04/24/15 at 0747, Until Wed04/24/15 at 1016, Anesthesia Intra-op, Routine Given 04/24/2015 7:47 AM EDT 80 mcg propofol (DIPRIVAN) 10 mg/mL bolus injection (Anesthesia) PRN, Starting on Wed04/24/15 at 0733, Until Wed04/24/15 at 1016, Anesthesia Intra-op Given 04/24/2015 7:33 AM EDT 250 mg propofol (DIPRIVAN) infusion CONTINUOUS PRN, Starting on Wed04/24/15 at 0738, Until Wed04/24/15 at 1016, Anesthesia Intra-op, Routine Rate/Dose Change 04/24/2015 9:56 AM EDT 25 mcg/kg/min 9.9 mL/hr New Bag 04/24/2015 7:38 AM EDT 50 mcg/kg/min 19.9 mL/hr rocuronium (ZEMURON) multi-dose injection PRN, Starting on Wed04/24/15 at 0734, Until Wed04/24/15 at 1016, Anesthesia Intra-op, Routine Given 04/24/2015 8:33 AM EDT 20 mg Given 04/24/2015 8:01 AM EDT 10 mg Given 04/24/2015 7:34 AM EDT 50 mg documented in this encounter Care Teams Beekeeper Relationship Specialty Start Date End Date Aileen Gonzalez MD [address] [place] [address] PCP - General 08/19/10 10/02/18 documented as of this encounter
--- OUTSIDE RECORDS SUMMARY | 2024-05-26 10:29 | XMS_ITS | Encounter Summary ---
Author Organization [facility] Address [facility] [place] [address] Care Team Providers Care Kennel Aide Name Role Phone Bia Morrissey APRN Primary Care Provider [phone] Reason for Visit * Reason Comments Skin Cancer Examination * Consultation (Routine) - Specialty Diagnoses / Procedures Referred By Contisrael joyner Referred To Contact Dermatology Diagnoses Disorder of the skin and subcutaneous tissue, unspecified Skin abnormalities Procedures Consult Bia Morrissey APRN [address] [place] [address] [facility] Dermatology [address] [place] [address] Referral ID Status Reason Start Date Expiration Date V isits Requested Visits Authorized [id number] Consult, Test & Treat PCP Updated and/or Approved 11/28/2019 11/27/2020 1 1 Encounter Details Date Type Department Care Team (Late st Contact Info) Description 02/13/2020 1:20 PM EDT Office Visit Dermatology at [facility] [address] [place] [id number] Yanni Issa MD [facility] [address] AL[place] [address] Hand dermatitis (Primary Dx); SK (seborrheic keratosis); Multiple benign nevi; Viral warts, unspecified type Social History Tobacco Use Types Packs/Day Years [...] as of this encounter Progress Notes * Yanni Issa MD - 02/13/2020 1:20 PM EDT DERMATOLOGY OUTPATIENT CLINIC NOTE Date of service: 02/13/2020 Julieta Sen : 1980 Provider: Yanni Issa MD PROBLEM: Full skin exam SKIN HISTORY: Hand Dermatitis HPI Julieta Sen is a 39 y.o. year old female. She was referred today by Bia Morrissey for a moleon the left flank, assessed by this provider in November. Patient reports this mole sloughed off sincemaking this appointment. She would like a full skin exam today. She has multiple moles on her body,none of which are particularly concerning. She also states that she has had eczema for years and this has become quite bothersome recently. Her PCP gave her Lidex cream about 5 years ago which she applies about once weekly and a hand cream daily. Social History: Occupation: [employer]La[employer] off last spring Hobbies: Gardening. Family History: No known hx of skin cancer ADR: No Known Allergies CURRENT MEDICATIONS: Current Outpatient Medications Medication Sig Dispense Refill ??? rizatriptan (MAXALT) 10 mg Tablet TAKE ONE TABLET BY MOUTH ONCE AT ONSET OF HEADACHE AND IF NO RELIEF MAY REPEAT IN 2 HOURS 1 ??? benzonatate (TESSALON) 100 mg Capsule TAKE 1 2 CAPSULES BY MOUTH 3 TIMES A DAY NEEDED FOR COUGH 0 ??? traZODone (DESYREL) 50 mg Tablet ??? fluocinonide (LIDEX) 0.05 % cream Apply topically as needed. No current facility-administered medications for this visit. PROBLEM LIST: Patient Active Problem List Diagnosis Code ??? Right hip pain M25.551 ??? s/p R hip labral repair, femoroplasty 04/24/15 (Gris) M25.551 ??? Health care maintenance Z00.00 ??? De Quervain's tenosynovitis, right M65.4 ROS General: feeling well. Oriented X 3. Skin: denies other skin complaints EXAM General: NAD, pleasant, cooperative Skin: A full body skin exam was performed. This includes examination of the skin of the face, ears,scalp, neck, chest, axillae, back, abdomen, left and right upper and lower extremities, hands, and feet. The genitalia were not examined. Significant skin findings: -Right lower back: 0.4-0.6cm brown papules with waxy, stuck-on appearance. Milia-like cysts, comedone-like openings and/or fissuring on dermoscopy. -Multiple, 0.3-0.5cm, medium-brown, evenly-pigmented macules and papules. No pigmented lesions suspicious for melanoma. -Right ring finger, right lateral nailfold.: Verrucous papules. Pin-point vascular pattern noted ondermoscopy. -on the left index and ring finer there are faint pink scaly patches ASSESSMENT/PLAN Seborrheic Keratosis - Patient reassured of benign nature. - Advised patient to call if areas become inflamed or irritated. Benign Appearing Nevi - Benign. No treatment necessary. - Reassured about benign nature and natural history. Verruca vulgaris -Patient advised to pair down with a nail file and occlude with medi-plast. - Cover using Duct tape or electrical tape vs a band-aid. -Repeat this several times per week. -Patient advised on how to avoid spreading the virus. -counseled patient to think about getting the HPV vaccine. Hand dermatitis Continue Rx: Lidex cream- Apply this to the affected areas on the hands twice daily on the first sign of an eczema flare. Treat for 2-3 days. -Recommended Cotton gloves at night. RTC - 2 years for a FSE, or sooner if needed. Routed to the guidance secretary to schedule. Note initiated and routed to physician for review and change by: Mary Thomas LPN I, Mary Thomas LPN, have performed the documentation for this encounter in the presence of and acting as a scribe for Yanni Issa MD. I, Dr. Yanni Issa, performed the visit service though my nurse assisted me in scribing the note. I reviewed and edited this note above, a scribed service performed by my nurse. On closure of this note I agree with the accuracy of the documentation. Yanni Issa MD Section of Dermatology [facility] documented in this encounter Plan of Treatment Not on file documented as of this encounter Visit Diagnoses Diagnosis Hand dermatitis- Primary Contact dermatitis and other eczema, due to unspecified cause SK (seborrheic keratosis) Other seborrheic keratosis Multiple benign nevi Benign neoplasm of skin, site unspecified Viral warts, unspecified type documented in this encounter Care Teams Kennel Aide Relationship Specialty Start Date End Date Bia Morrissey APRN [address] [place] [address] PCP - General Family Medicine 12/04/19 04/07/21 documented as of this encounter
--- OUTSIDE RECORDS SUMMARY | 2024-05-26 10:29 | XMS_ITS | Encounter Summary ---
Author Organization [facility] Address [facility] [place] [address] Care Team Providers Care Economic Development Manager Name Role Phone Aileen Gonzalez MD Primary Care Provider [phone] Reason for Visit * Reason Onset Date Comments Follow-up 08/30/2015 Encounter Details Date Type Department Care Team (Late st Contact Info) Description 08/30/2015 Telephone [place] [phone] Miles Landry MD [facility] [place] [address] Follow-up Social History Tobacco Use Types Packs/Day Years [...] encounter Miscellaneous Notes * Telephone Encounter - Jillian Heath - 09/09/2015 2:40 PM EST Unable to contact. Letter sent. * Telephone Encounter - Jillian Heath - 09/04/2015 9:53 AM EST LM#2 to schedule appt below. * Telephone Encounter - Jillian Heath - 08/30/2015 6:32 PM EST LM#1 to schedule 4-month follow-up in Dr. Landry' clinic (around 12/27/15) NXR. documented in this encounter Plan of Treatment Not on file documented as of this encounter Visit Diagnoses Not on filedocumented in this encounter Care Teams Economic Development Manager Relationship Specialty Start Date End Date Aileen Gonzalez MD [address] [place] [address] PCP - General 08/19/10 10/02/18 documented as of this encounter
--- OUTSIDE RECORDS SUMMARY | 2024-05-26 10:29 | XMS_ITS | Encounter Summary ---
Author Organization [facility] [place] [address] Care Team Providers Care Syrup Blender Name Role Phone Catarina Min APRN Primary Care Provider [phone] Encounter Details Date Type Department Care Team (Late st Contact Info) Description 10/25/2023 Ancillary Procedure [place] [id number] Danish Schwartz MD [facility] [place] [address] Social History Tobacco Use Types Packs/Day Years [...] FILM LIBRARY STORAGE ONLY ULTRASOUND STUDY Routine 10/25/2023 12:00 AM EST documented in this encounter Results * Film Library- Storage Only Ultrasound Study (10/25/2023 12:00 AM EST) Narrative RAD - 11/26/2023 12:13 PM EST This exam is auto-finalizing. It's purpose is for storage only. Danish Schwartz MD IMG FILM LIBRARY O RDERABLES [facility] [place], [place] documented in this encounter Visit Diagnoses Not on filedocumented in this encounter Care Teams Syrup Blender Relationship Specialty Start Date End Date Catarina Min APRN [address] [place] [address] PCP - General Family Medicine 04/08/21 documented as of this encounter
--- OUTSIDE RECORDS SUMMARY | 2024-05-26 10:29 | XMS_ITS | Clinical Summary ---
Author Organization [facility] [place] [address] Care Team Providers Care Manager Er Name Role Phone Catarina Min APRN Primary Care Provider Allergies No known active allergies Medications Medication Sig Dispensed Refills Start Date End Date Status rizatriptan (MAXALT) 10 mg Tablet TAKE ONE TABLET BY MOUTH ONCE AT ONSET OF HEADACHE AND IF NO RELIEF MAY REPEAT IN 2 HOURS 1 07/28/2018 Active fluocinonide (LIDEX) 0.05 % CreamIndications:[place] nd dermatitis Apply twice daily for 2-3 days at the first sign of an eczema flare. 30 g 3 02/13/2020 Active Additional Information Patient not taking.Reported on 11/23/2023 levonorgestreL (Mirena) 21 mcg/24 hours (8 yrs) 52 mg IUD 1 each by Intrauterine route Continuous (Device). Insertion, fall Active Active Problems Problem Noted Date Diagnosed Date De Quervain's tenosynovitis, right 10/14/2018 Health care maintenance 03/17/2016 s/p R hip labral repair, femoroplasty 04/24/15 (A mes) 04/24/2015 Right hip pain 07/28/2013 Immunizations Name Administration Dates Next Due Hepatitis A Adult (HavRix, Vaqta) 03/17/2016 Pneumococcal Polysaccharide (Pneumovax 23) 02/25 TD Adult 02/26/2004 Tdap 11/06/2011 Typhoid Live, Oral 03/17/2016 Yellow Fever Vaccine 03/17/2016 Family History Medical History Relation Comments Depression Father High Blood Pressure Maternal Grandfather High Cholesterol Maternal Grandfather Depression Mother High Blood Pressure Paternal Grandmother High Cholesterol Paternal Grandmother Relation Status Comments Father Maternal Grandfather Mother Paternal Grandmother Social History Tobacco Use Types Packs/Day Years Used Date Smoking Tobacco: Never Smokeless Tobacco: Never Alcohol Use Standard Drinks/Week Comments Yes 0 (1 standard drink = 0.6 oz pur e alcohol) Sex and Gender Information Value Date Recorded Sex Assigned at Not on file Gender Identity Female 02/13/2020 11:32 AM EDT Sexual Orientation Not on file Last Filed Vital Signs Vital Sign Reading [...] Mass Index 23.95 11/26/2023 11:13 AM EST Plan of Treatment Health Maintenance Due Date Last Done Comments CT Colonography 1980 Colonoscopy 1980 Colorectal Cancer Screening 1980 FIT DNA 1978 FIT 1980 Sigmoidoscopy (10 year) with FIT yearly 1980 Sigmoidoscopy 1980 HIV screen 1996 Hepatitis C Screening 1996 Hepatitis B vaccine (0-59 yrs) (1) 1997 HPV test 2008 PAP Smear 2008 Breast Cancer Share Decision Needed 2018 Breast Cancer screening 2018 Tetanus vaccine 11/06/2021 11/06/2011, 02/26/2004 Covid-19 Vaccine (2022- season) 2023 Influenza (Flu) vaccine (1 o f 1 - Influenza standard series) 05/28/2024 Tdap adult Completed 11/06/2011 Medical Devices Implanted Type Area Temper Mill Roller Device Identifier Shelf Expiration Date Model / Serial / Lot Stanley,Suture ,Bioraptor,2. 3mm ([id number]) - [id number] Implanted:Qty : 3 on 04/24/2015 by Miles Landry MD at [facility] IMPLANTS Right: Hip Cope & Nephew Endosc - [id number] 10/27/2019 [id number] / / [id number] Care Teams Manager Er Relationship Specialty Start Date End Date Catarina Min APRN [address] [place] [address] PCP - General Family Medicine 04/08/21
--- OUTSIDE RECORDS SUMMARY | 2024-05-26 10:29 | XMS_ITS | Encounter Summary ---
Author Organization [facility] Address [facility] [place] [address] Care Team Providers Care Choker Setter Name Role Phone Aileen Gonzalez MD Primary Care Provider [phone] Encounter Details Date Type Department Care Team (Late st Contact Info) Description 02/12/2014 Telephone [place] [phone] Miles Landry MD [facility] [place] [address] Social History Tobacco Use Types Packs/Day Years [...] * Telephone Encounter - Fany Zarco - 02/12/2014 1:17 PM EDT Spoke with patient. She has an injection schedule at the end of this week for her R hip, but has concerns that her L hip/groin is beginning to bother her. From the location she describes this sounds a bit more like groin and adductors. We were able to determine that she has had a significant changein activity over the last couple of weeks as her ewe gave to 5 kids (baby goats) and there care has required an increase in repetitive squatting. She may also have some compensatory movement patterns from her R hip pain contributing as well. We discussed activity modification and assistance in the barn as much as possible, along with ice, NSAIDs, and low impact activity, particularly aquatic exercise if she has access. Advised holding off on running until 3-5 days after R hip injection and once her symptoms on the L have improved. She asked if her R hip labral tear predisposes her to L hip injury. I told her that we don't have any images on the L hip, so it is difficulty to say. Dr. Landry reviewed her R hip xrays as having relatively normal anatomy and no obvious evidence of BART altho ugh some joint space narrowing was noted that could be present on the L as well. I encouraged her to go forward with the injection in the R and begin the above treatments for the L, and see how she feels a couple of weeks after the injection. If she continues to have difficulty she should call backand we will have her scheduled with Dr. Landry for evaluation of the L hip. She was very appreciativeof the call. documented in this encounter Plan of Treatment Not on file documented as of this encounter Visit Diagnoses Not on filedocumented in this encounter Care Teams Choker Setter Relationship Specialty Start Date End Date Aileen Gonzalez MD [address] [place] [address] PCP - General 08/19/10 10/02/18 documented as of this encounter
--- OUTSIDE RECORDS SUMMARY | 2024-05-26 10:29 | XMS_ITS | Encounter Summary ---
Author Organization [facility] Address [facility] [address] [place] [address] Care Team Providers Care Security System Engineer Name Role Phone YeniCatarina hamm RUBY Primary Care Provider [phone] Reason for Visit * Occupational Therapy (Routine) - Closed Specialty Diagnoses / Procedures Referred By Contac t Referred To Contact Occupational Therapy Diagnoses De Quervain's disease (tenosynovitis) Kendra Carlin PA [facility] [place] [address] [facility] [address] [place] [address] Referral ID Status Reason Start Date Expiration Date V isits Requested Visits Authorized [id number] Closed Evaluate and Treat 10/14/2018 10/14/2019 1 1 Encounter Details Date Type Department Care Team (Late st Contact Info) Description 10/14/2018 11:00 AM EST Office Visit Occupational Therapy at [facility] [address] [place] [address] Miles Hagan OT [facility] PHYSICAL MEDICINE & [place] [address] De Quervain's tenosynovitis, right Social History Tobacco Use Types Packs/Day Years [...] as of this encounter Miscellaneous Notes * Initial Evaluation - Miles Hagan, OT - 10/14/2018 11:00 AM EST OCCUPATIONAL THERAPY ORTHOTIC EVALUATION Referral Source: Alexis Dumont MD, Adia Schwab MD Follow-up: 6 weeks Total Treatment time: 32 Minutes Timed Code Treatment Time: 32 minutes OCCUPATIONAL PROFILE: Julieta Sen is a 38 y.o. year old Right hand dominant female who has a chronic history of right first dorsal compartment pain. Julieta Sen is referred to Occupational Therapy for evaluation and treatment to include fabrication of a custom orthosis. Patient presents today alone. Remote right wrist fracture. Date of onset of symptoms: February 2018 Date of surgery: NA Pertinent History and/or Co-morbidities: 1. 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 She has pain with opening containers and certain motions. Global Mental Function: With gross screening of patient???s global mental functions, patient demonstrates orientation to person, place, time, and situation. Patient???s affect/behavior is appropriateand cooperative today. Patient Specific Functional Scale (PSFS) (unable to perform 0/10 - Able to perform without difficulty 10/10) Activity At Evaluation 1.) Opening containers 4 2.) Self care 10 3.) Biking 3 4.) Work 10 Average Score: 6.3 Pain: (Assessed using the Visual Analog Pain Scale) At Rest: 0/10 With Activity: 3/10 Treatment Today: Orthosis - [id number]-Fgrm-Lijrtp Orthotic, Rigid, WO Jts, Custom Fit & Adj ([id number]) Educated patient in etiology and biomechanics as related to patient's symptoms Fabricated a custom right forearm based thumb spica orthosis Instructed in orthosis wear and care, multimedia programmer except hygiene for 2 weeks Range of Motion Exercises: Active wrist and thumb motion within comfort 3 x day. CLINICAL DECISION MAKING: Julieta Sen has a well fitting orthosis post therapy. Julieta Sen is able to independently verbalize and demonstrate the recommended home program following instructions today. Julieta Sen has fair potential for gains with therapy/home program use. Patient knows to call with any questions or concerns. Short Term Goals (to be met by end of the visit today): Date Goal Met: Today 1. Julieta Sen will demonstrate independence with donning and doffing of his orthosis and verbalization of purpose. Goal Status: Meets. Today 2. Julieta Sen will be independent with home exercises as evident with demonstration in therapy. Goal Status: Meets PLAN: Orthosis to provide support and protection to the right wrist first dorsal compartment. She will pursue therapy closer to home if symptoms do not improve or resolve. (X) Juleita Sen participated in the evaluation, collaborated on treatment goals, and agrees tothe treatment plan. documented in this encounter Plan of Treatment Scheduled Referrals Name Type Priority Associated Diagnoses Order Schedule Referral to Occupational Therapy Outpatient Referral Routine De Quervain's disease (tenosynovitis) Ordered: 10/14/2018 documented as of this encounter Visit Diagnoses Diagnosis De Quervain's tenosynovitis, right Radial styloid tenosynovitis documented in this encounter Care Teams Security System Engineer Relationship Specialty Start Date End Date Catarina Min APRN [address] [place] [address] PCP - General Family Medicine 10/03/18 12/03/19 documented as of this encounter
--- OUTSIDE RECORDS SUMMARY | 2024-05-26 10:29 | XMS_ITS | Encounter Summary ---
Author Organization [facility] Address [address] [place] [address] Care Team Providers Care Chemical Inspector Name Role Phone Unavailable Primary Care Provider Unavailabl e Encounter Details Date Type Department Care Team (Late st Contact Info) Description 01/18/2015 Results Only [facility] [phone] Aileen Mccartney MD [address] [place] [address] [place] [address] Social History Tobacco Use Types [...] Diagnosis Comments PAP TEST- RESULT ONLY Routine 01/18/2015 0:00 EDT documented in this encounter Results * PAP TEST- RESULT ONLY (01/18/2015 0:00 EDT) Pathology Report: CYTOPATHOLOGY REPORT Reports generated via electronic interface contain original data; however they are lacking the format of the original report. Caution should be taken when reading/interpreti ng unformatted reports. Name: ? JULIETA SEN ? Accession #: ? [id number] ? : ? 1980 (Age: 34) ??F ?Collect Date: ? 01/18/2015 ? Location: ? [facility] ? Receive Date: ? 01/22/2015 ? Provider: AILEEN MCCARTNEY MD Copy to: ? Final Report SPECIMEN ADEQUACY ? Satisfactory for Evaluation - transformation zone component present GENERAL CATEGORIZATION ? Negative for Intraepithelial Lesion or Malignancy ?? Last Menstrual Period: 01/01/2015 Specimen/Source: ??Pap Test, Cervix/Endocervix, ThinPrep Imaging System with manual evaluation Document reviewed and electronically signed by: ? SUSAN Tate(ASCP) ? Report ??Date: 01/29/2015 13:01 HPV with Pap Test ? Date Ordered: ? 01/29/2015 ? Status: ?? Signed Out ?Date Complete: ? 01/31/2015 ? By: ??System Interface ? Date Reported: ? 01/31/2015 ? Interpretation RESULT: Negative for HPV. No E6 or E7 mRNA is detected from HPV types 16,18,31,33,35, 39,45,51,52,56,58, 59,66, and 68 by research phlebotomist mediated amplification. Comments Document reviewed and electronically signed by: ? System Interface ? Report date: 01/31/2015 By the signature above, the attending physician certifies that he/she has personally conducted a gross and/or microscopic examination of the described specimens and rendered or confirmed the above diagnosis. End of Report [facility] 01/18/2015 01/22/2015 Aileen Mccartney MD PATHOLOGY ORDERABLES [facility] [address] [place] [address] documented in this encounter Visit Diagnoses Not on filedocumented in this encounter
--- OUTSIDE RECORDS SUMMARY | 2024-05-26 10:30 | XMS_ITS | Encounter Summary ---
Author Organization [facility] [place] [address] Care Team Providers Care Chicken Sexer Name Role Phone Aileen Gonzalez MD Primary Care Provider [phone] Encounter Details Date Type Department Care Team (Late st Contact Info) Description 06/02/2013 Orders [place] [address] Miles Landry MD [facility] [place] [address] Social History Tobacco Use Types Packs/Day Years Used Date Smoking Tobacco: Never Assessed Sex and Gender Information Value Date Recorded Sex Assigned at Not on file Gender Identity Female 02/13/2020 11:32 AM EDT Sexual Orientation Not on file documented as of this encounter Plan of Treatment Pending Results Name Type Priority Associated Diagnoses Date /Time Film Library- Storage only MR Hip Imaging Routine 06/02/2013 12:56 PM EDT documented as of this encounter Visit Diagnoses Not on filedocumented in this encounter Care Teams Chicken Sexer Relationship Specialty Start Date End Date Aileen Gonzalez MD [address] [place] [address] PCP - General 08/19/10 10/02/18 documented as of this encounter
--- OUTSIDE RECORDS SUMMARY | 2024-05-26 10:30 | XMS_ITS | Encounter Summary ---
Author Organization [facility] Address [facility] [address] [place] [address] Care Team Providers Care Glove Operator Name Role Phone Aileen Gonzalez MD Primary Care Provider [phone] Encounter Details Date Type Department Care Team (Late st Contact Info) Description 07/26/2013 Orders [place] [address] Miles Landry MD [facility] [place] [address] Hip pain (Primary Dx) Social History Tobacco Use Types Packs/Day Years Used Date Smoking Tobacco: Never Assessed Sex and Gender Information Value Date Recorded Sex Assigned at Not on file Gender Identity Female 02/13/2020 11:32 AM EDT Sexual Orientation Not on file documented as of this encounter Plan of Treatment Not on file documented as of this encounter Results * XR pelvis and lateral hip (07/28/2013 2:54 PM EDT) Anatomical Region Laterality Modality Pelvis, Hip N/A Radiographic Tia ging 07/28/2013 2:54 PM EDT Narrative 07/28/2013 3:50 PM EDT Examination PELVIS+LATERAL HIP/RIGHT Clinical History R hip pain 2nd opinion Comparison None Technique AP view of the pelvis and frogleg lateral view of the right hip were obtained. Findings The right hip joint space is maintained. ??There is a a small marginal osteophytes at the acetabulum. No acute fracture or dislocation. The left hip is normal. ?? Impression Mild osteoarthropathy of the right hip. Procedure Note Olya Rachel MD - 07/28/2013 Examination PELVIS+LATERAL HIP/RIGHT Clinical History R hip pain 2nd opinion Comparison None Technique AP view of the pelvis and frogleg lateral view of the right hip wereobtained. Findings The right hip joint space is maintained. There is a a small marginal osteophytes at the acetabulum. No acute fracture or dislocation. The lefthip is normal. Impression Mild osteoarthropathy of the right hip. Miles Landry MD IMG DX ORDERABLES documented in this encounter Visit Diagnoses Diagnosis Hip pain- Primary Pain in joint, pelvic region and thigh Hip pain Pain in joint, pelvic region and thigh documented in this encounter Care Teams Glove Operator Relationship Specialty Start Date End Date Aileen Gonzalez MD [address] [place] [address] PCP - General 08/19/10 10/02/18 documented as of this encounter
--- OUTSIDE RECORDS SUMMARY | 2024-05-26 10:30 | XMS_ITS | Encounter Summary ---
[facility] Organization [facility] [place] [address] Care Team Providers Care Manager Of Creative Services Name Role Phone Aileen Gonzalez MD Primary Care Provider [phone] Encounter Details Date Type Department Care Team (Late st Contact Info) Description 07/26/2013 Orders [place] [address] Miles Landry MD [facility] [place] [address] Social History Tobacco Use Types Packs/Day Years [...] filedocumented in this encounter Care Teams Manager Of Creative Services Relationship Specialty Start Date End Date Aileen Gonzalez MD [address] [place] [address] PCP - General 08/19/10 10/02/18 documented as of this encounter
--- OUTSIDE RECORDS SUMMARY | 2024-05-26 10:30 | XMS_ITS | Encounter Summary ---
Author Organization [facility] Address [facility] [place] [address] Care Team Providers Care Health Education Aide Name Role Phone Aileen Gonzalez MD Primary Care Provider [phone] Encounter Details Date Type Department Care Team (Latest Contact Info) Description 08/03/2013 1:55 PM EST - 08/03/2013 11:59 PM [facility] Hospital Encounter XRay at [address] [place] [address] CLINIC, Miles Gonzalez MD [facility] [place] [address] Right hip pain Discharge Disposition: Home Social [...] cream Apply topically as needed. 02/13/2020 rizatriptan (MAXALT-STRINGS TEACHER) 10 mg disintegrating tablet 10/01/2005 12/27/2015 documented as of this encounter Procedure Notes * Maritza Angelo MD - 08/03/2013 2:59 PM ESTProcedure(s): ARTHROCENTESIS,DRAIN/INJECT JOINT/BURSA Pre-Procedure Diagnose(s): Right hip pain Post-Procedure Diagnose(s): Right hip pain Julieta Larkin Mckinley [id number] HISTORY: right hip Pain RIGHT HIP INJECTION UNDER FLUOROSCOPY TECHNIQUE: After an extensive [...] the document needle placement. A mixture of Ropivacaine, Lidocaine and triamcinolone acetonide was injected. All needles removed at end of procedure. FINDINGS: 1. Small amount of injected air in the right hip joint space. 2. PAIN SCORE: Before: 4 /10 After: 0 /10 3. Medications: Lidocaine 1% - <5 ml, for subcutaneous anesthesia Ropivacaine HCL 0.5% - 4 ml, Triamciolone Acetonide - 30 mg, Fluoroscopy time: 0.05 sec COMPLICATIONS: None immediate. POST-PROCEDURE CARE: Information regarding monitor of infection, post- procedural pain and management of steroid flare were reviewed with patient. IMPRESSION: Uneventful right hip injection under fluoroscopy. Resident/Fellow: Son Aden Attending: Anamika Angelo M.D. ATTENDING ATTESTATION I, Maritza Angelo MD MS, supervised the resident/fellow during the bernal and critical portions of theprocedure and was immediately available throughout. documented in this encounter Miscellaneous Notes * Miscellaneous - Provider, Scanning - 08/09/2013 11:05 AM EST * Miscellaneous - Provider, Scanning - 08/09/2013 10:36 AM EST documented in this encounter Plan of Treatment Not on file documented as of this encounter Procedures Procedure Name Priority Date/Time Associated Diagnosis Comments XR FLUORO INJECTION FL DRAIN LARGE JT Routine 08/03/2013 2:59 PM EST Right hip pain documented in this encounter Results * XR Fluoro injection FL drain large JT (08/03/2013 2:59 PM EST) Anatomical Region Laterality Modality N/A Radiographic Tia ging 08/03/2013 2:59 PM EST Impressions 08/04/2013 10:59 AM EST IMPRESSION: ?? Uneventful right hip injection under fluoroscopy. ? Resident/Fellow: ?? Son Aden ?Attending: ?? Anamika Angelo M.D. ?ATTENDING ?? ATTESTATION ?I, ?? Maritza Angelo MD MS, supervised the resident/fellow during the bernal and ?? critical portions of the procedure and was immediately available throughout. ?; ?? {CR} ? Film and interpretation reviewed by the attending Narrative 08/04/2013 10:59 AM EST ?Pre-procedure Diagnoses ?; ?; ?? {CR} ? ; ? 1. Right hip pain [719.45] ?; ?? {CR} ? ; ?? {CR} ? ; ? Post-procedure Diagnoses ?; ?? {CR} ? ; ? 1. Right hip pain [719.45] ?; ?? {CR} ? ; ?? {CR} ? ; ? Procedures ?; ?? {CR} ? ; ? 1. ?? ARTHROCENTESIS,DRAIN/INJECT JOINT/BURSA [[id number]] ?; ?? {CR} ? ; ?? {CR} ? ; ? Julieta Larkin Mckinley [id number] ?HISTORY: ?? right hip Pain ? RIGHT ?? HIP INJECTION UNDER FLUOROSCOPY ?TECHNIQUE: ?? After an extensive conversation with the patient regarding risks and ?? benefits, oral and written consent were obtained. The patient was placed ?? supine on the fluoroscopic table. The right hip was prepped and draped in the ?? usual aseptic manner. 1% Lidocaine was used to achieve local anesthesia. ?? Under fluoroscopic guidance, 22 gauge spinal needle ?? was advanced into the joint space. Small amount of air was injected to the ?? document needle placement. A mixture of Ropivacaine, ?? Lidocaine and triamcinolone acetonide was injected. ?? All needles removed at end of procedure. ?FINDINGS: ?1. ?? Small amount of injected air in the right hip joint space. ?2. ?? PAIN SCORE: ?Before: ?? 4 /10 ?After: ?? 0 /10 ? 3. ?? Medications: ?Lidocaine ?? 1% - <5 ml, for subcutaneous anesthesia ? Ropivacaine HCL 0.5% - 4 ml, ?Triamciolone Acetonide ?? - 30 mg, ? Fluoroscopy ?? time: 0.05 sec ?COMPLICATIONS: ?? None immediate. ? POST-PROCEDURE ?? CARE: Information regarding monitor of infection, post- ?? procedural pain and management of steroid flare were reviewed with patient. ? Procedure Note Maritza Angelo MD - 08/04/2013 Pre-procedure Diagnoses ; ; {CR} ; 1.Right hip pain [719.45] ; {CR} ; {CR} ; Post-procedure Diagnoses ; {CR} ; 1. Right hip pain [719.45] ; {CR} ; {CR} ; Procedures ; {CR} ; 1. ARTHROCENTESIS,DRAIN/INJECT JOINT/BURSA [[id number]] ; {CR} ; {CR} ; Julieta Larkin Mckinley [id number] HISTORY: right hipPain RIGHT HIP INJECTION UNDER FLUOROSCOPY TECHNIQUE: After an extensive conversation with the patient regarding risks and benefits, oral andwritten consent were obtained. The patient was placed supine on the fluoroscopic table. The right hip was prepped and draped in the usual aseptic manner.1% Lidocaine was used to achieve local anesthesia. Under fluoroscopicguidance, 22 gauge spinal needle was advanced into the joint space. Small amountof air was injected to the document needle placement. A mixture of Ropivacaine, Lidocaine and triamcinolone acetonide was injected. All needles removedat end of procedure. FINDINGS: 1. Small amount of injected air in the right hip joint space. 2. PAIN SCORE: Before: 4 /10 After:0 /10 3. Medications: Lidocaine 1% - <5 ml, for subcutaneous anesthesia Ropivacaine HCL 0.5% - 4 ml, Triamciolone Acetonide - 30 mg, Fluoroscopy time: 0.05 sec COMPLICATIONS: None immediate. POST-PROCEDURE CARE: Information regarding monitor of infection, post- procedural pain and management of steroid flare were reviewed withpatient. IMPRESSION IMPRESSION: Uneventful right hip injection under fluoroscopy. Resident/Fellow: Son Aden Attending: Anamika Angelo M.D. ATTENDING ATTESTATION I, Maritza Angelo MD MS, [...] MAR Action Action Date Dose Rate Site ropivacaine (PF) 5 mg/mL (0.5 %) 4 mL with triamcinolone acetonide 3 mg injection Intra-articular, ONCE, 1 dose, On Isabel 08/03/13 at 1515 Given 08/03/2013 2:50 PM EST documented in this encounter Care Teams Health Education Aide Relationship Specialty Start Date End Date Aileen Gonzalez MD [address] [place] [address] PCP - General 08/19/10 10/02/18 documented as of this encounter
--- OUTSIDE RECORDS SUMMARY | 2024-05-26 10:30 | XMS_ITS | Encounter Summary ---
[place] [address] Care Team Providers Care Weight Tester Name Role Phone Aileen Gonzalez MD Primary Care Provider [phone] Encounter Details Date Type Department Care Team (Late st Contact Info) Description 07/20/2013 Tele[place] [address] Viridiana Petty Social History Tobacco Use Types Packs/Day Years Used Date Smoking Tobacco: Never Assessed Sex and Gender Information Value Date Recorded Sex Assigned at Not on file Gender Identity Female 02/13/2020 11:32 AM EDT Sexual Orientation Not on file documented as of this encounter Miscellaneous Notes * Telephone Encounter - Vargasreggie Ena E - 07/20/2013 12:08 PM EDT Ask patient to verify the following: Full name: Julieta Sen : 1980 Phone number: [phone] (home) Mailing address: [address] [place] [address] Intake: RIGHT HIP PAIN Is this an injury that happened: NO ?? At work? ?? Playing a sport? ?? If yes to either, what is DOI? Tell me how this how long you've had these symptoms? 16 YEARS Has anyone ever seen you before for this issue? DR. VANN (REQUESTED RECS) [facility] & DR. BRUCE - OF [facility] (RECS IN [place]) Have you tried: YES ?? Physical Therapy - HAD AT [facility] (REQUEST SENT) ?? INJECTION - NONE ?? Other therapies Have you had any of the following studies for this issue? YES ?? X-Ray ?? MRI - [facility] ?? CT Scan ?? LABS Have you seen an Orthopaedic surgeon for the this issue? YES If YES: DR. BRUCE Who did you see? Where were you seen (facility)? When? Phone # Fax# Have you ever had surgery for this issue? NO If YES and different than above: Who performed surgery? Where did you have the surgery (facility)? When? Phone # Fax# If patient is implanted with hardware fixation or joint prosthesis retrieve OPERATIVE REPORT and IMPLANT STICKERS. documented in this encounter Plan of Treatment Not on file documented as of this encounter Visit Diagnoses Not on filedocumented in this encounter Care Teams Weight Tester Relationship Specialty Start Date End Date Aileen Gonzalez MD [address] [place] [address] PCP - General 08/19/10 10/02/18 documented as of this encounter
--- OUTSIDE RECORDS SUMMARY | 2024-05-26 10:30 | XMS_ITS | Encounter Summary ---
Author Organization [facility] Address [facility] [place] [address] Care Team Providers Care Stone Lathe Operator Name Role Phone Aileen Gonzalez MD Primary Care Provider [phone] Encounter Details Date Type Department Care Team (Late st Contact Info) Description 07/28/2013 2:36 PM EDT - 07/28/2013 11:59 PM EDT Hospital Encounter XRay at [address] [place] [address] Hip pain Social History Tobacco Use Types Packs/Day [...] cream Apply topically as needed. 02/13/2020 rizatriptan (MAXALT-MOVIE THEATER MANAGER) 10 mg disintegrating tablet 10/01/2005 12/27/2015 documented as of this encounter Plan of Treatment Not on file documented as of this encounter Procedures Procedure Name Priority Date/Time Associated Diagnosis Comments XR PELVIS AND LATERAL HIP Routine 07/28/2013 2:54 PM EDT Hip pain documented in this encounter Results * XR pelvis and [...] in this encounter Visit Diagnoses Diagnosis Hip pain Pain in joint, pelvic region and thigh documented in this encounter Care Teams Stone Lathe Operator Relationship Specialty Start Date End Date Aileen Gonzalez MD [address] [place] [address] PCP - General 08/19/10 10/02/18 documented as of this encounter
--- OUTSIDE RECORDS SUMMARY | 2024-05-26 10:30 | XMS_ITS | Encounter Summary ---
Author Organization [facility] Address [facility] [facility] [place] [address] Care Team Providers Care Infection Control Preventionist Name Role Phone Aileen Gonzalez MD Primary Care Provider [phone] Reason for Visit * Reason Comments Right Hip Pain Encounter Details Date Type Department Care Team (Late st Contact Info) Description 07/28/2013 3:20 PM EDT Office [place] [id number] Miles Landry MD [facility] [place] [address] Tal Amos PA [facility] [place] [address] Right hip pain (Primary Dx) Discharge Disposition: [...] Sign Reading Time Taken Comments Blood Pressure 104/66 07/28/2013 3:49 PM EDT Pulse 72 07/28/2013 3:49 PM EDT Temperature - - Respiratory Rate - - Oxygen Saturation - - Inhaled Oxygen Concentration - - Weight 66.2 kg (146 lb) 07/28/2013 3:49 PM EDT Height 172.1 cm (5' 7.75) 07/28/2013 3:49 PM ED T Body Mass Index 22.36 07/28/2013 3:49 PM EDT documented in this encounter Progress Notes * Miles Landry MD - 07/28/2013 5:40 PM EDT The patient was seen and examined with RAMOS Vargas, please see his note for complete details on encounter. Briefly this is a 33-year-old female with an approximately 15 year history of right sided low back and more recently groin pain. She had an injury while in college, was treated with physical therapy, eventually this subsided and settled although certainly never resolved completely. This worsened during but again subsided to the point where recently after the of her second child 4 years ago she worked on getting back into shape and was able to run a half marathon. Subsequent to that she has developed worsening anterior pain. She ultimately pursued an MRI scan at the advice of her physical therapist who was working with her on bicipital tendinitis. She comes in today seeking consultation around treatment options for her pain. Physical exam is consistent with impingement/labral tear. She has significant pain with flexion past 90 degrees and pain is exacerbated by flexion, adduction and internal rotation. She also has some discrete posterior pain more in the SI joint which I think is distinct from the anterior pain. I reviewed her MRI scan and I think it is consistent with labral pathology anterolaterally with paralabral cyst formation. Impression: A very pleasant 33-year-old female with signs and symptoms consistent with labral tear and potentially impingement. We are going to proceed with a diagnostic and therapeutic corticosteroid injection with follow up 4 weeks after the injection to review options. * Tal Amos PA - 07/28/2013 4:35 PM EDT PATIENT NAME: Julieta Sen AGE: 33 y.o. MR#: [id number] DATE OF VISIT: 07/28/2013 DATE OF INJURY/ONSET: Chronic STAFF: Dr. Landry CHIEF COMPLAINT: right hip pain HISTORY OF PRESENT ILLNESS Ms. Sen a 33 y.o. year old female comes into clinic today for evaluation of her right hip. The patient has a extensive past medical history of right hip pain dating backto her using college when she was in a an [employer] [employer] program. Patient states, that she is caring a heavy pack at that time where she fell possibly sustaining a hyperextension type of injury. Patient statesthat since sustaining the injury. She seen. Multiple orthopedists the past as well as physical therapist, and chiropractors. Patient states, that she was was released recently seen by Dr. Rhys Cummins at the [facility]. The patient had an MRI done at [facility] prior to her visit with Dr. Cummins. Dr. Cummins referred the patient to Dr. Landry for persistent ongoing right hip pain. The patient states, that Dr. Cummins told her the MRI was inconclusive at the time. She locates the majority of her discomfort along the right groin region. She does report some lateral hip tenderness specifically with running. She also reports some posterior tenderness. Patient states that she has done extensive physical therapy, as well as nontraditional modalities including acupuncture. Patient states that she is unable to run for extended periods of time secondary to hip pain. She states, that the pain is exacerbated with internal rotation of the right hip. She reports taking ibuprofen with some relief. She denies ever having an injection into her hip. PAST SURGICAL HX: No past surgical history on file. PAST MEDICAL HX: Past Medical History Diagnosis Date ??? Allergy ??? Chronic pain ??? Heart disorder ??? Headache ??? Mental or behavioral problem ??? Skin disorder SOCIAL HX: Smoking: Denies Occupation: [employer] Driver ROS: Denies fever, chills, DOMINGO, LOC, SOB, CP, NVD, abd pain, paresthesias, weakness in the extremities, swelling in the joints, h/o RA. No recent hospitalizations PHYSICAL EXAM: Ms. Sne a 33 y.o. year old is alert and oriented. She appears in no acute discomfort and is resting comfortably in a chair in the exam room. Inspection of the patient's right hip reveals no gross deformities. She has mild tenderness over the anterior aspect of the hip. She also does report some lateral hip tenderness with deep palpation over the greater trochanteric region. She has some point tenderness over the paraspinal musculature of the sacrum. Patient has good range of motion with passive flexion to roughly 120??. Patient reports groin pain with flexion past 90??. No pain reported with external rotation. Patient has significant discomfort in the groin with internal rotation, specifically with abduction, and internal rotation. Negative Corrina test. Patient has good strength with straight leg raise equaling 5-/5. No pain withstraight leg raise against resistance over the anterior hip. Negative straight leg raise bilaterally. Sensation is intact along the anterior femoral cutaneous, lateral femoral cutaneous, peroneal, saphenous, and tibial nerve distribution. DP and TP pulses 2+/4 bilateral lower extremities. RADIOLOGICAL STUDIES: An MRI performed at an outside institution. Shows degenerative tearing of theanterior, superior labrum with cystic changes. Possible small CAM lesion noted. ASSESSMENT: 33-year-old female with chronic right hip. Pain. Most likely secondary to degenerative changes of the labrum The patient was seen and the plan was formulated in conjunction with Dr. Landry. PLAN: Ms. Sen and I discussed her radiologic findings and physical exam findings. I spoke with the pt regarding her MRI findings. We discussed in detail the role of intra-articular cortisone injections both diagnostically and therapeutically. At this time think it appropriate to pursue intra-articular fluoroscopy guided injection of her right hip. Patient is in agreement with this. We also hada lengthy conversation regarding the role of arthroscopy. Patient should continue with core, hip flexor and hamstring strengthening exercises. Patient can continue to take nonsteroidal anti-inflammatory medications as needed for pain. We'll see the patient back in 4 wks after her intra-articular injection for discussion of possible arthroscopy. The patient understands to contact us if they have any other questions or concerns. RAMOS LEMOS 07/28/2013 documented in this encounter Plan of Treatment [...] ? ; ? 1. ?? ARTHROCENTESIS,DRAIN/INJECT JOINT/BURSA [[id number]] ?; ?? {CR} ? ; ?? {CR} ? ; ? Julieta Larkin Mckinley [id number] ?HISTORY: ?? right hip Pain ? RIGHT [...] Procedures ; {CR} ; 1. ARTHROCENTESIS,DRAIN/INJECT JOINT/BURSA [[id number]] ; {CR} ; {CR} ; Julieta Larkin Mckinley [id number] HISTORY: right hipPain RIGHT HIP INJECTION UNDER [...] thigh documented in this encounter Care Teams Infection Control Preventionist Relationship Specialty Start Date End Date Aileen Gonzalez MD [address] [place] [address] PCP - General 08/19/10 10/02/18 documented as of this encounter
--- OUTSIDE RECORDS SUMMARY | 2024-05-26 10:30 | XMS_ITS | Encounter Summary ---
Author Organization [facility] Address [facility] [place] [address] Care Team Providers Care Sanitation Inspector Name Role Phone Aileen Gonzalez MD Primary Care Provider [phone] Reason for Visit * Reason Comments Right Hip Pain hip pain Encounter Details Date Type Department Care Team (Late st Contact Info) Description 10/13/2013 2:05 PM EST Office [place] [phone] Miles Landry MD [facility] [place] [address] Right hip pain (Primary Dx) Discharge Disposition: [...] Sign Reading Time Taken Comments Blood Pressure 108/62 10/13/2013 2:09 PM EST Pulse 65 10/13/2013 2:09 PM EST Temperature - - Respiratory Rate - - Oxygen Saturation - - Inhaled Oxygen Concentration - - Weight 66.2 kg (146 lb) 10/13/2013 2:09 PM EST Height 170.2 cm (5' 7) 10/13/2013 2:09 PM EST Body Mass Index 22.87 10/13/2013 2:09 PM EST documented in this encounter Progress Notes * Miles Landry MD - 10/13/2013 6:32 PM EST Very pleasant 33-year-old female returns in followup from her intraarticular injection. I saw her back in July, and her history is well documented in that note. She states that the injection has been extremely helpful. She has been very active up to running relatively high miles without significant pain in the groin. She has noted some gluteal pain from time to time. She wonders today what this means and what she can expect going forward, and whether or not she should be considering surgery on the labral tear. Physical exam today shows that she tolerates flexion nicely up past 120. She does have pain with flexion, adduction, and internal rotation, which causes a pinching feeling in the groin. She has good strength and resisted leg extension and no pain laterally. I did review her MRI scan, which does show cystic change within her labrum, relatively normal bony anatomy. Impression: A 33-year-old female with pain consistent with labral tear, which has responded nicely to an injection, and she is currently not limited in her activities secondary to this. We discussed at length appropriate management for this, and given the effectiveness of the injection and her activity level at this time, I would recommend that she continue with that course. Should she have return of symptoms, she will call. We have given her Fany Zarco's card. I would be happy to see her back to discuss further options versus having her undergo a repeat intraarticular injection. She understands one to two injections a year is reasonable without significant risk for injury to the hip. I would be happy to see her back at any time. documented in this encounter Plan of Treatment Not on file documented as of this encounter Visit Diagnoses Diagnosis Right hip pain- Primary Pain in joint, pelvic region and thigh documented in this encounter Care Teams Sanitation Inspector Relationship Specialty Start Date End Date Aileen Gonzalez MD [address] [place] [address] PCP - General 08/19/10 10/02/18 documented as of this encounter
== END 2024-05-26 10:14 | disposition home or self-care (01) ==
LOC: LBN 10:13
PROVIDERS: PCP Nurse Practitioner Family; Visit Provider Nurse Practitioner Family
DX: Z12.39 Encounter for other screening for malignant neoplasm of breast (principal); Z00.00 Encounter for general adult medical examination without abnormal findings; N83.202 Unspecified ovarian cyst, left side; D25.9 Leiomyoma of uterus, unspecified; N93.9 Abnormal uterine and vaginal bleeding, unspecified
CPT/HCPCS: 88142; 87624

== ENCOUNTER 2024-06-06 01:17 | Outpatient (CLI) | payer OTHER, SELFPAY ==
--- NOTE | 2024-06-06 06:30 | DI.MAMMO_ITS ---
Exam(s) MAMMO SCREENING EXAM: MAMMO SCREENING CLINICAL HISTORY: screening,Z12.39 TECHNIQUE: Mammograms were interpreted according to the usual protocol including computer analysis w [employer] CAD system, tomosynthesis and C-view imaging. COMPARISON: 2018 and 2022 FINDINGS: The breasts are composed of heterogeneously dense fibroglandular densities, Breast Density category C . No suspicious masses or suspicious microcalcifications are seen. No skin thickening or abnormal axillary lymph nodes are seen. There has been no significant change from prior exams. IMPRESSION: BI-RADS Category 1, Negative mammogram. Yearly screening mammography is recommended. Breast Density Category C, heterogeneously Dense. The mammogram demonstrates the patient's breast tissue is dense. Dense breast tissue is very common a nd is not abnormal but dense breast tissue can make it harder to find cancer on a mammogram. Also, de nse breast tissue may increase breast cancer risk. This information about the result of the mammogram report was provided to the patient to raise their awareness. Use this report when you speak with the patient about their risks for breast cancer, which includes their family history. At that time, you may recommend additional screening tests (Ultrasound or MRI) as they might be useful based on their r isk. A negative radiographic report should not delay biopsy if a dominant or clinically suspicious mass is present. Up to ten percent of cancers are not identified on mammography. A negative report may reinforce clinical impression. Adenosis and dense breasts may obscure an underlying neoplasm. False positive reports average 6 to 10%.
== END 2024-06-06 01:37 ==
LOC: DI 01:17
PROVIDERS: PCP Nurse Practitioner Family; Visit Provider Nurse Practitioner Family
DX: Z12.31 Encounter for screening mammogram for malignant neoplasm of breast (principal)
CPT/HCPCS: 77063; 77067

== ENCOUNTER 2024-06-06 07:38 | Outpatient (CLI) | payer OTHER, SELFPAY ==
[2024-06-06 07:39] LABS: Abs Immature Grans 0.02 10^3/uL (0.0-0.06); Absolute Basophil Count 0.03 10^3/uL (0.0-0.2); Absolute Eosinophil Count 0.09 10^3/uL (0.0-0.7); Absolute Lymphocyte Count 1.67 10^3/uL (1.2-3.4); Absolute Monocyte Count 0.31 10^3/uL (0.1-0.8); Absolute Neutrophil Count 2.72 10^3/uL (1.2-6.7); Basophils % 0.6 %; Eosinophils % 1.9 %; HCT 40.5 % (36.0-46.0); HGB 13.2 g/dL (11.2-15.7); Immature Grans % 0.4 %; Lymphocytes % 34.5 %; MCH 29.5 pg (27.0-33.0); MCHC 32.6 % (32.0-36.0); MCV 90 fL (80-95); MPV 10.6 fL (8.0-11.0); Monocytes % 6.4 %; Neutrophils % 56.2 %; Platelet Count 189 10^3/uL (130-400); RBC 4.48 10^6/uL (3.93-5.22); RDW 12.9 % (11.7-14.6); RDW-SD 42.5 fL; WBC 4.84 10^3/uL (4.4-10.8)
[2024-06-06 07:57] LABS: Hemoglobin A1C 5.1 % (<5.7)
[2024-06-06 08:38] LABS: ALT 22 U/L (14-59); AST 16 U/L (15-37); Albumin 3.7 g/dL (3.4-5.0); Alkaline Phosphatase 33 U/L (46-116); Anion Gap 6.4 mmol/L (3-11); BUN 12 mg/dL (7-18); Bilirubin, Total 0.45 mg/dL (0.2-1.0); CO2 26.6 mmol/L (21.0-32.0); Calcium 8.4 mg/dL (8.5-10.1); Chloride 107 mmol/L (98-107); Cholesterol 164 mg/dL (<200); Ferritin 74 ng/mL (8-252); Glucose 96 mg/dL (74-106); HDL Cholesterol 73 mg/dL (40-60); Potassium 4.3 mmol/L (3.5-5.1); Sodium 140 mmol/L (136-145); TSH (W/Ref FT4) 0.73 uIU/mL (0.36-3.74); Total Protein 6.8 g/dL (6.4-8.2)
[2024-06-06 08:50] LABS: Triglyceride <25 mg/dL (<150)
[2024-06-06 08:59] LABS: LDL CHOLESTEROL 86 mg/dL (<100)
[2024-06-06 19:41] LABS: Hepatitis C Ab w Rflx HCV PCR Negative (Negative)
[2024-06-06 19:45] LABS: HIV-1/2 Ag & Ab Screen Negative (Negative)
[2024-06-06 21:03] LABS: HBs Antibody, Quant <3.1 mIU/mL (See Note); Hep B Surface Ab Negative (See Note); Hepatitis B Core Antibody Negative (Negative); Hepatitis B Surface Antigen Negative (Negative)
== END 2024-06-06 07:39 | disposition home or self-care (01) ==
LOC: LBO 07:39
PROVIDERS: PCP Nurse Practitioner Family; Visit Provider Nurse Practitioner Family
DX: G47.00 Insomnia, unspecified (principal); Z11.4 Encounter for screening for human immunodeficiency virus [HIV]; Z11.59 Encounter for screening for other viral diseases
CPT/HCPCS: 36415; 80053; 80061; 83721; 86704; 86706; 86803; 87340; 87389; 82728; 83036; 84443; 85025

== ENCOUNTER 2024-06-16 15:06 | Outpatient (REF) | payer OTHER, SELFPAY ==
--- OUTSIDE RECORDS SUMMARY | 2024-06-16 15:12 | XMS_ITS | Encounter Summary ---
Author Organization [facility] Address [address] [place] [address] Care Team Providers Care Dumper [employer] Name Role Phone Catarina Min PERSONAL TRAINER Primary Care Provider Encounter Details Date Type Department Care Team (Latest Contact Info) Description 05/17/2019 10:31 EDT - 05/17/2019 23:59 EDT Hospital Encounter [address] [address] Unknown, Provider, Discharge Disposition: Home or Self Care Social History Tobacco Use Types Packs/Day Years Used Date Smoking Tobacco: Never Assessed Sex and Gender Information Value Date Recorded Sex Assigned at Not on file Gender Identity Not on file Sexual Orientation Not on file documented as of this encounter Discharge Disposition Disposition Code Departure Means Destination Home or Self Nursing Home documented in this encounter Plan of Treatment Not on file documented as of this encounter Visit Diagnoses Not on filedocumented in this encounter Care Teams Dumper [employer] Relationship Specialty Start Date End Date Catarina Min NP [address] [place] [address] PCP - General 04/12/19 documented as of this encounter
--- OUTSIDE RECORDS SUMMARY | 2024-06-16 15:12 | XMS_ITS | Clinical Summary ---
Author Organization [facility] [place] [address] Care Team Providers Care Infrastructure Director Name Role Phone Catarina Min APRN Primary Care Provider [phone] Allergies No known active allergies Medications Medication [...] Tetanus vaccine 11/06/2021 11/06/2011, 02/26/2004 Covid-19 Vaccine ( season) 2024 Influenza (Flu) vaccine (1 o f 1 - Influenza standard series) 05/28/2024 Tdap adult Completed 11/06/2011 Medical Devices Implanted Type Area Tower Air Traffic Control Specialist Device Identifier Shelf Expiration Date Model / Serial / Lot Mckean,Suture ,Bioraptor,2. 3mm ([id number]) - [id number] Implanted:Qty : 3 on 04/24/2015 by Miles Landry MD at [facility] IMPLANTS Right: Hip Cope & Nephew Endosc - [id number] 10/27/2019 [id number] / / [id number] Care Teams Infrastructure Director Relationship Specialty Start Date End Date Catarina Min APRN [address] [place] [address] PCP - General Family Medicine 04/08/21
--- OUTSIDE RECORDS SUMMARY | 2024-06-16 15:12 | XMS_ITS | Encounter Summary ---
Author Organization [facility] Address [address] [place] [address] Care Team Providers Care Patient Sitter Name Role Phone Unavailable Primary Care Provider Unavailabl e Encounter Details Date Type Department Care Team (Late st Contact Info) Description 03/29/2007 Results Only [facility] conversion [address] [place] [address] [place], [place] [address] Social History Tobacco Use Types Packs/Day Years [...] ? JULIETA SEN ? Accession #: ? [id number] : ? 1980 (Age: 26) ??F ?Collect Date: ? 03/29/2007 Location: ? [facility] ? Receive Date: ? 03/31/2007 Provider: ?AILEEN BRASHER CNM Copy to: ? Specimen/Source: ?ThinPrep Pap Test, Cervix/Endocervix, processed on [employer] ThinPrep Imaging System, with manual evaluation Last [...] Brasher CNM PATHOLOGY ORDERABLES Performing Organization Address City/State/[facility] Co de Phone Number [facility] [address] [place] [address] documented in this encounter Visit Diagnoses Not on filedocumented in this encounter
--- OUTSIDE RECORDS SUMMARY | 2024-06-16 15:12 | XMS_ITS | Encounter Summary ---
Author Organization [facility] Address [address] [place] [address] Care Team Providers Care Blow Pit Operator Name Role Phone Unavailable Primary Care Provider Unavailabl e Encounter Details Date Type Department Care Team (Late st Contact Info) Description 11/06/2011 Results Only [facility] [address] [place], [place] [address] Aileen Mccartney MD [address] [place] [address] [address] [place], [place] [id number] Social History Tobacco Use Types Packs/Day Years [...] ? JULIETA SEN ? Accession #: ? [id number] ? : ? 1980 (Age: 31) ??F [...] the above diagnosis. End of Report [facility] 11/06/2011 11/09/2011 Aileen Mccartney MD PATHOLOGY ORDERABLES [facility] [address] [place] [address] documented in this encounter Visit Diagnoses Not on filedocumented in this encounter
--- OUTSIDE RECORDS SUMMARY | 2024-06-16 15:12 | XMS_ITS | Encounter Summary ---
Author Organization [facility] Address [facility] [place] [address] Care Team Providers Care Librarian Head Name Role Phone Catarina Min APRN Primary Care Provider [phone] Reason for Visit * Reason Comments Establish Care * Consultation (Routine) - Closed Specialty Diagnoses / Procedures Referred By Contisrael t Referred To Contact Gynecology Oncology Diagnoses Left ovarian cyst Abnormal uterine and vaginal bleeding, unspecified Uterine leiomyoma, unspecified location Schedule by November 29 China Parks, DO [address] [place] [address] [place] [address] [facility] Distribution Clerk [address] [place] [address] Referral ID Status Reason Start Date Expiration Date V isits Requested Visits Authorized [id number] Closed Consult, Test & Treat PCP Updated and/or Approved 10/25/2023 04/23/2024 6 6 Encounter Details Date Type Department Care Team (Late st Contact Info) Description 11/26/2023 11:00 AM EST Office Visit [place] [address] Danish Schwartz MD [facility] DR GYNECOLOGIC [place] [address] Adnexal cyst; Abnormal uterine bleeding [...] 11:00 AM EST Division [place] [address] Gynecologic Oncology Clinic New Patient Visit Reason for visit: Right ovarian cyst, referred by China Parks [address] [place] [address] Problem List Patient Active Problem List Diagnosis [...] the past year, was normal defer to PCP/STONE POLISHER MACHINE 2. Colonoscopy: up to date, last August [...] normal. Vitals reviewed. Exam conducted with a deer farm worker present. Laboratory/pathology/imaging studies: As discussed above, in [...] be at the discretion of her primary STONE POLISHER MACHINE. In regards to her abnormal uterine bleeding, [...] Report (11/26/2023 2:56 PM EST) Final Diagnosis [id number] ? Location: 3K The signing pathologist has (i) examined the relevant preparation(s) for the specimen(s) and (ii) rendered or confirmed the diagnosis(es). . ?Surgical Pathology DIAGNOSIS Endometrial biopsy: - Fragments of benign endometrium with marked progestin effect. - Chronic ??endometritis . - No evidence of hyperplasia or malignancy. Electronically signed by: ?Jeremy SILVERMAN Cathie E Verified: ??12/02/2023 16:42 ??Pathologist Performed at: ??-[facility] Dept. of Pathology, [place] [address] Mandarin Teacher: Sera Adames MD, FCAP, ??CLIA Certificate: [id number] SPECIMEN(S) SUBMITTED A - ??Endometrial Biopsy EMB, biopsy CLINICAL INFORMATION Abnormal uterine bleeding SPECIMEN PROCESSING A - Labeled/Fixativ e: Patient demographics, formalin. Quantity/Size: Fragments, 3.5 x 1.8 x 0.6 cm. Tissue Description: Aggregate of red, hemorrhagic tissues admixed with mucus. Sections/Proces sing: Submitted in toto in 2 cassettes labeled A1-A2. ??sns 12/02/2023 4:42 PM EST [facility] ENDOMETRIAL STRUCTURE / Unknown 11/26/2023 2:56 PM EST 11/26/2023 2:56 PM EST Danish Schwartz MD PATHOLOGY/CYTOLOGY ORDERABLES Performing Organization Address City/[facility]/ZIP Co de Phone Number [facility] LABORATORY [place], [place] [id number] [place] [address] [place] [address] * Specimen to Pathology (11/26/2023 2:56 PM EST) AP Specimen 11/26/2023 2:56 PM EST 11/26/2023 2:56 PM EST Narrative [facility] - 11/26/2023 2:56 PM EST Specimen requisition ordered. ??Separate Pathology report to follow Danish Schwartz MD PATHOLOGY/CYTOLOGY ORDERABLES [facility] [place] [address] * Cancer Antigen 125 (11/26/2023 12:44 PM EST) CA 125 12.7 <=38.1 unit/mL [facility] Comment: CA 125 Reference Interval ??Postmenopausal: [...] Lab Danish Schwartz MD CHEMISTRY ORDERABL ES [facility] [place] [address] documented in this encounter Visit Diagnoses Diagnosis Adnexal cyst Other specified symptom associated with female genital organs Abnormal uterine bleeding Unspecified disorder of menstruation and other abnormal bleeding from female genital tract documented in this encounter Care Teams Librarian Head Relationship Specialty Start Date End Date Catarina Min APRN [address] [place] [address] PCP - General Family Medicine 04/08/21 documented as of this encounter
--- OUTSIDE RECORDS SUMMARY | 2024-06-16 15:12 | XMS_ITS | Referral Summary ---
Author Organization [facility] Address [address] [place] [address] Care Team Providers Care Nurse Navigator Name Role Phone Catarina Min DRAWER HARDWARE WORKER Primary Care Provider [phone] Encounters Date Type Department Care Team Description 06/06/2024 Lab Requisition [facility] Pathology & Laboratory [address] [address] Outr Resulting Lab, Provider 06/06/2024 Lab Requisition [facility] Pathology & Laboratory [address] [address] Outr Resulting Lab, Provider 05/30/2024 Lab Requisition [facility] Pathology Laboratory [address] [address] Catarina Min NP Encounter for other general examination from Last 3 Months Social History Tobacco Use Types Packs/Day Years Used Date Smoking Tobacco: Never Assessed Interpersonal Safety Answer Date Record ed Physically Hurt Never 04/28/2020 Verbally Threaten Not on file 04/28/2020 Sex and Gender Information Value Date Recorded Sex Assigned at Not on file Gender Identity Not on file Sexual Orientation Not on file Plan of Treatment Not on file Procedures Procedure Name Priority Date/Time Associated Diagnosis Comments HEPATITIS C AB W REFLEX TO HCV RNA BY PCR Routine 06/06/2024 7:20 EDT HEPATITIS B PROFILE Routine 06/06/2024 7 :20 EDT HIV 1/2 ANTIGEN AND ANTIBODY, 4TH GENERATION Routine 06/06/2024 7:20 EDT PAP TEST Today 05/26/2024 8:45 EDT Encounter for other general examination HPV DNA DETECTION WITH GENOTYPING, PCR Today 05/26/2024 8:45 EDT Encounter for other general examination from Last 3 Months Results * HEPATITIS C AB W REFLEX TO HCV RNA BY PCR (06/06/2024 7:20 EDT) Hep C Antibody Negative Negative 06/06/2024 19:37 EDT [facility] Blood VENOUS BLOOD / Unknown 06/06/2024 7:20 EDT 06/06/2024 17:32 EDT Provider Outr Resulting Lab CHEMISTRY & BLOOD GAS ORDERABLES [facility] [address] [place] [address] * HEPATITIS B PROFILE (06/06/2024 7:20 EDT) Hep B Surface Ag Negative Negative 06/06/20 20:59 EDT [facility] Hep B Surface Ab, Quantitative <3.1 See Note mIU/mL 06/06/2024 20:59 EDT [facility] Comment: Reference Range for Hep B Surface Ab, Quant: Positive: >= 10.0 mIU/mL Negative: ??< 10.0 mIU/mL Patient is presumed to not be immune to infection with Hepatitis B Virus. Hep B Surface Ab, Qualitative Negative See Note 06/06/2024 20:59 EDT [facility] Comment: Reference Range for Hep B Surface Ab, Qual: Unvaccinated: ??Negative Vaccinated: ??Positive Hepatitis B Core Ab, Total Negative Negative 06/06/2024 20:59 EDT [facility] Blood VENOUS BLOOD / Unknown 06/06/2024 7:20 EDT 06/06/2024 17:32 EDT Provider Outr Resulting Lab CHEMISTRY & BLOOD GAS ORDERABLES Performing Organization Address [facility]/ZIP Co de Phone Number [facility] [address] [place], [place] [address] * HIV 1/2 ANTIGEN AND ANTIBODY, 4TH GENERATION (06/06/2024 7:20 EDT) HIV 1 and 2 Antibody/p24 Antigen, 4th Generation Negative Negative 06/06/2024 19:40 EDT [facility] Comment:If acute HIV-1 infec tion is suspected in a high risk patient, submit plasma specimen for HIV-1 RNA quantitation test. Blood VENOUS BLOOD / Unknown 06/06/2024 7:20 EDT 06/06/2024 17:38 EDT Narrative [facility] - 06/06/2024 19:40 EDT Fourth Generation assay performed on the [email or web address] XPT. Provider Outr Resulting Lab IMMUNOLOGY A ND SEROLOGY ORDERABLES Performing Organization Address [facility]/ZIP Co de Phone Number [facility] [address] [place] [address] * PAP TEST (05/26/2024 8:45 EDT) Specimens A. Cervix and/or Endocervix , ThinPrep Imaging System with Manual Evaluation 06/12/2024 15:16 [facility] Specimen Adequacy Satisfactory for Evaluation - transformation zone component present 06/12/2024 15:16 [facility] General Categorization Negative for intraepithelial lesion or malignancy 06/12/2024 15:16 [facility] Attestation . 06/12/2024 15:16 [facility] at 1516 Clinical History See below 06/12/20 24 15:16 [facility] Performing Lab [facility] 06/12/2024 15:16 [facility] Scanned Images 06/12/2024 15:16 [facility] HPV High Risk type 16, PCR Negative 06/12/2024 15:16 EDT [facility] HPV High Risk type 18, PCR Negative 06/12/2024 15:16 EDT [facility] HPV Other High Risk Types, PCR Negative The following Other High Risk HPV types were not detected: 31,33, 35, 39, 45, 51, 52, 56, 58, 59, 66 and 68. 06/12/2024 15:16 EDT [facility] Pap Test CERVIX UTERI STRUCTURE / Unknown 05/26/2024 8:45 EDT 05/30/2024 14:46 EDT Catarina Min NP PATHOLOGY ORDERABLES Performing Organization Address City/[facility]/ZIP Co de Phone Number [facility] [address] [place] [address] * HPV DNA DETECTION WITH GENOTYPING, PCR (05/26/2024 8:45 EDT) HPV High Risk type 16, PCR Negative Negative 06/12/2024 15:16 EDT [facility] HPV High Risk type 18, PCR Negative Negative 06/12/2024 15:16 EDT [facility] HPV other High Risk types, PCR Negative Negative 06/12/2024 15:16 EDT [facility] Comment: The following Other High Risk HPV types were not detected: ??31,33, 35, 39, 45, 51, 52, 56, 58, 59, 66 and 68. Pap Test CERVIX UTERI STRUCTURE / Unknown 05/26/2024 8:45 EDT 06/09/2024 12:11 EDT Catarina Min NP MICROBIOLOGY - GENER AL ORDERABLES [facility] [address] [place] [phone] from Last 3 Months Care Teams Nurse Navigator Relationship Specialty Start Date End Date Catarina Min NP [address] [place] [address] [address] [place] [address] [facility] - General 04/12/19
--- OUTSIDE RECORDS SUMMARY | 2024-06-16 15:12 | XMS_ITS | Encounter Summary ---
Author Organization [facility] Address [address] [place] [address] Care Team Providers Care Leather Stitcher Name Role Phone Unknown, Provider Primary Care Provider [phone] Encounter Details Date Type Department Care Team (Latest Contact Info) Description 04/29/2018 15:25 EDT - 04/29/2018 23:59 EDT Hospital Encounter [address] [address] Unknown, Provider, Discharge Disposition: Home or Self Care Social History Tobacco Use Types Packs/Day Years Used Date Smoking Tobacco: Never Assessed Sex and Gender Information Value Date Recorded Sex Assigned at Not on file Gender Identity Not on file Sexual Orientation Not on file documented as of this encounter Discharge Disposition Disposition Code Departure Means Destination Home or Self Shelter documented in this encounter Plan of Treatment Not on file documented as of this encounter Visit Diagnoses Not on filedocumented in this encounter Care Teams Leather Stitcher Relationship Specialty Start Date End Date Unknown, Provider, PCP - General 08/09/15 04/11/19 documented as of this encounter
--- OUTSIDE RECORDS SUMMARY | 2024-06-16 15:12 | XMS_ITS | Encounter Summary ---
[place] [address] Care Team Providers Care Business Information Manager Name Role Phone Catarina Min APRN [...] on filedocumented in this encounter Care Teams Business Information Manager Relationship Specialty Start Date End Date Catarina Min APRN [address] [place] [address] PCP - General Family Medicine 04/08/21 documented as of this encounter
--- OUTSIDE RECORDS SUMMARY | 2024-06-16 15:12 | XMS_ITS | Encounter Summary ---
Author Organization [facility] Address [address] [place] [address] Care Team Providers Care Global Product Manager Name Role Phone Catarina Min FIELD CANE SCALER HELPER Primary Care Provider [phone] Encounter Details Date Type Department Care Team (Late st Contact Info) Description 05/30/2024 Lab Requisition [facility] Pathology & Laboratory Medicine - [address] [address] Catarina Min NP [address] [place] [phone] Encounter for other general examination Social History [...] Date/Time Associated Diagnosis Comments PAP TEST Today 05/26/2024 8:45 EDT Encounter for other general examination HPV DNA DETECTION WITH GENOTYPING, PCR Today 05/26/2024 8:45 EDT Encounter for other general examination documented in this encounter Results * HPV DNA DETECTION WITH GENOTYPING, PCR (05/26/2024 8:45 EDT) HPV High Risk type 16, PCR Negative Negative 06/12/2024 15:16 EDT [facility] HPV High Risk type 18, PCR Negative Negative 06/12/2024 15:16 [facility] HPV other High Risk types, PCR Negative Negative 06/12/2024 15:16 [facility] Comment: The following Other High Risk HPV types were not detected: ??31,33, 35, 39, 45, 51, 52, 56, 58, 59, 66 and 68. Pap Test CERVIX UTERI STRUCTURE / Unknown 05/26/2024 8:45 EDT 06/09/2024 12:11 EDT Catarina Min NP MICROBIOLOGY - GENER AL ORDERABLES [facility] [address] [place], [place] [id number] * PAP TEST (05/26/2024 8:45 EDT) Specimens A. Cervix and/or Endocervix , ThinPrep Imaging System with Manual Evaluation 06/12/2024 15:16 [facility] Specimen Adequacy Satisfactory for Evaluation - transformation zone component present 06/12/2024 15:16 [facility] General Categorization Negative for intraepithelial lesion or malignancy 06/12/2024 15:16 [facility] Attestation . 06/12/2024 15:16 [facility] at 1516 Clinical History See below 06/12/20 24 15:16 [facility] Performing Lab [facility] 06/12/2024 15:16 [facility] Scanned Images 06/12/2024 15:16 [facility] HPV High Risk type 16, PCR Negative 06/12/2024 15:16 [facility] HPV High Risk type 18, PCR Negative 06/12/2024 15:16 [facility] HPV Other High Risk Types, PCR Negative The following Other High Risk HPV types were not detected: 31,33, 35, 39, 45, 51, 52, 56, 58, 59, 66 and 68. 06/12/2024 15:16 EDT [facility] Pap Test CERVIX UTERI STRUCTURE / Unknown 05/26/2024 8:45 EDT 05/30/2024 14:46 EDT Catarina Min NP PATHOLOGY ORDERABLES Performing Organization Address City/State/[facility] Co de Phone Number [facility] [address] [place] [phone] documented in this encounter Visit Diagnoses Diagnosis Encounter for other general examination documented in this encounter Care Teams Global Product Manager Relationship Specialty Start Date End Date Catarina Min NP [address] [place] [address] PCP - General 04/12/19 documented as of this encounter
--- OUTSIDE RECORDS SUMMARY | 2024-06-16 15:12 | XMS_ITS | Encounter Summary ---
Author Organization [facility] Address [address] [place] [address] Care Team Providers Care Stretching Machine Operator Name Role Phone Catarina Min DIESEL ENGINE PIPE FITTER Primary Care Provider [phone] Encounter Details Date Type Department Care Team (Late st Contact Info) Description 06/06/2024 Lab Requisition [facility] Pathology & Laboratory Medicine - [address] [address] Outr Resulting Lab, Provider Social History Tobacco Use Types Packs/Day Years [...] 7:20 EDT HEPATITIS B PROFILE Routine 06/06/2024 7:20 EDT documented in this encounter Results * HEPATITIS C AB W REFLEX TO HCV RNA BY PCR (06/06/2024 7:20 EDT) Hep C Antibody Negative Negative 06/06/2024 19:37 EDT [facility] Blood VENOUS BLOOD / Unknown 06/06/2024 7:20 EDT 06/06/2024 17:32 EDT Provider Outr Resulting Lab CHEMISTRY & BLOOD GAS ORDERABLES Performing Organization Address [facility] Co de Phone Number [facility] [address] [place] [address] * HEPATITIS B PROFILE (06/06/2024 7:20 EDT) Hep B Surface Ag Negative Negative 06/06/20 20:59 EDT [facility] Hep B Surface Ab, Quantitative <3.1 See Note mIU/mL 06/06/2024 20:59 EDT [facility] Comment: Reference Range for Hep B Surface Ab, Quant: Positive: >= 10.0 mIU/mL Negative: ??< 10.0 mIU/mL Patient is presumed to not be immune to infection with Hepatitis B Virus. Hep B Surface Ab, Qualitative Negative See Note 06/06/2024 20:59 EDT [facility] Comment: Reference Range for Hep B Surface Ab, Qual: Unvaccinated: ??Negative Vaccinated: ??Positive Hepatitis B Core Ab, Total Negative Negative 06/06/2024 20:59 EDT [facility] Blood VENOUS BLOOD / Unknown 06/06/2024 7:20 EDT 06/06/2024 17:32 EDT Provider Outr Resulting Lab CHEMISTRY & BLOOD GAS ORDERABLES Performing Organization Address [facility] Co de Phone Number [facility] [address] [place], [place] [phone] documented in this encounter Visit Diagnoses Not on filedocumented in this encounter Care Teams Stretching Machine Operator Relationship Specialty Start Date End Date Catarina Min NP [address] [place] [phone] PCP - General 04/12/19 documented as of this encounter
--- OUTSIDE RECORDS SUMMARY | 2024-06-16 15:12 | XMS_ITS | Encounter Summary ---
Author Organization [facility] Address [address] [place] [address] Care Team Providers Care Beverage Server Name Role Phone Catarina Min SENIOR INVESTMENT MANAGER Primary Care Provider [phone] Encounter Details Date Type Department Care Team (Late st Contact Info) Description 06/06/2024 Lab Requisition [facility] Pathology & Laboratory Medicine - [address] [address] Outr Resulting Lab, Provider Social History Tobacco [...] Procedure Name Priority Date/Time Associated Diagnosis Comments HIV 1/2 ANTIGEN AND ANTIBODY, 4TH GENERATION Routine 06/06/2024 7:20 EDT documented in this encounter Results * HIV 1/2 ANTIGEN AND ANTIBODY, 4TH GENERATION (06/06/2024 7:20 EDT) HIV 1 and 2 Antibody/p24 Antigen, 4th Generation Negative Negative 06/06/2024 19:40 EDT [facility] Comment:If acute HIV-1 infec tion is suspected in a high risk patient, submit plasma specimen for HIV-1 RNA quantitation test. Blood VENOUS BLOOD / Unknown 06/06/2024 7:20 EDT 06/06/2024 17:38 EDT Narrative [facility] - 06/06/2024 19:40 EDT Fourth Generation assay performed on the [employer] XPT. Provider Outr Resulting Lab IMMUNOLOGY A ND SEROLOGY ORDERABLES [facility] [address] [place] [address] documented in this encounter Visit Diagnoses Not on filedocumented in this encounter Care Teams Beverage Server Relationship Specialty Start Date End Date Catarina Min NP [address] [place] [address] [address] [place] [phone] PCP - General 04/12/19 documented as of this encounter
--- OUTSIDE RECORDS SUMMARY | 2024-06-16 15:12 | XMS_ITS | Encounter Summary ---
Author Organization [facility] Address [address] [place] [address] Care Team Providers Care Turret Lathe Tender Name Role Phone Unavailable Primary Care Provider Unavailabl e Encounter Details Date Type Department Care Team (Late st Contact Info) Description 08/30/2009 Orders Only [facility] ([facility]) [address] [place], [place] [address] Aileen Gonzalez MD [address] [place] [address] [address] [place], [place] [phone] Social History Tobacco Use Types Packs/Day Years [...] MD MICROBIOLOGY - GENER AL ORDERABLES [facility] [address] [place] [address] * CYTOPATHOLOGY (08/30/2009 0:00 EST) Pathology Report: CYTOPATHOLOGY REPORT ? Reports generated via electronic interface contain original data; ? however they are lacking the format of the original report. ? Caution should be taken when reading/interpreti ng unformatted reports. ? Name: ? JULIETA TOMLINSON ? Accession #: ? [id number] ? : ? 1980 (Age: 29) ??F ?Collect Date: ? 08/30/2009 ? Location: ? [facility] ? Receive Date: ? 09/02/2009 ? Provider: ?AILEEN DAYISMAN MD ? Copy to: ? Specimen/Source: ?Pap [...] MD PATHOLOGY ORDERABLES [facility] [address] [place] [address] documented in this encounter Visit Diagnoses Not on filedocumented in this encounter
--- OUTSIDE RECORDS SUMMARY | 2024-06-16 15:12 | XMS_ITS | Encounter Summary ---
Author Organization [facility] Address [address] [place] [address] Care Team Providers Care Environmental Assistant Name Role Phone Unknown, Provider Primary Care Provider [phone] Encounter Details Date Type Department Care Team (Late st Contact Info) Description 04/06/2018 Results Only [facility] [phone] Catarina York, IT TELECOM TECHNICIAN [address] [place] [address] Social History Tobacco Use Types [...] ? JULIETA SEN ? Accession #: ? [id number] ? : ? 1980 (Age: 37) ??F ?Collect Date: ? 04/06/2018 ? Location: ? [facility] ? Receive Date: ? 04/08/2018 ? Provider: CATARINA YORK IT TELECOM TECHNICIAN Copy to: ? Final Report SPECIMEN ADEQUACY ? Satisfactory for Evaluation - transformation zone component present GENERAL CATEGORIZATION ? Epithelial Cell Abnormality INTERPRETATION ? Squamous Cell Abnormality - Low grade squamous intraepithelial lesion (LSIL). EDUCATIONAL NOTES/RECOMMENDATI ONS ? [facility] recommends following ASCCP's 2012 Updated Consensus [...] 33,35,39,45,51,52, 56,58,59,66, and 68 is detected by therapeutic recreation assistant mediated amplification. High and intermediate risk HPV [...] the above diagnosis. End of Report [facility] 04/06/2018 04/08/2018 Catarina York NP PATHOLOGY ORDERABLES [facility] [address] [place] [address] documented in this encounter Visit Diagnoses Not on filedocumented in this encounter Care Teams Environmental Assistant Relationship Specialty Start Date End Date Unknown, Provider, PCP - General 08/09/15 04/11/19 documented as of this encounter
--- OUTSIDE RECORDS SUMMARY | 2024-06-16 15:12 | XMS_ITS | Clinical Summary ---
Author Organization [facility] Address [address] [place] [address] Care Team Providers Care Counsellors Name Role Phone Catarina Min AUTOMOTIVE SERVICE CASHIER Primary Care Provider [phone] Encounters Date Type Department Care Team Description 06/06/2024 Lab Requisition [facility] [address] [address] Outr Resulting Lab, Provider 06/06/2024 Lab Requisition [facility] [address] [address] Outr Resulting Lab, Provider 05/30/2024 Lab Requisition [facility] [address] [address] Catarina Min NP Encounter for other general [...] Maintenance Due Date Last Done Comments Hepatitis B Vaccine (1 of 3 - 19+ 3-dose series) 07/08 COVID-19 Vaccine ( season) 2024 Hepatitis C Screen Completed 06/06/2024 Procedures Procedure Name Priority Date/Time Associated Diagnosis [...] C Antibody Negative Negative 06/06/2024 19:37 EDT [facility] Blood VENOUS BLOOD / Unknown 06/06/2024 7:20 EDT 06/06/2024 17:32 EDT Provider Outr Resulting Lab CHEMISTRY & BLOOD GAS ORDERABLES [facility] [address] [place] [address] * HEPATITIS B PROFILE (06/06/2024 7:20 EDT) Hep B Surface Ag Negative Negative 06/06/20 24 20:59 EDT [facility] Hep B Surface Ab, Quantitative <3.1 See Note mIU/mL 06/06/2024 20:59 EDT [facility] Comment: Reference Range for Hep B Surface Ab, Quant: Positive: >= 10.0 mIU/mL Negative: ??< 10.0 mIU/mL Patient is presumed to not be immune to infection with Hepatitis B Virus. Hep B Surface Ab, Qualitative Negative See Note 06/06/2024 20:59 EDT [facility] Comment: Reference Range for Hep B Surface Ab, Qual: Unvaccinated: ??Negative Vaccinated: ??Positive Hepatitis B Core Ab, Total Negative Negative 06/06/2024 20:59 EDT [facility] Blood VENOUS BLOOD / Unknown 06/06/2024 7:20 EDT 06/06/2024 17:32 EDT Provider Outr Resulting Lab CHEMISTRY & BLOOD GAS ORDERABLES Performing Organization Address [facility] Co de Phone Number [facility] [address] [place], [place] [phone] * HIV 1/2 ANTIGEN AND ANTIBODY, 4TH GENERATION (06/06/2024 7:20 EDT) HIV 1 and 2 Antibody/p24 Antigen, 4th Generation Negative Negative 06/06/2024 19:40 EDT [facility] Comment:If acute HIV-1 infec tion is suspected in a high risk patient, submit plasma specimen for HIV-1 RNA quantitation test. Blood VENOUS BLOOD / Unknown 06/06/2024 7:20 EDT 06/06/2024 17:38 EDT Narrative [facility] - 06/06/2024 19:40 EDT Fourth Generation assay performed on the [employer]aur XPT. Provider Outr Resulting Lab IMMUNOLOGY A ND SEROLOGY ORDERABLES Performing Organization Address [facility]/ZIP Co de Phone Number [facility] [address] [place] [phone] * PAP TEST (05/26/2024 8:45 EDT) Specimens A. Cervix and/or Endocervix , ThinPrep Imaging System with Manual Evaluation 06/12/2024 15:16 EDT [facility] Specimen Adequacy Satisfactory for Evaluation - transformation zone component present 06/12/2024 15:16 EDT [facility] General Categorization Negative for intraepithelial lesion or malignancy 06/12/2024 15:16 T [facility] Attestation . 06/12/2024 15:16 T [facility] at 1516 Clinical History See below 06/12/20 24 15:16 EDT [facility] Performing Lab [facility] 06/12/2024 15:16 EDT [facility] Scanned Images 06/12/2024 15:16 EDT [facility] HPV High Risk type 16, PCR Negative 06/12/2024 15:16 EDT [facility] HPV High Risk type 18, PCR Negative 06/12/2024 15:16 EDT [facility] HPV Other High Risk Types, PCR Negative The following Other High Risk HPV types were not detected: 31,33, 35, 39, 45, 51, 52, 56, 58, 59, 66 and 68. 06/12/2024 15:16 EDT [facility] Pap Test CERVIX UTERI STRUCTURE / Unknown 05/26/2024 8:45 EDT 05/30/2024 14:46 EDT Catarina Min NP PATHOLOGY ORDERABLES Performing Organization Address [facility] Co de Phone Number [facility] [address] [place] [address] * HPV DNA DETECTION WITH GENOTYPING, PCR (05/26/2024 8:45 EDT) HPV High Risk type 16, PCR Negative Negative 06/12/2024 15:16 EDT [facility] HPV High Risk type 18, PCR Negative Negative 06/12/2024 15:16 EDT [facility] HPV other High Risk types, PCR Negative Negative 06/12/2024 15:16 EDT [facility] Comment: The following Other High Risk HPV types were not detected: ??31,33, 35, 39, 45, 51, 52, 56, 58, 59, 66 and 68. Pap Test CERVIX UTERI STRUCTURE / Unknown 05/26/2024 8:45 EDT 06/09/2024 12:11 EDT Catarina Min NP MICROBIOLOGY - GENER AL ORDERABLES Performing Organization Address City/[facility]/ZIP Co de Phone Number [facility] [address] [place] [phone] from Last 3 Months Care Teams Counsellors Relationship Specialty Start Date End Date Catarina Min NP [address] [place] [address] [address] [place] [phone] PCP - General 04/12/19
--- OUTSIDE RECORDS SUMMARY | 2024-06-16 15:12 | XMS_ITS | Encounter Summary ---
Author Organization [facility] Address [address] [place] [address] Care Team Providers Care Product Support Analyst Name Role Phone Unknown, Provider Primary Care Provider [phone] Encounter Details Date Type Department Care Team (Late st Contact Info) Description 04/05/2019 Results Only [facility] [phone] Catarina York, TANNERY WORKER [address] [place] [address] Social History Tobacco Use Types [...] ? JULIETA SEN ? Accession #: ? [id number] ? : ? 1980 (Age: 38) ??F ?Collect Date: ? 04/05/2019 ? Location: ? [facility] ? Receive Date: ? 04/07/2019 ? Provider: CATARINA YORK TANNERY WORKER Copy to: ? Final Report SPECIMEN ADEQUACY ? Satisfactory for Evaluation - transformation zone component present GENERAL CATEGORIZATION ? Epithelial Cell Abnormality INTERPRETATION ? Squamous Cell Abnormality - Low grade squamous intraepithelial lesion (LSIL). EDUCATIONAL NOTES/RECOMMENDATI ONS ? [facility] recommends following ASCCP's 2012 Updated Consensus [...] 33,35,39,45,51,52, 56,58,59,66, and 68 is detected by family independence case manager mediated amplification. High and intermediate risk HPV [...] confirmed the above diagnosis. End of Report [facility] 04/05/2019 04/07/2019 Catarina York NP PATHOLOGY ORDERABLES [facility] [address] [place] [address] documented in this encounter Visit Diagnoses Not on filedocumented in this encounter Care Teams Product Support Analyst Relationship Specialty Start Date End Date Unknown, Provider, PCP - General 08/09/15 04/11/19 documented as of this encounter
--- OUTSIDE RECORDS SUMMARY | 2024-06-16 15:12 | XMS_ITS | Encounter Summary ---
Author Organization [facility] Address [address] [place] [address] Care Team Providers Care Mold Builder Name Role Phone Unknown, Provider Primary Care Provider [phone] Encounter Details Date Type Department Care Team (Latest Contact Info) Description 04/06/2018 10:19 EDT - 04/06/2018 23:59 EDT Hospital Encounter [address] [address] Unknown, Provider, Discharge Disposition: Home or Self Care Social History Tobacco Use Types Packs/Day Years Used Date Smoking Tobacco: Never Assessed Sex and Gender Information Value Date Recorded Sex Assigned at Not on file Gender Identity Not on file Sexual Orientation Not on file documented as of this encounter Discharge Disposition Disposition Code Departure Means Destination Home or Self Snf documented in this encounter Plan of Treatment Not on file documented as of this encounter Visit Diagnoses Not on filedocumented in this encounter Care Teams Mold Builder Relationship Specialty Start Date End Date Unknown, Provider, PCP - General 08/09/15 04/11/19 documented as of this encounter
--- OUTSIDE RECORDS SUMMARY | 2024-06-16 15:12 | XMS_ITS | Encounter Summary ---
Author Organization [facility] Address [address] [place] [address] Care Team Providers Care Filbert Grower Name Role Phone Unknown, Provider Primary Care Provider [phone] Encounter Details Date Type Department Care Team (Late st Contact Info) Description 04/29/2018 Results Only [facility] [phone] Zulma Metzger MD [address] [place] [address] Social History Tobacco Use Types Packs/Day Years [...] ? JULIETA SEN ? Accession #: ? [id number] ? : ? 1980 (Age: 37) ??F ? Collect Date: ? 04/29/2018 ? Location: ? [facility] ? Receive Date: ? 05/02/2018 ? Provider: ZULMA METZGER MD Copy to: ? Final Pathologic Diagnosis: ENDOCERVIX, CURETTAGE: - Benign endocervical tissue. See comment. Comment: The referring Pap test ([id number]) has been reviewed, and the diagnosis of [...] (ASCP) 05/02/2018 3:[address] [facility] 04/29/2018 15:4 7 EDT 05/02/2018 15:47 EDT Zulma Metzger MD PATHOLOGY ORDERABL ES [facility] [address] [place] [address] documented in this encounter Visit Diagnoses Not on filedocumented in this encounter Care Teams Filbert Grower Relationship Specialty Start Date End Date Unknown, Provider, PCP - General 08/09/15 04/11/19 documented as of this encounter
--- OUTSIDE RECORDS SUMMARY | 2024-06-16 15:12 | XMS_ITS | Encounter Summary ---
Author Organization [facility] Address [address] [place] [address] Care Team Providers Care Heading Matcher And Assembler Name Role Phone Unavailable Primary Care Provider Unavailabl e Encounter Details Date Type Department Care Team (Late st Contact Info) Description 04/12/2008 Before [facility] Converted Visit (Maple) [facility] - Maple conversion [address] [place] [address] Aileen Bras[facility] [place] [phone] Social History Tobacco Use Types Packs/Day Years [...] ? JULIETA SEN ? Accession #: ? [id number] ? : ? 1980 (Age: 27) ??F [...] 12:48 ? End of Report ? [facility] 04/12/2008 04/12/2008 Aileen Brasher CNM PATHOLOGY ORDERABLES Performing Organization Address City/State/[facility] Co de Phone Number [facility] [address] [place] [address] documented in this encounter Visit Diagnoses Not on filedocumented in this encounter
--- OUTSIDE RECORDS SUMMARY | 2024-06-16 15:12 | XMS_ITS | Encounter Summary ---
[place] [address] Care Team Providers Care Restaurant Managing Partner Name Role Phone Catarina Min APRN Primary Care Provider [phone] Reason for Referral * Consultation (Routine) - Closed Specialty Diagnoses / Procedures Referred By Contac t Referred To Contact Gynecology Oncology Diagnoses Left ovarian cyst Abnormal uterine and vaginal bleeding, unspecified Uterine leiomyoma, unspecified location Schedule by November 29 China Parks DO [address] [place] [address] [place] [address] [facility] [employer] [address] [place] [phone] Referral ID Status Reason Start Date Expiration Date V isits Requested Visits Authorized [id number] Closed Consult, Test & Treat PCP Updated and/or Approved 10/25/2023 04/23/2024 6 6 Encounter Details Date Type Department Care Team (Late st Contact Info) Description 10/29/2023 Transcribe Orders eDH Incoming Referrals [phone] China Parks DO [address] [place] [address] [address] [place], [place] [phone] Left ovarian cyst; Abnormal uterine and vaginal [...] location documented in this encounter Care Teams Restaurant Managing Partner Relationship Specialty Start Date End Date YeniCatarina hamm APRN [address] [facility] [facility] [address] [place] [address] PCP - General Family Medicine 04/08/21 documented as of this encounter
--- OUTSIDE RECORDS SUMMARY | 2024-06-16 15:12 | XMS_ITS | Encounter Summary ---
Author Organization [facility] Address [address] [place] [address] Care Team Providers Care Proposal Engineer Name Role Phone Unknown, Provider Primary Care Provider [phone] Encounter Details Date Type Department Care Team (Latest Contact Info) Description 04/05/2019 19:05 EDT - 04/05/2019 23:59 EDT Hospital Encounter [address] [address] Unknown, Provider, Discharge Disposition: Home or Self Care Social History Tobacco Use Types Packs/Day Years Used Date Smoking Tobacco: Never Assessed Sex and Gender Information Value Date Recorded Sex Assigned at Not on file Gender Identity Not on file Sexual Orientation Not on file documented as of this encounter Discharge Disposition Disposition Code Departure Means Destination Home or Self Longterm documented in this encounter Plan of Treatment Not on file documented as of this encounter Visit Diagnoses Not on filedocumented in this encounter Care Teams Proposal Engineer Relationship Specialty Start Date End Date Unknown, Provider, PCP - General 08/09/15 04/11/19 documented as of this encounter
--- OUTSIDE RECORDS SUMMARY | 2024-06-16 15:12 | XMS_ITS | Encounter Summary ---
Author Organization [facility] Address [address] [place] [address] Care Team Providers Care Energy Rater Name Role Phone Catarina York MARKETING AND PUBLIC RELATIONS MANAGER Primary Care Provider [phone] Encounter Details Date Type Department Care Team (Late st Contact Info) Description 05/17/2019 Results Only [facility] [phone] Annabelle Gomez MD [address] [place] [address] [address] [place], [place] [address] Social History Tobacco Use Types Packs/Day Years [...] taken when reading/interpreting unformatted reports. Name: ? JULIETA TOMLINSON ? Accession #: ? [id number] ? : ? 1980 (Age: 38) ??F ? Collect Date: ? 05/17/2019 ? Location: ? [facility] ? Receive Date: ? 05/17/2019 ? Provider: ANNABELLE GOMEZ MD Copy to: CATARINA YORK MARKETING AND PUBLIC RELATIONS MANAGER ? Final Pathologic Diagnosis: ENDOCERVIX, CURETTAGE: - Minute detached fragments of squamous epithelium with low grade squamous intraepithelial lesion (SHAHRZAD I). See comment. - Background fragments of benign endocervical tissue. Comment: Deeper sections have been examined. Cash Checker slides of this case were reviewed at [...] (ASCP) 05/18/2019 9:47 AM End of Report [facility] 05/17/2019 8:56 EDT 05/17/2019 8:56 EDT Annabelle Gomez MD PATHOLOGY ORDERABLES [facility] [address] [place] [address] documented in this encounter Visit Diagnoses Not on filedocumented in this encounter Care Teams Energy Rater Relationship Specialty Start Date End Date Catarina York NP [address] [place] [phone] PCP - General 04/12/19 documented as of this encounter
--- OUTSIDE RECORDS SUMMARY | 2024-06-16 15:12 | XMS_ITS | Encounter Summary ---
Author Organization [facility] Address [address] [place] [address] Care Team Providers Care Water Leak Repairer Name Role Phone Catarina Min NP Primary Care Provider Encounter Details Date Type Department Care Team (Late st Contact Info) Description 05/19/2021 Lab Requisition [facility] Pathology & Laboratory Medicine - [address] [address] Catarina Min NP [address] [place] [id number] Encounter for other general examination Social History [...] Risk types, PCR Negative Negative 06/04/2021 7:15 T [facility] Comment:No E6 or E7 mRNA is detected from HPV types 16,18,31,33,35,39,45,51,52,56,58,59,66, and 68 by certified medical transcriptionist mediated amplification. Papanicolaou smear specimen (specimen) CERVIX UTERI STRUCTURE / Unknown 05/16/2021 13:30 EDT 05/30/2021 13:13 EDT Catarina Min TEST PREPARATION TUTOR MICROBIOLOGY - GENER AL ORDERABLES [facility] [address] [place] [address] * PAP TEST (05/16/2021 13:30 EDT) Specimens A. Cervix and/or Endocervix , ThinPrep Imaging System with Manual Evaluation 06/04/2021 7:15 [facility] Specimen Adequacy Satisfactory for Evaluation - transformation zone component present 06/04/2021 7:15 [facility] General Categorization Negative for intraepithelial lesion or malignancy 06/04/2021 7:15 [facility] Descriptive Diagnosis Reactive cellular changes associated with inflammation present (includes repair). 06/04/2021 7:15 [facility] Attestation By the signature below, the attending physician certifies that they have personally conducted a gross and/or microscopic examination of the described specimens and rendered or confirmed the above diagnosis. 06/04/2021 7:15 [facility] at 0715 Clinical History See below 06/04/20 7:15 [facility] HPV The result for the Human Papillomavirus (HPV) Detection-High Risk Types is Negative. No E6 or E7 mRNA is detected from HPV types 16,18,31,33,35,39 ,45,51,52,56,58,5 9,66, and 68 by certified medical transcriptionist mediated amplification.Jacqueline ting was performed on specimen [id number] and was resulted on 06/04/2021 0708 EDT by ELAINA, LAB INSTRUMENT RESULTS IN 06/04/2021 7:15 EDT [facility] Performing Lab [facility] 06/04/2021 7:15 EDT [facility] Scanned Images 06/04/2021 7:15 EDT [facility] Papanicolaou smear specimen (specimen) CERVIX UTERI STRUCTURE / Unknown 05/16/2021 13:30 EDT 05/19/2021 12:04 EDT Catarina Min NP PATHOLOGY ORDERABLES [facility] [address] [place] [address] documented in this encounter Visit Diagnoses Diagnosis Encounter for other general examination documented in this encounter Care Teams Water Leak Repairer Relationship Specialty Start Date End Date Catarina Min NP [address] [place] [address] PCP - General 04/12/19 documented as of this encounter
--- OUTSIDE RECORDS SUMMARY | 2024-06-16 15:12 | XMS_ITS | Encounter Summary ---
Author Organization [facility] [place] [address] Care Team Providers Care Ink Technician Name Role Phone Catarina Min APRN Primary Care Provider [phone] Encounter Details Date Type Department Care Team (Late st Contact Info) Description 12/06/2023 Telephone [place] [phone] aDnish Schwartz MD [facility] [place] [address] Social History Tobacco Use Types Packs/Day Years [...] on filedocumented in this encounter Care Teams Ink Technician Relationship Specialty Start Date End Date Catarina Min APRN [address] [place] [address] PCP - General Family Medicine 04/08/21 documented as of this encounter
--- OUTSIDE RECORDS SUMMARY | 2024-06-16 15:12 | XMS_ITS | Encounter Summary ---
Author Organization [facility] Address [address] [place] [address] Care Team Providers Care Sports Information Director Name Role Phone Catarina Min NP Primary Care Provider [phone] Encounter Details Date Type Department Care Team (Late st Contact Info) Description 04/09/2020 Lab Requisition [facility] Pathology & Laboratory Medicine - [address] [address] Catarina Min NP [address] [place] [phone] Encounter for other general examination Social History [...] types, PCR Negative Negative 04/17/2020 14:37 EDT [facility] Comment:No E6 or E7 mRNA is detected from HPV types 16,18,31,33,35,39,45,51,52,56,58,59,66, and 68 by heel brusher mediated amplification. Papanicolaou smear specimen (specimen) CERVIX UTERI STRUCTURE / Unknown 04/08/2020 8:45 EDT 04/16/2020 15:52 EDT Catarina Min NP MICROBIOLOGY - GENER AL ORDERABLES [facility] [address] [place] [address] * PAP TEST (04/08/2020 8:45 EDT) Specimens A. Cervix and/or Endocervix , ThinPrep Imaging System with Manual Evaluation 04/17/2020 14:37 [facility] Specimen Adequacy Satisfactory for Evaluation - transformation zone component present 04/17/2020 14:37 [facility] General Categorization Negative for intraepithelial lesion or malignancy 04/17/2020 14:37 [facility] Attestation . 04/17/2020 14:37 [facility] at 1437 Clinical History SEE ORDER COMMENT 0 04/17/2020 14:37 [facility] HPV The result for the Human Papillomavirus (HPV) Detection-High Risk Types is Negative. No E6 or E7 mRNA is detected from HPV types 16,18,31,33,35,39 ,45,51,52,56,58,5 9,66, and 68 by heel brusher mediated amplification.Jacqueline ting was performed on specimen [id number] and was resulted on 04/17/2020 1414 EDT by ELAINA, LAB INSTRUMENT RESULTS IN 04/17/2020 14:37 T [facility] Scanned Images 04/17/2020 14:37 T [facility] Papanicolaou smear specimen (specimen) CERVIX UTERI STRUCTURE / Unknown 04/08/2020 8:45 EDT 04/09/2020 11:29 EDT Catarina Adjovu SUPERVISOR OF OPERATIONS PATHOLOGY ORDERABLES [facility] [address] [place] [address] documented in this encounter Visit Diagnoses Diagnosis Encounter for other general examination documented in this encounter Care Teams Sports Information Director Relationship Specialty Start Date End Date Catarina Min NP [address] [place] [phone] PCP - General 04/12/19 documented as of this encounter
--- OUTSIDE RECORDS SUMMARY | 2024-06-16 15:12 | XMS_ITS | Encounter Summary ---
Author Organization [facility] Address [address] [place] [address] Care Team Providers Care Retail Merchandising Manager Name Role Phone Unavailable Primary Care Provider Unavailabl e Encounter Details Date Type Department Care Team (Late st Contact Info) Description 01/18/2015 Results Only [facility] [phone] Aileen Mccartney MD [address] [place] [address] [address] [place], [place] [id number] Social History Tobacco Use Types Packs/Day Years [...] ? JULIETA SEN ? Accession #: ? [id number] ? : ? 1980 (Age: 34) ??F [...] types 16,18,31,33,35, 39,45,51,52,56,58, 59,66, and 68 by marketing programs specialist mediated amplification. Comments Document reviewed and electronically signed by: ? System Interface ? Report date: 01/31/2015 By the signature above, the attending physician certifies that he/she has personally conducted a gross and/or microscopic examination of the described specimens and rendered or confirmed the above diagnosis. End of Report [facility] 01/18/2015 01/22/2015 Aileen Mccartney MD PATHOLOGY ORDERABLES [facility] [address] [place] [address] documented in this encounter Visit Diagnoses Not on filedocumented in this encounter
--- OUTSIDE RECORDS SUMMARY | 2024-06-16 15:13 | XMS_ITS | Encounter Summary ---
Author Organization [facility] Address [facility] [place] [address] Care Team Providers Care Russian Teacher Name Role Phone Aileen Gonzalez MD Primary Care Provider [phone] Encounter Details Date Type Department Care Team (Latest Contact Info) Description 03/19/2015 12:41 PM EDT - 03/19/2015 11:59 PM EDT Hospital Encounter XRay at [address] [place] [address] Pain in right hip Social History Tobacco [...] cream Apply topically as needed. 02/13/2020 rizatriptan (MAXALT-PEN AND PENCIL REPAIRER) 10 mg disintegrating tablet 10/01/2005 12/27/2015 [...] thigh documented in this encounter Care Teams Russian Teacher Relationship Specialty Start Date End Date Aileen Gonzalez MD [address] [address] PCP - General 08/19/10 10/02/18 documented as of this encounter
--- OUTSIDE RECORDS SUMMARY | 2024-06-16 15:13 | XMS_ITS | Encounter Summary ---
Author Organization [facility] Address [facility] [place] [address] Care Team Providers Care Mold Presser Name Role Phone YeniCatarina hamm RUBY Primary Care Provider [phone] Reason for Visit * Occupational Therapy (Routine) - Closed Specialty Diagnoses / Procedures Referred By Contac t Referred To Contact Occupational Therapy Diagnoses De Quervain's disease (tenosynovitis) Kendra Carlin PA [facility] [place] [address] [facility] [address] [place] [address] Referral ID Status Reason Start Date Expiration Date V isits Requested Visits Authorized [id number] Closed Evaluate and Treat 10/14/2018 10/14/2019 1 1 Encounter Details Date Type Department Care Team (Late st Contact Info) Description 10/14/2018 11:00 AM EST Office Visit Occupational Therapy at [facility] [address] [place] [address] Miles Hagan OT [facility] PHYSICAL MEDICINE & [place] [address] De Quervain's tenosynovitis, right Social History Tobacco [...] De Quervain's tenosynovitis, right 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 (X) Julieta Sen participated in the evaluation, collaborated on [...] tenosynovitis documented in this encounter Care Teams Mold Presser Relationship Specialty Start Date End Date Catarina Min APRN [address] [place] [address] PCP - General Family Medicine 10/03/18 12/03/19 documented as of this encounter
--- OUTSIDE RECORDS SUMMARY | 2024-06-16 15:13 | XMS_ITS | Encounter Summary ---
Author Organization [facility] Address [facility] [place] [address] Care Team Providers Care Dehydration Plant Operator Name Role Phone Aileen Gonzlaez MD Primary Care Provider [phone] Encounter Details Date Type Department Care Team (Latest Contact Info) Description 04/24/2015 6:10 AM EDT - 04/24/2015 11:48 AM EDT Hospital Encounter [place] [address] Natasha Landry MD [facility] [place] [address] Right hip pain Discharge Disposition: Home Social [...] closest emergency room or call the hospital knockout machine operator at [phone] and ask for physician carton wrapper covering for your physician. Questions or problems after 5pm or on a weekend: Call the [facility] knockout machine operator at and ask for the physician carton wrapper covering for your doctor. [facility] Learning About Deep Vein Thrombosis What [...] more? Visit our health information library at [email or web address] Groupsullivan county memorial hospitalEnablence [email or web address].[employer] acquired by [email or web address]/healthinfo. You can alsoview health information on [employer], your personal patient account. Log in or sign up today. Enter X941 in the search box to learn more about Learning About Deep Vein Thrombosis. ?? 1022-5422 [employer]ix[employer]. Care instructions adapted under license by [facility] [facility]. This care instruction is for use with your licensed healthcare professional. If you have questions about a medical condition or this instruction, always ask your healthcare professional. [employer] disclaims any warranty or liability for your use of this information. Content Version: 8.9.36311; Last Revised: November 12, 2009 * Patient [...] is a short acting narcotic pain medication. Mbja-gvy-ctpynem Tylenol (acetaminophen) may be taken in addition [...] important in helping to prevent this. An icri-vbf-omwkzpl stool softener can also help prevent or [...] cream Apply topically as needed. 02/13/2020 rizatriptan (MAXALT-RESEARCH NURSE PRACTITIONER) 10 mg disintegrating tablet 10/01/2005 12/27/2015 documented [...] Landry MD - 04/24/2015 9:55 AM EDT [facility] Operative Note Patient Name: Julieta Sen : [id number] MR#: [id number] Case Date: 04/24/2015 Surgeon: Surgeon(s) and Role: [...] hip and was marked with a green twin hills. The patient was thenidentified by Anesthesia and [...] able to view ourentry point posteriorly. A Toledo blade was then used to perform a [...] apparent complications. Post-operative Plan: Physical Therapy per [facility] protocol to start in the next 2-5 [...] Routine documented in this encounter Care Teams Dehydration Plant Operator Relationship Specialty Start Date End Date Aileen Gonzalez MD [address] [place] [address] PCP - General 08/19/10 10/02/18 documented as of this encounter
--- OUTSIDE RECORDS SUMMARY | 2024-06-16 15:13 | XMS_ITS | Encounter Summary ---
Author Organization [facility] Address [facility] [place] [address] Care Team Providers Care Rating Clerk Name Role Phone Aileen Gonzalez MD Primary Care Provider [phone] Encounter Details Date Type Department Care Team (Latest Contact Info) Description 02/16/2014 1:48 PM EDT - 02/16/2014 11:59 PM EDT Hospital Encounter XRay at [address] [place] [address] CLINIC, Miles Gonzalez MD [facility] [place]THOPAED[place] [address] Right hip pain Discharge Disposition: Home Social [...] cream Apply topically as needed. 02/13/2020 rizatriptan (MAXALT-NEWS LIBRARIAN) 10 mg disintegrating tablet 10/01/2005 12/27/2015 documented as of this encounter Procedure Notes * Rhys Fink MD - 02/16/2014 3:16 PM EDTProcedure(s): ARTHROCENTESIS,DRAIN/INJECT JOINT/BURSA Pre-Procedure Diagnose(s): Pain in right hip Julieta Larkin Mckinley [id number] HISTORY: right hip Pain Right hip INJECTION [...] 02/20/2014 4:18 PM EDT Julieta Tra[address] Mckinley [id number] ?? HISTORY: right hip Pain ?? Right [...] Fink MD - 02/20/2014 Julieta Larkin Mckinley [id number] HISTORY: right hip Pain Right hip INJECTION [...] EDT documented in this encounter Care Teams Rating Clerk Relationship Specialty Start Date End Date Aileen Gonzalez MD [address] [place] [address] PCP - General 08/19/10 10/02/18 documented as of this encounter
--- OUTSIDE RECORDS SUMMARY | 2024-06-16 15:13 | XMS_ITS | Encounter Summary ---
Author Organization [facility] Address [facility] [place] [address] Care Team Providers Care Hr Coordinator Name Role Phone Aileen Gonzalez MD Primary Care Provider [phone] Encounter Details Date Type Department Care Team (Latest Contact Info) Description 08/03/2013 1:55 PM EST - 08/03/2013 11:59 PM [facility] Hospital Encounter XRay at [address] [place] [address] CLINIC, Miles Gonzalez MD [facility] [place] [address] Right hip pain Discharge Disposition: Home Social [...] cream Apply topically as needed. 02/13/2020 rizatriptan (MAXALT-CLOTH HAULER) 10 mg disintegrating tablet 10/01/2005 12/27/2015 documented as of this encounter Procedure Notes * Maritza Angelo MD - 08/03/2013 2:59 PM ESTProcedure(s): ARTHROCENTESIS,DRAIN/INJECT JOINT/BURSA Pre-Procedure Diagnose(s): Right hip pain Post-Procedure Diagnose(s): Right hip pain Jluieta Larkin Mckinley [id number] HISTORY: right hip Pain RIGHT HIP INJECTION [...] ? ; ? 1. ?? ARTHROCENTESIS,DRAIN/INJECT JOINT/BURSA [JXG507] ?; ?? {CR} ? ; ?? {CR} ? ; ? Julieta Larkin Mckinley [id number] ?HISTORY: ?? right hip Pain ? RIGHT [...] Procedures ; {CR} ; 1. ARTHROCENTESIS,DRAIN/INJECT JOINT/BURSA [[id number]] ; {CR} ; {CR} ; Julieta Larkin Mckinley [id number] HISTORY: right hipPain RIGHT HIP INJECTION UNDER [...] EST documented in this encounter Care Teams Hr Coordinator Relationship Specialty Start Date End Date Aileen Gonzalez MD [address] [place] [address] PCP - General 08/19/10 10/02/18 documented as of this encounter
--- OUTSIDE RECORDS SUMMARY | 2024-06-16 15:13 | XMS_ITS | Encounter Summary ---
Author Organization [facility] Address [facility] [place] [address] Care Team Providers Care Service Delivery Analyst Name Role Phone Aileen Gonzalez MD Primary Care Provider [phone] Encounter Details Date Type Department Care Team (Late st Contact Info) Description 04/24/2015 7:30 AM EDT - 04/24/2015 9:45 AM EDT Surgery [place] [address] Natasha Landry MD [facility] [place] [address] ARTHROSCOPY HIP W/LABRAL REPAIR (WRVU 15) Social [...] closest emergency room or call the hospital test operator at [phone] and ask for physician teacher education director covering for your physician. Questions or problems after 5pm or on a weekend: Call the [facility] test operator at and ask for the physician teacher education director covering for your doctor. [facility] Learning About Deep Vein Thrombosis What is [...] more? Visit our health information library at [email or web address] behavioral health [email or web address]. You can alsoview health information on [employer], your personal patient account. Log in or sign up today. Enter X941 in the search box to learn more about Learning About Deep Vein Thrombosis. ?? [phone] Meditech. Care instructions adapted under license by [facility]. This care instruction is for use with your licensed healthcare professional. If you have questions about a medical condition or this instruction, always ask your healthcare professional. Med[employer]ch disclaims any warranty or liability for your use of this information. Content Version: 8.9.44964; Last Revised: November 12, 2009 * Patient [...] is a short acting narcotic pain medication. Tlym-ole-vunxpum Tylenol (acetaminophen) may be taken in addition [...] important in helping to prevent this. An cpem-fuz-xlgvlim stool softener can also help prevent or [...] cream Apply topically as needed. 02/13/2020 rizatriptan (MAXALT-ASSISTED LIVING MANAGER) 10 mg disintegrating tablet 10/01/2005 12/27/2015 [...] Landry MD - 04/24/2015 9:55 AM EDT [facility] Operative Note Patient Name: Julieta Sen : [id number] MR#: [id number] Case Date: 04/24/2015 Surgeon: Surgeon(s) and Role: [...] hip and was marked with a green [place]. The patient was thenidentified by Anesthesia and [...] able to view ourentry point posteriorly. A Leake blade was then used to perform a [...] knot tying technique using a sliding locking Callaway knot backed up with 3 half hitches. [...] apparent complications. Post-operative Plan: Physical Therapy per [facility] protocol to start in the next 2-5 [...] Routine documented in this encounter Care Teams Service Delivery Analyst Relationship Specialty Start Date End Date Aileen Gonzalez MD [address] [place] [address] PCP - General 08/19/10 10/02/18 documented as of this encounter
--- OUTSIDE RECORDS SUMMARY | 2024-06-16 15:13 | XMS_ITS | Encounter Summary ---
Author Organization [facility] [place] [address] Care Team Providers Care Microbiology Technician Name Role Phone Aileen Gonzalez MD Primary Care Provider [phone] Encounter Details Date Type Department Care Team (Late st Contact Info) Description 07/26/2013 Orders [place] [address] Miles Landry MD [facility] [place] [address] Social History Tobacco Use Types Packs/Day Years [...] on filedocumented in this encounter Care Teams Microbiology Technician Relationship Specialty Start Date End Date Aileen Gonzalez MD [address] [place] [address] PCP - General 08/19/10 10/02/18 documented as of this encounter
--- OUTSIDE RECORDS SUMMARY | 2024-06-16 15:13 | XMS_ITS | Encounter Summary ---
Author Organization [facility] [place] [address] Care Team Providers Care Carbon Sequestration Plant Operator Name Role Phone Catarina Min APRN Primary Care Provider Reason for Referral * Occupational Therapy (Routine) - Closed Specialty Diagnoses / Procedures Referred By Contac t Referred To Contact Occupational Therapy Diagnoses De Quervain's disease (tenosynovitis) Kendra Carlin PA [facility] [place] [address] [facility] [address] [place] [address] Referral ID Status Reason Start Date Expiration Date V isits Requested Visits Authorized [id number] Closed Evaluate and Treat 10/14/2018 10/14/2019 1 1 Reason for Visit * Reason Comments Right Hand Pain XR RIGHT HAND PAIN * Consultation (Routine) - Closed Specialty Diagnoses / Procedures Referred By Contac t Referred To Contact Orthopaedics Diagnoses RIGHT WRIST PAIN Catarina Min APRN [address] [place] [address] [facility] [address] [place] [phone] Referral ID Status Reason Start Date Expiration Date V isits Requested Visits Authorized [id number] Closed Consult, Test & Treat Connection Center 10/03/2018 10/03/2019 1 1 Encounter Details Date Type Department Care Team (Late st Contact Info) Description 10/14/2018 10:00 AM EST Office [place] [address] ReiAdia PA [facility] [place] [address] De Quervain's disease (tenosynovitis) (Primary Dx); Ganglion [...] NAME: Julieta Sen AGE: 38 y.o. MR#: [id number] DATE OF VISIT: 10/14/2018 DATE OF INJURY/ONSET: [...] REPAIR performed by Miles Landry MD at [facility] OSC SOCIAL HX: Social History Occupational History [...] $75,000 or more # People Supported 4 Vietnamese, , No, not Vietnamese// Race White Health Literacy Extremely Currently working Yes Current job situation Part-time for other reasons [facility] [employer] [place] Response 12/27/2015 iHOT12 Total Score 86.66 No [...] wrist, digits without pain. APB 5/5. Strong servicenow administrator strength. Orthopedic testing: Positive Finklestein's test. Negative [...] NSAID use. She agrees and will see [facility] today for splint fabrication. We discussed that [...] Luna The above documentation was completed using cartmi voice recognition software. documented in this encounter Plan of Treatment Scheduled Referrals Name Type Priority Associated Diagnoses Order Schedule Referral to Occupational Therapy Outpatient Referral Routine De Quervain's disease (tenosynovitis) Ordered: 10/14/2018 documented as of this encounter Visit Diagnoses Diagnosis De Quervain's disease (tenosynovitis)- Primary Radial styloid tenosynovitis Ganglion cyst Ganglion, unspecified documented in this encounter Care Teams Carbon Sequestration Plant Operator Relationship Specialty Start Date End Date Catarina Min APRN [address] [place] [address] PCP - General Family Medicine 10/03/18 12/03/19 documented as of this encounter
--- OUTSIDE RECORDS SUMMARY | 2024-06-16 15:13 | XMS_ITS | Encounter Summary ---
Author Organization [facility] Address [facility] [place] [address] Care Team Providers Care Lan Administrator Name Role Phone Aileen Gonzalez MD Primary Care Provider [phone] Encounter Details Date Type Department Care Team (Latest Contact Info) Description 07/11/2014 2:11 PM EDT - 07/11/2014 11:59 PM EDT Hospital Encounter XRay at [address] [place] [address] CLINIC, Miles Gonzalez MD [facility] [place] [address] Pain in right hip Discharge Disposition: Home [...] cream Apply topically as needed. 02/13/2020 rizatriptan (MAXALT-FLEXIBLE NANNY) 10 mg disintegrating tablet 10/01/2005 12/27/2015 documented as of this encounter Procedure Notes * Maritza Angelo MD - 07/11/2014 4:40 PM EDTProcedure(s): ARTHROCENTESIS,DRAIN/INJECT JOINT/BURSA Pre-Procedure Diagnose(s): Labral tear of hip, degenerative Post-Procedure Diagnose(s): Labral tear of hip, degenerative Julieta Larkin Mckinley [id number] HISTORY: right hip Pain ACC: [id number] Right hip INJECTION UNDER FLUOROSCOPY TECHNIQUE: After an extensive conversation with the patient regarding risks and benefits, oral and written consent were obtained. A pre- procedural time-out was performed as per [facility] protocol. The patient was placed supine on [...] ?; ?? {CR} ?1. ?? ARTHROCENTESIS,DRAIN/INJECT JOINT/BURSA [[id number]] ?; ?? {CR} ? ; ?? {CR} ? ; ? Julieta ?? D Mckinley [id number] ?HISTORY: ?? right hip Pain ? ACC: ?? [id number] ?Right ?? hip INJECTION UNDER FLUOROSCOPY ?TECHNIQUE: ?? After an extensive conversation with the patient regarding risks and ?? benefits, oral and written consent were obtained. A pre- procedural time-out ?? was performed as per [facility] protocol. ?The ?? patient was placed supine [...] 07/12/2014 Procedures ; {CR} 1. ARTHROCENTESIS,DRAIN/INJECT JOINT/BURSA [[id number]] ; {CR} ; {CR} ; Julieta Larkin Mckinley [id number] HISTORY: right hipPain ACC: [id number] Right hip INJECTION UNDER FLUOROSCOPY TECHNIQUE:After an extensive conversation with the patient regarding risks and benefits,oral and written consent were obtained. A pre- procedural time-out wasperformed as per [facility] protocol. The patient was placed supine on [...] EDT documented in this encounter Care Teams Lan Administrator Relationship Specialty Start Date End Date Aileen Gonzalez MD [address] [place] [address] PCP - General 08/19/10 10/02/18 documented as of this encounter
--- OUTSIDE RECORDS SUMMARY | 2024-06-16 15:13 | XMS_ITS | Encounter Summary ---
Author Organization [facility] Address [facility] [place] [address] Care Team Providers Care Systems Spec Name Role Phone Aileen Gonzalez MD Primary Care Provider [phone] Reason for Visit * Reason Comments Right Hip Pain right hip scopr 04/24 Encounter Details Date Type Department Care Team (Late st Contact Info) Description 06/18/2015 11:30 AM EDT Office [place] [address] Miles Landry MD [facility] [place] [address] s/p R hip labral repair, femoroplasty 04/24/15 [...] thigh documented in this encounter Care Teams Systems Spec Relationship Specialty Start Date End Date Aileen Gonzalez MD [address] [place] [address] PCP - General 08/19/10 10/02/18 documented as of this encounter
--- OUTSIDE RECORDS SUMMARY | 2024-06-16 15:13 | XMS_ITS | Encounter Summary ---
Author Organization [facility] Address [facility] [place] [address] Care Team Providers Care Sales Agent Name Role Phone Aileen Gonzalez MD Primary Care Provider [phone] Reason for Visit * Reason Comments Right Hip Pain Right Hip Scope, 03/28 06/11 Encounter Details Date Type Department Care Team (Late st Contact Info) Description 08/30/2015 11:30 AM EST Office [place] [address] Miles Landry MD [facility] [place] [address] s/p R hip labral repair, femoroplasty 04/24/15 [...] thigh documented in this encounter Care Teams Sales Agent Relationship Specialty Start Date End Date Aileen Gonzalez MD [address] [place] [address] PCP - General 08/19/10 10/02/18 documented as of this encounter
--- OUTSIDE RECORDS SUMMARY | 2024-06-16 15:13 | XMS_ITS | Encounter Summary ---
Author Organization [facility] [place] [address] Care Team Providers Care Paragliding Instructor Name Role Phone Catarina Min APRN Primary Care Provider [phone] Encounter Details Date Type Department Care Team (Late st Contact Info) Description 10/25/2023 Ancillary Procedure Radiology Library at [facility] [place] [address] Danish Schwartz MD [facility] [place] [address] Social History Tobacco Use Types Packs/Day Years [...] Ultrasound Study (10/25/2023 12:00 AM EST) Narrative [facility] - 11/26/2023 12:13 PM EST This exam is auto-finalizing. It's purpose is for storage only. Danish Schwartz MD IMG FILM LIBRARY O RDERABLES DH RAD [place], [place] documented in this encounter Visit Diagnoses Not on filedocumented in this encounter Care Teams Paragliding Instructor Relationship Specialty Start Date End Date Catarina Min APRN [address] [place] [address] PCP - General Family Medicine 04/08/21 documented as of this encounter
--- OUTSIDE RECORDS SUMMARY | 2024-06-16 15:13 | XMS_ITS | Encounter Summary ---
Author Organization [facility] Address [facility] [place] [address] Care Team Providers Care Fraternity Adviser Name Role Phone YeniCatarina hamm APRN Primary Care Provider [phone] Encounter Details Date Type Department Care Team (Late st Contact Info) Description 10/14/2018 [place] [address] Rei, RAMOS Estrella [facility] [place] [address] Pain in right wrist Social History Tobacco [...] below. ? Electronically signed by: Maritza Angelo [facility] ([phone]), at 10/14/2018 10:03 AM Narrative 10/14/2018 10:03 [...] number below. Electronically signed by: Maritza Angelo [facility]([phone]), at 10/14/2018 10:03 AM Alexis Dumont MD IMG DX ORDERABLES documented in this encounter Visit Diagnoses Diagnosis Pain in right wrist Pain in joint, forearm Pain in right wrist Pain in joint, forearm documented in this encounter Care Teams Fraternity Adviser Relationship Specialty Start Date End Date Astrid MinRUBY gregg [address] [place] [address] [address] [facility] [address] [place] [address] PCP - General Family Medicine 10/03/18 12/03/19 documented as of this encounter
--- OUTSIDE RECORDS SUMMARY | 2024-06-16 15:13 | XMS_ITS | Encounter Summary ---
Author Organization [facility] Address [facility] [place] [address] Care Team Providers Care Make Ready Worker Name Role Phone Aileen Gonzalez MD Primary Care Provider [phone] Reason for Visit * Reason Onset Date Comments Injections 03/07/2015 Appointment 03/07/2015 Encounter Details Date Type Department Care Team (Late st Contact Info) Description 03/07/2015 Telephone [place] [address] Miles Landry MD [facility] [address] [place] [address] Injections; Appointment Social History Tobacco Use Types [...] returning for repeat evaluation and to discuss jail treatment plan. She comes from quite a distance in [place], [place] and would like to combine an [...] later. She will plan to have a racing car driver. Message routed to secretaries for injection [...] thigh documented in this encounter Care Teams Make Ready Worker Relationship Specialty Start Date End Date Aileen Gonzalez MD [address] [place] [address] PCP - General 08/19/10 10/02/18 documented as of this encounter
--- OUTSIDE RECORDS SUMMARY | 2024-06-16 15:13 | XMS_ITS | Encounter Summary ---
[place] [address] Care Team Providers Care Vice President Of Customer Service Name Role Phone Aileen Gonzalez MD Primary Care Provider Encounter Details Date Type Department Care Team (Late st Contact Info) Description 04/24/2015 7:29 AM EDT Anesthesia Event [place] [address] Renny Lomeli [facility] [place] [address] Darien Engel MD [facility] [place] [address] Anesthesia Record Procedure Summary Procedure Name Responsible [...] (LDA cleanup utility RA#[id number]) 04/24/15 0000 by Lucretai Teran RN 05/25/22 1715 by Jung Luna (RETIRED) Peripheral IV Line - Single Lumen 04/24/15; 0642; basilic vein left (medial side of arm); wcqt-paf-aymqer catheter system; 20 gauge, 1 in length; [...] consented to blood products. Plan discussed with SENIOR BENEFITS SPECIALIST and attending. Misc. Assessment: documented in this [...] mg documented in this encounter Care Teams Vice President Of Customer Service Relationship Specialty Start Date End Date Aileen Gonzalez MD [address] [place] [address] PCP - General 08/19/10 10/02/18 documented as of this encounter
--- OUTSIDE RECORDS SUMMARY | 2024-06-16 15:13 | XMS_ITS | Encounter Summary ---
Author Organization [facility] Address [facility] [place] [address] Care Team Providers Care Integrated Logistics Programs Director Name Role Phone Bia Morrissey APRN Primary Care Provider [phone] Reason for Visit * Reason Comments Skin Cancer Examination * Consultation (Routine) - Specialty Diagnoses / Procedures Referred By Contisrael joyner Referred To Contact Dermatology Diagnoses Disorder of the skin and subcutaneous tissue, unspecified Skin abnormalities Procedures Consult Bia Morrissey APRN [address] [place] [address] [facility] Dermatology [address] [place] [address] Referral ID Status Reason Start Date Expiration Date V isits Requested Visits Authorized [id number] Consult, Test & Treat PCP Updated and/or Approved 11/28/2019 11/27/2020 1 1 Encounter Details Date Type Department Care Team (Late st Contact Info) Description 02/13/2020 1:20 PM EDT Office Visit Dermatology at [facility] [address] [place] [address] Yanni Issa MD [facility] [place] [address] Hand dermatitis (Primary Dx); SK [...] hand cream daily. Social History: Occupation: [employer]Laid off last spring Hobbies: Gardening. Family History: [...] or sooner if needed. Routed to the escrow secretary to schedule. Note initiated and routed [...] documentation. Yanni Issa MD Section of Dermatology [facility] documented in this encounter Plan of Treatment Not on file documented as of this encounter Visit Diagnoses Diagnosis Hand dermatitis- Primary Contact dermatitis and other eczema, due to unspecified cause SK (seborrheic keratosis) Other seborrheic keratosis Multiple benign nevi Benign neoplasm of skin, site unspecified Viral warts, unspecified type documented in this encounter Care Teams Integrated Logistics Programs Director Relationship Specialty Start Date End Date Bia Morrissey APRN [address] [place] [address] PCP - General Family Medicine 12/04/19 04/07/21 documented as of this encounter
--- OUTSIDE RECORDS SUMMARY | 2024-06-16 15:13 | XMS_ITS | Encounter Summary ---
Author Organization [facility] Address [facility] [place] [address] Care Team Providers Care Bakery Demonstrator Name Role Phone Aileen Gonzalez MD Primary Care Provider [phone] Encounter Details Date Type Department Care Team (Late st Contact Info) Description 03/20/2015 Orders [place] [address] Miles Landry MD [facility] [place] [address] Right hip pain Social History Tobacco Use [...] thigh documented in this encounter Care Teams Bakery Demonstrator Relationship Specialty Start Date End Date Aileen Gonzalez MD [address] [place] [address] PCP - General 08/19/10 10/02/18 documented as of this encounter
--- OUTSIDE RECORDS SUMMARY | 2024-06-16 15:13 | XMS_ITS | Encounter Summary ---
Author Organization [facility] Address [facility] [address] Care Team Providers Care Cut Roll Machine Operator Name Role Phone Catarina Min APRN Primary Care Provider Encounter Details Date Type Department Care Team (Latest Contact Info) Description 10/14/2018 9:04 AM EST - 10/14/2018 9:23 AM [facility] Hospital Encounter XRay at [address] [place] [address] Alexis Dumont MD [facility] [place] [address] Right wrist pain; Right hand pain Discharge [...] below. ? Electronically signed by: Maritza Angelo [facility] ([phone]), at 10/14/2018 10:03 AM Narrative 10/14/2018 10:03 [...] number below. Electronically signed by: Maritza Angelo [facility]([phone]), at 10/14/2018 10:03 AM Alexis Dumont MD IMG DX ORDERABLES documented in this encounter Visit Diagnoses Diagnosis Right wrist pain Pain in joint, forearm Right hand pain Pain in limb documented in this encounter Care Teams Cut Roll Machine Operator Relationship Specialty Start Date End Date Catarina Min APRN [address] [place] [address] PCP - General Family Medicine 10/03/18 12/03/19 documented as of this encounter
--- OUTSIDE RECORDS SUMMARY | 2024-06-16 15:13 | XMS_ITS | Encounter Summary ---
Author Organization [facility] Address [facility] [place] [address] Care Team Providers Care Pit Tanner Name Role Phone Catarina Min APRN Primary Care Provider [phone] Encounter Details Date Type Department Care Team (Latest Contact Info) Description 10/14/2018 9:24 AM EST - 10/14/2018 11:59 PM [facility] Hospital Encounter XRay at [address] [place] [address] Alexis Dumont MD [facility] [place] [address] Pain in right wrist Discharge Disposition: Home [...] below. ? Electronically signed by: Maritza Angelo [facility] ([phone]), at 10/14/2018 10:03 AM Narrative 10/14/2018 10:03 [...] forearm documented in this encounter Care Teams Pit Tanner Relationship Specialty Start Date End Date Mechelle RUBY Elmore [address] [place] [address] PCP - General Family Medicine 10/03/18 12/03/19 documented as of this encounter
--- OUTSIDE RECORDS SUMMARY | 2024-06-16 15:13 | XMS_ITS | Encounter Summary ---
Author Organization [facility] Address [facility] [place] [address] Care Team Providers Care Journalism Instructor Name Role Phone Aileen Gonzalez MD Primary Care Provider [phone] Reason for Referral * Physical Therapy (Routine) - Closed Specialty Diagnoses / Procedures Referred By Contac t Referred To Contact Physical Therapy Diagnoses Right hip pain Miles Landry MD [facility] [place] [address] Referral ID Status Reason Start Date Expiration Date V isits Requested Visits Authorized [id number] Closed Evaluate and Treat 03/19/2015 09/15/2015 12 12 Reason for Visit * Reason Comments Right Hip Pain Discuss Surgery Encounter Details Date Type Department Care Team (Late st Contact Info) Description 03/19/2015 1:45 PM EDT Office [place] [address] Miles Landry MD [facility] [place] [address] Right hip pain (Primary Dx) Discharge Disposition: [...] 3:10 PM EDT Surgical Consent with AT-Physician Shucker: Learning Needs Assessment Reviewed: Yes The surgical consent was reviewed with the patient. Procedure, risks, and benefits were reviewed. Questions were solicited and answered. The patient understands these and the surgical consent was signed. H & P will be completed day of in pre-op. Patient was given a DME order for crutches. This can be obtained from any DME provider or medical equipment [employer]. Patient was given a referral for physical [...] to pursue PT with Jose Mcgill in [place]. Her activity goals are to return to: running, mountain biking, gardening, playing with her 2 young boys Patient was given a bottle of Hibiclense to be used in the shower the night before and the morning of their procedure. Showering instructions were reviewed. Patient was brought to the surgical schedulers to select a surgical date. Fany Zarco M.Ed, ATC, [facility] Elementary Secretary-Physician Shucker to Dr. Ari Landry Department of Orthopaedics [...] thigh documented in this encounter Care Teams Journalism Instructor Relationship Specialty Start Date End Date Aileen Gonzalez MD [address] [place] [address] PCP - General 08/19/10 10/02/18 documented as of this encounter
--- OUTSIDE RECORDS SUMMARY | 2024-06-16 15:13 | XMS_ITS | Encounter Summary ---
Author Organization [facility] Address [facility] [place] [address] Care Team Providers Care Oven Worker Name Role Phone Aileen Gonzalez MD Primary Care Provider Reason for Visit * Reason Onset Date Comments Injections 01/29/2014 Encounter Details Date Type Department Care Team (Late st Contact Info) Description 01/29/2014 Telephone [place] [address] Miles Landry MD [facility] [place] [address] Injections Social History Tobacco Use Types Packs/Day [...] 02/20/2014 4:18 PM EDT Julieta Larkin Mckinley [id number] ?? HISTORY: right hip Pain ?? Right [...] Fink MD - 02/20/2014 Julieta Larkin Mckinley [id number] HISTORY: right hip Pain Right hip INJECTION [...] thigh documented in this encounter Care Teams Oven Worker Relationship Specialty Start Date End Date Aileen Gonzalez MD [address] [place] [address] PCP - General 08/19/10 10/02/18 documented as of this encounter
--- OUTSIDE RECORDS SUMMARY | 2024-06-16 15:13 | XMS_ITS | Encounter Summary ---
[place] [address] Care Team Providers Care Loss Control Consultant Name Role Phone Aileen Gonzalez MD Primary Care Provider [phone] Reason for Visit * Reason Comments Travel Consult Encounter Details Date Type Department Care Team (Late st Contact Info) Description 03/17/2016 1:45 PM EDT Office [place] [address] Patricia Parks RN Need for prophylactic vaccination [...] Destination countries (list from first to last): [facility] 3[facility]5 [facility] with a side trip to [facility] for [facility] for one day. Departure date: 04/24/16 Length of trip: 3.5 weeks Purpose of travel: work / teaching Type of environment: urban Accommodations: hotels Medical History: Medical problems: Patient Active Problem List Diagnosis Code ??? Right hip pain M25.551 ??? s/p R hip labral repair, femoroplasty 04/24/15 ([place]) M25.551 ??? Health care maintenance Z00.00 Current [...] fever documented in this encounter Care Teams Loss Control Consultant Relationship Specialty Start Date End Date Aileen Gonzalez MD [address] [place] [address] PCP - General 08/19/10 10/02/18 documented as of this encounter
--- OUTSIDE RECORDS SUMMARY | 2024-06-16 15:13 | XMS_ITS | Encounter Summary ---
Author Organization [facility] [place] [address] Care Team Providers Care Environmental Aid Name Role Phone Catarina Min APRN Primary Care Provider [phone] Encounter Details Date Type Department Care Team (Late st Contact Info) Description 01/05/2023 Ancillary Procedure Radiology Library at [facility] [place] [address] Danish Schwartz MD [facility] [place] [address] Social History Tobacco Use Types Packs/Day Years [...] IMG FILM LIBRARY O RDERABLES DH RAD [place], [place] documented in this encounter Visit Diagnoses Not on filedocumented in this encounter Care Teams Environmental Aid Relationship Specialty Start Date End Date Catarina Min APRN [address] [place] [address] PCP - General Family Medicine 04/08/21 documented as of this encounter
--- OUTSIDE RECORDS SUMMARY | 2024-06-16 15:13 | XMS_ITS | Encounter Summary ---
Author Organization [facility] Address [facility] [place] [address] Care Team Providers Care Library Supervisor Name Role Phone Catarina Min APRN Primary Care Provider [phone] Encounter Details Date Type Department Care Team (Late st Contact Info) Description 10/07/2018 5:05 PM EST Ancillary Procedure Radiology Library at [facility] [place] [address] Alexis Dumont MD [facility] [place] [address] Social History Tobacco Use Types Packs/Day Years [...] MR Wrist (10/07/2018 5:04 PM EST) Narrative [facility] - 10/07/2018 5:04 PM EST This exam is for storage only and is auto-finalizing. Alexis Dumont MD [facility] FILM LIBRARY ORD ERABLES DH [place], [place] documented in this encounter Visit Diagnoses Not on filedocumented in this encounter Care Teams Library Supervisor Relationship Specialty Start Date End Date Catarina Min APRN [address] [place] [address] PCP - General Family Medicine 10/03/18 3 documented as of this encounter
--- OUTSIDE RECORDS SUMMARY | 2024-06-16 15:13 | XMS_ITS | Encounter Summary ---
Author Organization [facility] [place] [address] Care Team Providers Care Houseperson Name Role Phone Catarina Min APRN Primary Care Provider [phone] Encounter Details Date Type Department Care Team (Late st Contact Info) Description 10/05/2022 Ancillary Procedure Radiology Library at [facility] [place] [address] Danish Schwartz MD [facility] [place] [address] Social History Tobacco Use Types Packs/Day Years [...] Ultrasound Study (10/05/2022 12:00 AM EST) Narrative [facility] - 11/26/2023 12:15 PM EST This exam is auto-finalizing. It's purpose is for storage only. Danish Schwartz MD IMG FILM LIBRARY O RDERABLES DH RAD [place], [place] documented in this encounter Visit Diagnoses Not on filedocumented in this encounter Care Teams Houseperson Relationship Specialty Start Date End Date Catarina Min APRN [address] [place] [address] PCP - General Family Medicine 04/08/21 documented as of this encounter
--- OUTSIDE RECORDS SUMMARY | 2024-06-16 15:13 | XMS_ITS | Encounter Summary ---
Author Organization [facility] [place] [address] Care Team Providers Care Delivery Professional Name Role Phone Aileen Gonzalez MD Primary Care Provider [phone] Encounter Details Date Type Department Care Team (Late st Contact Info) Description 08/30/2015 1:00 PM EST Office Visit Physical Therapy at [facility] [address] [place] [address] Peter Cobos, PT Right hip pain; s/p R hip labral repair, femoroplasty 04/24/15 ([place]) Social History Tobacco Use Types Packs/Day Years [...] R hip labral repair, femoroplasty 04/24/15 (Gris) Total treatment time: 10 minutes Total coded [...] s/p R hip labral repair, femoroplasty 04/24/15 (Manson) Pain in joint, pelvic region and thigh documented in this encounter Care Teams Delivery Professional Relationship Specialty Start Date End Date Aileen Gonzalez MD [address] [place] [address] PCP - General 08/19/10 10/02/18 documented as of this encounter
--- OUTSIDE RECORDS SUMMARY | 2024-06-16 15:13 | XMS_ITS | Encounter Summary ---
Author Organization [facility] Address [facility] [place] [address] Care Team Providers Care Screw Machine Set Up Operator Tool Name Role Phone Aileen Gonzalez MD Primary Care Provider [phone] Reason for Visit * Reason Onset Date Comments Physical Therapy 04/29/2015 Encounter Details Date Type Department Care Team (Late st Contact Info) Description 04/29/2015 Telephone [place] [address] Miles Landry MD [facility] [place] [address] Physical Therapy Social History Tobacco Use Types [...] therapist: Where do they have their PT? [facility] Fax # What they need: Ivette called from [facility] and she would like to get clarification on patient weight bearing. documented in this encounter Plan of Treatment Not on file documented as of this encounter Visit Diagnoses Not on filedocumented in this encounter Care Teams Screw Machine Set Up Operator Tool Relationship Specialty Start Date End Date Aileen Gonzalez MD [address] [place] [address] PCP - General 08/19/10 10/02/18 documented as of this encounter
--- OUTSIDE RECORDS SUMMARY | 2024-06-16 15:13 | XMS_ITS | Encounter Summary ---
Author Organization [facility] Address [facility] [place] [address] Care Team Providers Care Drupal Programmer Name Role Phone Aileen Gonzalez MD Primary Care Provider [phone] Reason for Visit * Reason Comments Right Hip Pain Encounter Details Date Type Department Care Team (Late st Contact Info) Description 12/27/2015 9:30 AM EDT Office [place] [address] Miles Landry MD [facility] [place] [address] Status post arthroscopy of hip Social History [...] hip documented in this encounter Care Teams Drupal Programmer Relationship Specialty Start Date End Date Aileen Gonzalez MD [address] [place] [address] PCP - General 08/19/10 10/02/18 documented as of this encounter
--- OUTSIDE RECORDS SUMMARY | 2024-06-16 15:13 | XMS_ITS | Encounter Summary ---
Author Organization [facility] Address [facility] [place] [address] Care Team Providers Care Exploitation Analyst Name Role Phone Aileen Gonzalez MD Primary Care Provider [phone] Reason for Visit * Reason Onset Date Comments Post Procedure Call 04/25/2015 Encounter Details Date Type Department Care Team (Late st Contact Info) Description 04/25/2015 [place]phone [place] [phone] Miles Landry MD [facility] [place] [address] Post Procedure Call Social History Tobacco Use [...] characterization: loss of sensation and moderate; [facility] Instructions/HEP Instruction: Patient will be attending physical therapy at [facility] with Jose Mcgill. Their first [...] Leb Ortho None Iliana BarnhartEd, ATC, OTC Loading Manager-Physician Battery Inspector to Dr. Ari Landry Department of Orthopaedics Division of Sports Medicine * Telephone Encounter - Katelyn Mendenhall - 04/25/2015 3:36 PM EDT Patient calling for a phone appointment replacing office visit for 04/26/15 documented in this encounter Plan of Treatment Not on file documented as of this encounter Visit Diagnoses Not on filedocumented in this encounter Care Teams Exploitation Analyst Relationship Specialty Start Date End Date Aileen Gonzalez MD [address] [place] [address] PCP - General 08/19/10 10/02/18 documented as of this encounter
--- OUTSIDE RECORDS SUMMARY | 2024-06-16 15:13 | XMS_ITS | Encounter Summary ---
Author Organization [facility] [place] [address] Care Team Providers Care Remote Broadcast Engineer Name Role Phone Catarina Min APRN Primary Care Provider [phone] Encounter Details Date Type Department Care Team (Late st Contact Info) Description 06/18/2022 Ancillary Procedure Radiology Library at [facility] [place] [address] Danish Schwartz MD [facility] [place] [address] Social History Tobacco Use Types Packs/Day Years [...] IMG FILM LIBRARY O RDERABLES DH RAD [place], [place] documented in this encounter Visit Diagnoses Not on filedocumented in this encounter Care Teams Remote Broadcast Engineer Relationship Specialty Start Date End Date Catarina Min APRN [address] [place] [address] PCP - General Family Medicine 04/08/21 documented as of this encounter
--- OUTSIDE RECORDS SUMMARY | 2024-06-16 15:13 | XMS_ITS | Encounter Summary ---
Author Organization [facility] Address [facility] [place] [address] Care Team Providers Care Financial Manager Name Role Phone Aileen Gonzalez MD Primary Care Provider [phone] Encounter Details Date Type Department Care Team (Late st Contact Info) Description 02/12/2014 Telephone [place] [phone] Miles Landry MD [facility] [place] [address] Social History Tobacco Use Types Packs/Day Years [...] on filedocumented in this encounter Care Teams Financial Manager Relationship Specialty Start Date End Date Aileen Gonzalez MD [address] [place] [address] PCP - General 08/19/10 10/02/18 documented as of this encounter
--- OUTSIDE RECORDS SUMMARY | 2024-06-16 15:13 | XMS_ITS | Encounter Summary ---
Author Organization [facility] Address [facility] [place] [address] Care Team Providers Care Credit Specialist Name Role Phone Aileen Gonzalez MD Primary Care Provider [phone] Reason for Visit * Reason Onset Date Comments Follow-up 08/30/2015 Encounter Details Date Type Department Care Team (Late st Contact Info) Description 08/30/2015 [place] [address] Miles Landry MD [facility] [place] [address] Follow-up Social History Tobacco Use Types Packs/Day [...] on filedocumented in this encounter Care Teams Credit Specialist Relationship Specialty Start Date End Date Aileen Gonzalez MD [address] [place] [address] PCP - General 08/19/10 10/02/18 documented as of this encounter
--- OUTSIDE RECORDS SUMMARY | 2024-06-16 15:13 | XMS_ITS | Encounter Summary ---
Author Organization [facility] Address [facility] [place] [address] Care Team Providers Care Luncheonette Operator Name Role Phone Aileen Gonzalez MD Primary Care Provider [phone] Reason for Visit * Reason Onset Date Comments Injections 07/03/2014 Encounter Details Date Type Department Care Team (Late st Contact Info) Description 07/03/2014 Telephone [place] [address] Miles Landry MD [facility] [place] [address] Injections Social History Tobacco Use Types Packs/Day [...] ?; ?? {CR} ?1. ?? ARTHROCENTESIS,DRAIN/INJECT JOINT/BURSA [[id number]] ?; ?? {CR} ? ; ?? {CR} ? ; ? Julieta ?? Trae Mckinley [id number] ?HISTORY: ?? right hip Pain ? ACC: ?? [id number] ?Right ?? hip INJECTION UNDER FLUOROSCOPY ?TECHNIQUE: ?? After an extensive conversation with the patient regarding risks and ?? benefits, oral and written consent were obtained. A pre- procedural time-out ?? was performed as per [facility] protocol. ?The ?? patient was placed supine [...] 07/12/2014 Procedures ; {CR} 1. ARTHROCENTESIS,DRAIN/INJECT JOINT/BURSA [[id number]] ; {CR} ; {CR} ; Julieta Larkin Mckinley [id number] HISTORY: right hipPain ACC: [id number] Right hip INJECTION UNDER FLUOROSCOPY TECHNIQUE:After an extensive conversation with the patient regarding risks and benefits,oral and written consent were obtained. A pre- procedural time-out wasperformed as per [facility] protocol. The patient was placed supine on [...] thigh documented in this encounter Care Teams Luncheonette Operator Relationship Specialty Start Date End Date Aileen Gonzalez MD [address] [place] [address] PCP - General 08/19/10 10/02/18 documented as of this encounter
--- OUTSIDE RECORDS SUMMARY | 2024-06-16 15:13 | XMS_ITS | Encounter Summary ---
Author Organization [facility] Address [facility] [place] [address] Care Team Providers Care Translator Name Role Phone Aileen Gonzalez MD Primary Care Provider [phone] Encounter Details Date Type Department Care Team (Late st Contact Info) Description 05/07/2015 12:16 PM EDT - 05/07/2015 11:59 PM EDT Hospital Encounter XRay at [address] [place] [address] Right hip pain Social History Tobacco Use [...] cream Apply topically as needed. 02/13/2020 rizatriptan (MAXALT-STENCIL CUTTER MACHINE) 10 mg disintegrating tablet 10/01/2005 12/27/2015 documented [...] thigh documented in this encounter Care Teams Translator Relationship Specialty Start Date End Date Aileen Gonzalez MD [address] [place] [address] PCP - General 08/19/10 10/02/18 documented as of this encounter
--- OUTSIDE RECORDS SUMMARY | 2024-06-16 15:13 | XMS_ITS | Encounter Summary ---
Author Organization [facility] Address [facility] [place] [address] Care Team Providers Care Short Order Cook Name Role Phone Aileen Gonzalez MD Primary Care Provider [phone] Reason for Visit * Reason Comments Right Hip Pain Encounter Details Date Type Department Care Team (Late st Contact Info) Description 07/28/2013 3:20 PM EDT Office [place] [phone] Miles Landry MD [facility] [place] [address] Tal Amos PA [facility] [place] [address] Right hip pain (Primary Dx) Discharge Disposition: [...] NAME: Julieta Sen AGE: 33 y.o. MR#: [id number] DATE OF VISIT: 07/28/2013 DATE OF INJURY/ONSET: Chronic STAFF: Dr. Landry CHIEF COMPLAINT: right hip pain HISTORY OF PRESENT ILLNESS Ms. Sen a 33 y.o. year old female comes into clinic today for evaluation of her right hip. The patient has a extensive past medical history of right hip pain dating backto her using college when she was in a an [employer] program. Patient states, that she is caring a heavy pack at that time where she fell possibly sustaining a hyperextension type of injury. Patient statesthat since sustaining the injury. She seen. Multiple orthopedists the past as well as physical therapist, and chiropractors. Patient states, that she was was released recently seen by Dr. Rhys Cummins at the [facility]. The patient had an MRI done at [facility] prior to her visit with Dr. Cummins. [...] Skin disorder SOCIAL HX: Smoking: Denies Occupation: Electrical Controls Technician ROS: Denies fever, chills, DOMINGO, LOC, SOB, CP, NVD, abd pain, paresthesias, weakness in the extremities, swelling in the joints, h/o RA. No recent hospitalizations PHYSICAL EXAM: Ms. Sen a 33 y.o. year old is alert [...] ? ; ? 1. ?? ARTHROCENTESIS,DRAIN/INJECT JOINT/BURSA [[id number]] ?; ?? {CR} ? ; ?? {CR} ? ; ? Julieta Larkin Mckinley [id number] ?HISTORY: ?? right hip Pain ? RIGHT [...] Procedures ; {CR} ; 1. ARTHROCENTESIS,DRAIN/INJECT JOINT/BURSA [[id number]] ; {CR} ; {CR} ; Julieta Larkin Mckinley [id number] HISTORY: right hipPain RIGHT HIP INJECTION UNDER [...] thigh documented in this encounter Care Teams Short Order Cook Relationship Specialty Start Date End Date Aileen Gonzalez MD [address] [place] [address] PCP - General 08/19/10 10/02/18 documented as of this encounter
--- OUTSIDE RECORDS SUMMARY | 2024-06-16 15:13 | XMS_ITS | Encounter Summary ---
Author Organization [facility] Address [facility] [place] [address] Care Team Providers Care Operating Room Scheduler Name Role Phone Aileen Gonzalez MD Primary Care Provider [phone] Reason for Visit * Reason Comments Right Hip Pain hip pain Encounter Details Date Type Department Care Team (Late st Contact Info) Description 10/13/2013 2:05 PM EST Office [place] [address] Miles Landry MD [facility] [place] [address] Right hip pain (Primary Dx) Discharge Disposition: [...] thigh documented in this encounter Care Teams Operating Room Scheduler Relationship Specialty Start Date End Date Aileen Gonzalez MD [address] [place] [address] PCP - General 08/19/10 10/02/18 documented as of this encounter
--- OUTSIDE RECORDS SUMMARY | 2024-06-16 15:13 | XMS_ITS | Encounter Summary ---
Author Organization [facility] Address [facility] [place] [address] Care Team Providers Care Strategic Partnership Manager Name Role Phone Aileen Gonzalez MD Primary Care Provider [phone] Reason for Visit * Reason Comments Right Hip Pain Right Hip Scope 04/24 Encounter Details Date Type Department Care Team (Late st Contact Info) Description 05/07/2015 1:15 PM EDT Office [place] [address] Miles Landry MD [facility] DR [place] [address] s/p R hip labral repair, femoroplasty 04/24/15 [...] thigh documented in this encounter Care Teams Strategic Partnership Manager Relationship Specialty Start Date End Date Aileen Gonzalez MD [address] [place] [address] PCP - General 08/19/10 10/02/18 documented as of this encounter
--- OUTSIDE RECORDS SUMMARY | 2024-06-16 15:13 | XMS_ITS | Encounter Summary ---
Author Organization [facility] Address [facility] [address] Care Team Providers Care Type Proof Reproducer Name Role Phone Aileen Gonzalez MD Primary Care Provider [phone] Encounter Details Date Type Department Care Team (Late st Contact Info) Description 07/28/2013 2:36 PM EDT - 07/28/2013 11:59 PM EDT Hospital Encounter XRay at [address] [place] [address] Hip pain Social History Tobacco Use Types [...] cream Apply topically as needed. 02/13/2020 rizatriptan (MAXALT-PELLETIZER OPERATOR) 10 mg disintegrating tablet 10/01/2005 12/27/2015 documented [...] thigh documented in this encounter Care Teams Type Proof Reproducer Relationship Specialty Start Date End Date Aileen Gonzalez MD [address] [place] [address] PCP - General 08/19/10 10/02/18 documented as of this encounter
--- OUTSIDE RECORDS SUMMARY | 2024-06-16 15:13 | XMS_ITS | Encounter Summary ---
Author Organization [facility] [place] [address] Care Team Providers Care Tailing Hand Name Role Phone Catarina Min APRN Primary Care Provider [phone] Encounter Details Date Type Department Care Team (Late st Contact Info) Description 07/23/2022 Ancillary Procedure Radiology Library at [facility] [place] [address] Danish Schwartz MD [facility] [place] [address] Social History Tobacco Use Types Packs/Day Years [...] IMG FILM LIBRARY O RDERABLES DH RAD [place], [place] documented in this encounter Visit Diagnoses Not on filedocumented in this encounter Care Teams Tailing Hand Relationship Specialty Start Date End Date Catarina Min APRN [address] [place] [address] PCP - General Family Medicine 04/08/21 documented as of this encounter
--- OUTSIDE RECORDS SUMMARY | 2024-06-16 15:14 | XMS_ITS | Encounter Summary ---
[place] [address] Care Team Providers Care Fire Coordinator Name Role Phone Aileen Gonzalez MD Primary Care Provider [phone] Encounter Details Date Type Department Care Team (Late st Contact Info) Description 07/20/2013 [place] [address] Viridiana Petty Social History Tobacco Use Types Packs/Day Years Used Date Smoking Tobacco: Never Assessed Sex and Gender Information Value Date Recorded Sex Assigned at Not on file Gender Identity Female 02/13/2020 11:32 AM EDT Sexual Orientation Not on file documented as of this encounter Miscellaneous Notes * Telephone Encounter - Vargasreggie Ena Gomez - 07/20/2013 12:08 PM EDT Ask patient to verify the following: Full name: Julieta Sen : 1980 Phone number: [phone] (home) Mailing address: [address] [place] [address] Intake: RIGHT HIP PAIN Is this an injury that happened: NO ?? At work? ?? Playing a sport? ?? If yes to either, what is DOI? Tell me how this how long you've had these symptoms? 16 YEARS Has anyone ever seen you before for this issue? DR. VANN (REQUESTED RECS) [facility] & DR[facility] BRUCE [facility] (RECS IN [place]) Have you tried: YES ?? Physical Therapy - HAD AT [facility] (REQUEST SENT) ?? INJECTION - NONE ?? Other therapies Have you had any of the following studies for this issue? YES ?? X-Ray ?? MRI - [facility] ?? CT Scan ?? LABS [...] on filedocumented in this encounter Care Teams Fire Coordinator Relationship Specialty Start Date End Date Aileen Gonzalez MD [address] [place] [address] PCP - General 08/19/10 10/02/18 documented as of this encounter
--- OUTSIDE RECORDS SUMMARY | 2024-06-16 15:14 | XMS_ITS | Encounter Summary ---
Author Organization [facility] [place] [address] Care Team Providers Care Radiation Monitor Name Role Phone Aileen Gonzalez MD Primary Care Provider Encounter Details Date Type Department Care Team (Late st Contact Info) Description 06/02/2013 Orders [place] [address] Miles Landry MD [facility] DR [place] [address] Social History Tobacco Use Types Packs/Day Years [...] on filedocumented in this encounter Care Teams Radiation Monitor Relationship Specialty Start Date End Date Aileen Gonzalez MD [address] [place] [address] PCP - General 08/19/10 10/02/18 documented as of this encounter
--- OUTSIDE RECORDS SUMMARY | 2024-06-16 15:14 | XMS_ITS | Encounter Summary ---
Author Organization [facility] Address [facility] [place] [address] Care Team Providers Care Electrical Contacts Adjuster Name Role Phone Aileen Gonzalez MD Primary Care Provider [phone] Encounter Details Date Type Department Care Team (Late st Contact Info) Description 07/26/2013 Orders [place] [address] Miles Landry MD [facility] [place] [address] Hip pain (Primary Dx) Social History Tobacco [...] thigh documented in this encounter Care Teams Electrical Contacts Adjuster Relationship Specialty Start Date End Date Aileen Gonzalez MD [address] [place] [address] PCP - General 08/19/10 10/02/18 documented as of this encounter
== END 2024-06-16 15:07 | disposition home or self-care (01) ==
LOC: LBN 15:06
PROVIDERS: PCP Nurse Practitioner Family; Visit Provider Physician Assistant
DX: N39.0 Urinary tract infection, site not specified (principal); R30.0 Dysuria
CPT/HCPCS: 87077; 87086; 87186

== ENCOUNTER 2024-06-23 11:26 | Outpatient (CLI) | payer OTHER, SELFPAY ==
--- NOTE | 2024-06-23 09:55 | DI.RAD_ITS ---
Exam(s) XR CHEST 2V PA LATERAL EXAM: XR CHEST 2V PA LATERAL CLINICAL HISTORY: R05.9 Cough, unspecified evaluate pathology TECHNIQUE: 2D digital imaging was performed of the chest. Four images were obtained. PA and latera l views were obtained. COMPARISON: No exams were available for comparison FINDINGS: MEDIASTINUM: Normal. HEART: Normal. PULMONARY VASCULATURE: Normal. LUNGS: The lungs are hyperinflated. No focal consolidating infiltrates are seen. PLEURAL SPACE: No pleural effusion or pneumothorax. BONE:Within normal limits for the patient's age. OTHER FINDINGS:Normal. IMPRESSION: Hyperinflation of the lungs which can be seen with reactive airways disease. No focal infiltrates ar e present. DATA REPOSITORY: RADIATION DOSE DELIVERED:
== END 2024-06-23 11:46 ==
LOC: DI 11:32
PROVIDERS: PCP Nurse Practitioner Family; Visit Provider Nurse Practitioner Family
DX: R05.9 Cough, unspecified (principal)
CPT/HCPCS: 71046

== ENCOUNTER 2024-12-27 15:04 | Outpatient (CLI) | payer OTHER, SELFPAY ==
--- NOTE | 2024-12-27 14:45 | DI.RAD_ITS ---
Exam(s) XR KNEE RT 3V AP,LAT,MERLIN EXAM: XR KNEE RT 3V AP,LAT,MERLIN CLINICAL HISTORY: RIGHT KNEE PAIN. TECHNIQUE: 2D digital imaging was performed of the right knee. Three views obtained. Merchant, AP an d lateral views were obtained. COMPARISON: No priors for comparison. FINDINGS: BONES: No acute fracture is present. No bony destructive lesion is seen. JOINTS: There are mild degenerative changes seen in the knee characterized by joint space narrowing a nd osteophytes. There are tiny densities in the posterior knee which may represent loose bodies. Th ere is a small joint effusion. SOFT TISSUE: Normal. IMPRESSION: Mild degenerative changes of the right knee. Small joint effusion. DATA REPOSITORY: RADIATION DOSE DELIVERED:
== END 2024-12-27 15:05 | disposition home or self-care (01) ==
LOC: DIORS 15:04
PROVIDERS: PCP Nurse Practitioner Family; Visit Provider Student in an Organized Health Care Education/Training Program
DX: M25.561 Pain in right knee (principal)
CPT/HCPCS: 73562

== ENCOUNTER 2025-01-17 02:40 | Outpatient (CLI) | payer OTHER, SELFPAY ==
--- NOTE | 2025-01-17 07:00 | DI.MRI_ITS ---
Exam(s) MR LOWER JOINT RT WO EXAM: MR LOWER JOINT RT WO CLINICAL HISTORY: PAIN,acute medial meniscal tear,s83.241a. TECHNIQUE: Multiplanar multisequence MRI was performed. COMPARISON: CR XR KNEE RT 3V AP,LAT,MERLIN from 12/27/2024 FINDINGS: BONES: There is no fracture or contusion pattern. JOINTS: There is thinning of the articular cartilage overlying the patella with areas of hyperintense signal seen within cartilage and subchondral bone. There is also small cartilage defect in the late ral femoral condyle. There is a small amount of fluid within the joint space. It appears within nor mal limits. There is a question of a loose body in the lateral aspect of the suprapatellar joint spa ce. TENDONS: Extensor mechanism: Unremarkable. Medial retinaculum: Unremarkable. Lateral retinaculum: Unremarkable. Popliteus: Unremarkable. MUSCLES: Unremarkable. MENISCI: The medial meniscus is unremarkable. The lateral meniscus is unremarkable. SOFT TISSUES: No soft tissue mass or focal fluid collection is seen. LIGAMENTS: Anterior Cruciate: Unremarkable. Posterior Cruciate: Unremarkable. Medial Collateral:Unremarkable. Lateral Collateral: Unremarkable. OTHER: IMPRESSION: 1. There is no evidence of a meniscal or ligament tear. 2. Chondral defect overlying the lateral femoral condyle. Question of a loose body in the lateral as pect of the suprapatellar joint. 3. Chondromalacia overlying the patella. DATA REPOSITORY:
== END 2025-01-17 03:00 ==
LOC: DI 02:40
PROVIDERS: PCP Nurse Practitioner Family; Visit Provider Student in an Organized Health Care Education/Training Program
DX: S83.241A Other tear of medial meniscus, current injury, right knee, initial encounter (principal); X58.XXXA Exposure to other specified factors, initial encounter
CPT/HCPCS: 73721

== ENCOUNTER 2025-01-26 06:15 | Day surgery (SDC) | payer OTHER, SELFPAY ==
[2025-01-26] VITALS (24 sets, daily range): BP systolic 93–116; BP diastolic 52–71; PULSE 46–67; RESP 12–21; TEMP 36.1–36.7; O2SAT 94–99; BMI 24.3
[2025-01-26] MEDS: Lactated Ringers 1,000 ML 30 ML IV (06:59)
--- NOTE | 2025-01-26 07:05 | W.ANESPRE ---
General Info Date of Service Date Performed: 01/26/25 Height: 5 ft 7 in Weight: 70.5 kg Body Mass Index (BMI): 24.3 Surgical Procedure: Operation Date: 01/26/25 07:40 Proposed Procedure Side Surgeon p Knee Arthroscopy w/Loose Body Removal Chondroplasty vs Micro Fx Right Franki Salvador MD Meds Allergies and Home Medications Allergies Allergy/AdvReac Type Severity Reaction Status Date / Time No Known Allergies Allergy Verified 01/26/25 06:45 Home Medication ?Medication ?Instructions ?Recorded rizatriptan 10 mg tablet 10 mg PO ONCE PRN migraine 05/21/23 headache #20 tabs levonorgestrel 21 mcg/24 hr (up to 1 device intrauterine ONCE 04/24/24 8 years) 52 mg intrauterine device (Mirena) estradiol 1 mg tablet 1 mg PO DAILY #90 tabs 05/19/24 hydroxyzine HCl 25 mg tablet 25 mg PO TID PRN itching #30 tabs 09/14/24 triamcinolone acetonide 0.1 % 1 applic topical BID #80 grams 09/14/24 topical cream zolpidem 5 mg tablet 5 - 10 mg (1 - 2 x 5 mg) PO QHS 11/16/24 PRN insomnia #30 tabs aspirin 81 mg capsule 81 mg PO DAILY prevent blood clot 01/26/25 14 days #14 caps naproxen 250 mg tablet 250 - 500 mg (1 - 2 x 250 mg) PO 01/26/25 BID PRN moderate pain and swelling #40 tabs oxycodone 5 mg tablet 5 - 10 mg (1 - 2 x 5 mg) PO .q4-6h 01/26/25 PRN severe pain #12 tabs Current Visit Medications: Current Medications Generic Name Dose Route Start Last Admin Trade Name Freq PRN Reason Stop Dose Admin Ringer's Solution 1,000 mls @ 30 mls/hr 01/26/25 06:00 01/26/25 06:59 IV 01/26/25 23:59 30 mls/hr INFUSION TIGRE Administration Cefazolin Sodium/Dextrose 2 gm in 50 mls @ 100 mls/hr 01/26/25 06:00 Ancef Duplex IVPB 01/26/25 23:59 PREOP TIGRE Tranexamic Acid/Sodium Chloride 1,000 mg in 100 mls @ 600 mls/hr 01/26/25 06:00 IVPB 01/26/25 23:59 PREOP TIGRE IV Miscellaneous Supplies 1 each 01/26/25 06:00 Iv Access IV 01/26/25 23:59 DIRECTED TIGRE Sodium Chloride 0 ml 01/26/25 06:00 Normal Saline Flush 10 Ml Syr IV 01/26/25 23:59 PRN PRN Sodium Chloride 0 ml 01/26/25 06:00 Normal Saline 10 Ml Vial IJ 01/26/25 23:59 DIRECTED PRN Sterile Water 0 ml 01/26/25 06:00 Water,Injection,Sterile 10 Ml Vial IJ 01/26/25 23:59 DIRECTED PRN PFSH Active Problems Active Problems: Problem Status Onset Code Chondromalacia of patella, right Acute M22.41 Tear of cartilage of right knee Acute S83.206A Loose body of right knee Acute M23.41 Abnormal uterine bleeding Chronic N93.9 IUD surveillance Chronic Z30.431 Left ovarian cyst Chronic N83.202 Uterine fibroid Chronic D25.9 Sensorineural hearing loss, unilateral, right ear, with unrestricted hearing on the contralateral side Chronic H90.41 Seasonal allergies Chronic J30.2 Migraine headache with aura Chronic G43.109 Prolapse of female pelvic organs Chronic N81.9 Atopic dermatitis Chronic L20.9 Insomnia Chronic G47.00 Medical History Medical History Generalized anxiety disorder Abnormal Papanicolaou smear of cervix with positive human papilloma virus (HPV) test 03/2018--LSIL, +HPV 04/2018 negative colposcopy and ECC at [facility] 03/2019--LSIL, +HPV 04/2019--ECC with LSIL 03/2020--negative Pap and HPV 04/2021--negative Pap and HPV Major depressive disorder Surgical History Surgical History History of hip surgery Labrum repair S/P colonoscopy (09/14/23) Status post arthroscopy of hip (04/24/15) Right hip for labral tear at [facility] [place] Tobacco Smoking/Tobacco Use Status: Never Passive smoking exposure: No Second hand exposure: No Alcohol Alcohol Intake: current Alcohol intake frequency: a few times a week Alcohol type: wine Substance Use Substance use: Never Substance use type: does not use Counseling provided: none Prental History History 2 Para 2 Hx # Term Pregnancies Multiple births Hx # Pregnancies Ectopic pregnancies AB induced Hx Number of Living Children 2 AB spontaneous Vital Signs and Lab Results Vital Signs Most Recent Vital Signs in EMR: Most Recent Vital Signs Temp Pulse Resp BP Pulse Ox 36.6 C 65 16 104/57 L 98 01/26/25 06:37 01/26/25 06:37 01/26/25 06:37 01/26/25 06:37 01/26/25 06:37 Point of Care Results Point of Care Results: POC- Test(urine) Negative 01/26/25 07:00 Lab Results Blood Type / Crossmatch: No Data to Display Complete Blood Count: No Data to Display Complete Metabolic Panel: No Data to Display Liver Function Panel: No Data to Display Coagulation Panel: No Data to Display Cardiac Panel: No Data to Display Arterial Blood Gas: No Data to Display Venous Blood Gas: No Data to Display Pancreas Panel: No Data to Display Thyroid Panel: No Data to Display Infectious Disease: No Data to Display Blood Cultures: No Data to Display Toxicology Panel: No Data to Display Panel: No Data to Display Anesthesia Assessment and Plan Anesthesia History Personal History: No History of Anesthesia Complications Family History: No Family History of Anesthesia Complications Exercise Tolerance Exercise Tolerance: Metabolic Equivalents>4 Pertinent Negatives Pertinent Negatives: No Major Cardiovascular Symptoms or Complaints and No Major Pulmonary Symptoms or Complaints Cardiac & Pulmonary Exam Cardiac Exam: Normal S1/S2 Heart Sounds Pulmonary Exam: Clear Bilateral Breath Sounds Implantable Cardiac Device Does patient have a Pacemaker or an ICD?: No Airway Exam Known Difficult Airway: No Mallampati Class: 1 Mouth Opening: Normal (> 3cm) Thyromental Distance: Greater than 3 cm Neck Range of Motion: Full ROM Neck Circumference: Normal Teeth Condition: Normal Dentition ASA Classification ASA Score: ASA 2 Emergency Case?: No NPO Status NPO Status: NPO Clears >2 hours, Solids >8 hours Status Status: Negative HCG Anesthesia Plan Resuscitation Status: Full Code Anesthesia Technique: General Anesthesia Airway Planned: LMA Monitors Used: Standard Monitors
--- NOTE | 2025-01-26 07:06 | W.PM.DSUDISC ---
Date of service: 01/26/25 Discharge Plan Disposition Patient Disposition: Home Condition: Stable Discharge Details Attending Provider: Franki Salvador Primary Care Provider: Catarina Min Home Meds and New Rx's Prescriptions: New naproxen 250 mg tablet 250 - 500 mg PO BID PRN (Reason: moderate pain and swelling) Qty: 40 0RF oxycodone 5 mg tablet 5 - 10 mg PO .q4-6h MDD 30 mg PRN (Reason: severe pain) Qty: 12 0RF aspirin 81 mg capsule 81 mg PO DAILY 14 Days Qty: 14 0RF Continued rizatriptan 10 mg tablet 10 mg PO ONCE MDD 20mg PRN (Reason: migraine headache) Qty: 20 1RF Rx Instructions: 1 tab once at onset of headache; if no relief, may repeat x 1 in 2hrs Mirena 21 mcg/24 hr (8 yrs) 52 mg intrauterine device 1 device intrauterine ONCE Patient Comments: 01/2023 Mirena inserted Rx Instructions: as a single dose triamcinolone acetonide 0.1 % cream 1 applic topical BID Qty: 80 0RF hydroxyzine HCl 25 mg tablet 25 mg PO TID PRN (Reason: itching) Qty: 30 0RF estradiol 1 mg tablet 1 mg PO DAILY Qty: 90 3RF zolpidem 5 mg tablet 5 - 10 mg PO QHS PRN (Reason: insomnia) Qty: 30 0RF Discharge Instructions Additional Instructions: Surgery: Right knee arthroscopy with loose body removal, partial lateral meniscectomy, chondroplasty patella, and microfracture lateral femoral condyle 01/26/25; High-grade focal LFC cartilage loss and moderate diffuse patellar chondromalacia. Activity: Weightbearing as tolerated. Advance range of motion as comfort allows. No knee brace or crutches needed as soon as comfortable. Recommend avoiding sports, pivoting, and squatting for 6-8 weeks. A physical therapy prescription will be sent electronically to start in about 3 weeks. Prescriptions: Aspirin 81 mg take 1 daily to prevent a blood clot for 14 days, starting tomorrow Naproxen 250 mg take 1-2 every 12 hours with a meal as needed for moderate pain Oxycodone 5 mg take 1-2 every 4-6 hours as needed for severe pain You may use [id number]-ugccwji Tylenol (acetaminophen) as needed for mild pain. These pain medications may be taken all at once or in different combinations as needed. Also, recommend Colace (docusate) as a stool softener as surgery and pain medicine cause constipation. You may try lmpg-fhm-chgowgu diphenhydramine (Benadryl) 25-50 mg nightly as a sleep aid Dressings: Leave dressing in place for 3 days. May then remove and leave open to air or cover incisions with Band-Aids. Leave the sticky Steri-Strips in place until they fall off or remove them after you shower. May shower after 5 days. Follow-up: 10-[address] Salvador You may take off the leg compression stockings this evening at home. You may also leave them on a few days longer if you have a history of leg swelling or edema. Let us know right away if you develop any redness, drainage, fevers, chest pain, or trouble breathing. Do not drink alcohol or drive for at least 24 hours after anesthesia. Please call the office during business hours with any questions or concerns. Stand Alone Forms: Anesthesia Discharge Inst., Crutch Training Instructions, Terra Alex (DSU) Referrals: Frnaki Salvador MD [ [facility] STAFF PHYSICIAN] - 02/06/25 1:00 pm Discharge Orders Discharge Orders: Discharge Order (Routine); Ordered 01/26/25 Ordered By: Saige Blackwell DS: Diagnosis Discharge Diagnosis (1) Tear of cartilage of right knee: Status: Acute (2) Loose body of right knee: Status: Acute (3) Acute lateral meniscus tear of right knee: Status: Acute (4) Chondromalacia of patella, right: Status: Acute
--- NOTE | 2025-01-26 07:14 | W.PM.OP ---
Operative Note Operative Note PRE-OP DIAGNOSIS: Right knee 1. Cartilage tear 2. Loose body 3. Chondromalacia patella POST-OP DIAGNOSIS: same Right knee 1. Cartilage tear 2. Loose body 3. Chondromalacia patella 4. Lateral meniscus tear PROCEDURE: Right knee 1. Arthroscopic loose body removal, CPT #67967: About 5 x 5 mm cartilage piece through a separate posterior lateral knee portal. 2. Partial lateral meniscectomy, CPT #65860: Anterior horn superficial layers 3. Chondroplasty, CPT #25655: Undersurface patella 4. Microfracture, CPT #63699: Lateral femoral condyle SURGEON: Franki Salvador CLOTH BLEACHING SUPERVISOR: None None ANESTHESIA TYPE: Local By Surgeon and General LMA/ETT Refer to Anesthesia Record ESTIMATED BLOOD LOSS: 5 PATHOLOGY: none sent TOURNIQUET TIME: 0 Patient was transported to: PACU Patient's condition: stable Indications: Please see complete medical record for details. Findings: Exam under anesthesia: Full range of motion, no instability Arthroscopic findings: Obvious about 5 x 5 mm full-thickness cartilage fragment in the lateral gutter corresponding to the MRI loose body. Moderate diffuse undersurface patellar chondromalacia and mild engaging patellofemoral synovitis. Intact medial compartment cartilage and medial meniscus. Intact ACL and PCL. Full-thickness lateral femoral condyle weightbearing cartilage lesion with some instability on the carvajal measuring about 5 x 15 mm after removing unstable and smoothing sharp edges. Superficial anterior horn lateral meniscus fraying partial tearing, which appeared abraded and caused by the lateral femoral condyle cartilage lesion. Procedure Description: In the operating room, general anesthesia was induced. The patient was positioned supine on the operating room table. All bony prominences were well-padded. Preoperative antibiotics were administered. The knee was prepped and draped in the usual sterile fashion. The correct patient, procedure, and side of the procedure were all verified prior to incision. Exam under anesthesia was performed. 20 cc of 0.25% bupivacaine containing epinephrine was infiltrated about the planned anteromedial and anterolateral knee arthroscopy portals. The portals were established and a complete diagnostic arthroscopy was performed with relevant findings detailed above. The loose body was localized in the lateral gutter, but it quickly floated with gravity into the posterior lateral compartment. Remainder of the knee was inspected and treated before approaching the posterior lateral compartment in case the loose body became more accessible anteriorly. The mechanical shaver was used to remove a small amount of inflamed synovium engaging patellofemoral compartment. The torpedo shaver was then used to smooth some irregularities and fraying beneath the patella as part of a light chondroplasty. The torpedo shaver was then used on the anterior horn superficial layers of lateral meniscus to remove fraying and trim poor quality abraded tissue to a more stable margin and an area that corresponded to impingement from the lateral femoral condyle cartilage lesion. The lateral femoral condyle cartilage lesion was thoroughly probed and had some unstable edges and impending flaps more laterally and posteriorly. These were trimmed back with the torpedo shaver and some sharp edges were trimmed as well. The lesion bed had poor quality soft tissue, no real cartilage healing, but also no exposed fresh or pink bone. It measured about 75 mm? after debridement. The arthroscope was then directed from the anteromedial portal into the posterior lateral compartment. The loose cartilage fragment could not be withdrawn into the anterior knee from the posterior compartment indirectly using the shaver or camera individually. A posterior lateral portal was then created with the knee flexed 90 degrees, localized with a needle, switching stick, and then dilator and half pipe used to introduce a pituitary rongeur and grasp the piece of cartilage in entirety and remove it under visualization. That corresponded to the initially seen loose body in the loose body on MRI. Was placed into a specimen cup for the patient. Lastly, the lateral femoral condyle cartilage lesion microfracture was considered. The remainder of the lateral compartment cartilage was fairly healthy and the small amount of and horn meniscus tearing was not overly significant so the decision was made to proceed with microfracture in order to attempt to stimulate some improvement and filling in of the lesion in this otherwise healthy and active patient. It otherwise seem high risk to continue causing mechanical symptoms engaging the anterior horn of the lateral meniscus. The power pick was brought in and directed perpendicular to the lesion and different amounts of knee flexion and used to drill multiple puncture sites and with suction off confirm expression of bone marrow elements into the lesion bed. The knee was copiously irrigated with arthroscopic fluid until there was a clear effluent before being drained of all fluid. The anteromedial, anterolateral, and posterior lateral portals were closed in 3-0 Monocryl in a buried interrupted fashion. Additional 10 cc of 0.25% bupivacaine with epinephrine was infiltrated about the posterior lateral portal. Mastisol, Steri-Strips, and 4 x 4 gauze were applied over the incisions. The knee was then wrapped gently with an KESHIA comressive bandage. The patient awoke from anesthesia without complication and was transferred to the recovery room in a stable condition. Date of Procedure: 01/26/25
[2025-01-26] MEDS: ceFAZolin 2 GM/50 ML BAG IVPB (07:32)
[2025-01-26] MEDS: TRANEXAMIC ACID/SOD. CHL. 1,000 MG/100 ML BAG 600 MG IVPB (07:44)
[2025-01-26] MEDS: fentaNYL 100 MCG/2 ML VIAL IVP ×3 (09:33→09:54)
--- NOTE | 2025-01-26 10:20 | W.ANESPOSTOP ---
Postoperative Evaluation Date, Time and Location Date Performed: 01/26/25 Time Performed: 09:56 Patient Location: PACU Vital Signs Most Recent Imported Vital Signs: Most Recent Vital Signs Temp Pulse Resp BP Pulse Ox 36.6 C 57 L 16 103/62 99 01/26/25 10:06 01/26/25 10:06 01/26/25 10:06 01/26/25 10:06 01/26/25 10:06 Pain Score Most Recent Pain Score: Most Recent Pain Score Pain Level 6 01/26/25 09:56 Assessment Mental Status: Awake (Alert & Oriented to Patient Baseline) Airway and Respiratory Function: Patent airway with normal (patient baseline) respiratory exam Cardiovascular Function: Hemodynamically Stable Hydration Status: Adequately Hydrated Nausea & Vomiting: No Nausea or Vomiting Pain: Pain is tolerable per patient Peripheral Nerve Block: Patient did not receive a nerve block
== END 2025-01-26 11:45 | disposition home or self-care (01) ==
PROVIDERS: PCP Nurse Practitioner Family; Visit Provider Student in an Organized Health Care Education/Training Program
PROC: (CPT 29870; principal; 2025-01-26 07:30)
DX: M23.41 Loose body in knee, right knee; S83.281A Other tear of lateral meniscus, current injury, right knee, initial encounter; M22.41 Chondromalacia patellae, right knee
CPT/HCPCS: 29879; 29881; 81025; J0131; J0690; J1100; J1885; J2003; J2405; J2704; J3010

== ENCOUNTER 2025-04-13 15:29 | Outpatient (REF) | payer OTHER, SELFPAY ==
--- NOTE | 2025-04-13 15:10 | SKI_PTH ---
PATIENT: Julieta Sen LOC: [facility] U#:[id number] AGE/SX: 44/F ROOM: RE04/13/[address]: RAMOS Harry : 1980 BED: DIS: 04/13/2025 SPEC #: [id number] RECD: 04/16/25 12:24 STATUS: VERA REJohn #: [id number] ROMAN: 04/13/25 15:[address]: Chante Hughes DEPT: Surgical Specimen RECD BY: Bridgette Gardner ENTERED: 04/16/25 12:25 SP TYPE: MAU GANN DR: SHANIQUA Huston Tissues: 1 - SKIN BIOPSY(SHAVE/PUNCH) Procedures: SKIN LEVEL 4 Comments: [id number]
== END 2025-04-13 15:30 | disposition home or self-care (01) ==
LOC: LBN 15:29
PROVIDERS: PCP Nurse Practitioner Family; Visit Provider Physical Therapy Assistant
DX: C44.519 Basal cell carcinoma of skin of other part of trunk (principal)
CPT/HCPCS: 88305

== ENCOUNTER → 2025-07-31 00:49 | Outpatient (CLI) | payer OTHER, SELFPAY ==
--- NOTE | 2025-07-31 07:45 | DI.MAMMO_ITS ---
Exam(s) MAMMO SCREENING EXAM: MAMMO SCREENING CLINICAL HISTORY: screening,z12.39. TECHNIQUE: Bilateral full field digital CC and MLO mammographic images were obtained with 3D tomosynthesis and utilizing computer aided detection (CAD). COMPARISON: Prior mammograms were reviewed. FINDINGS: There has been no significant change in the appearance and distribution of the fibroglandular tissue which is again noted be heterogeneously dense.. No new right breast findings. In the posterior aspect of the left breast on the 3D MLO view there is an asymmetric density measuring 8 by 5 mm located 6 cm in from the nipple on the MLO view. Requires further imaging. There are no malignant-appearing microcalcification groups in this region or elsewhere in either breast. There is no significant architectural distortion nor skin thickening-retraction. IMPRESSION: 1. No radiographic evidence of malignancy in the right breast. 2. Asymmetric density-possible 8 x 5 mm nodule in the left breast as described above. Spot compression MLO view and complete left breast ultrasound recommended. BI-RADS Category 0 - Incomplete: Need additional imaging evaluation Breast Density - Category C - The breast are heterogeneously dense, which may obscure small masses. Breast density Category C or D implies that the patient has dense breast tissue. Dense breast tissue can make it harder to find cancer on a mammogram. Dense breast tissue is also associated with an increased risk of breast cancer. This information about the result of the mammogram report was provided to the patient to raise their awareness. Use this report when you speak with the patient about their risks for breast cancer, which includes their family history. At that time, you may recommend additional screening tests (Ultrasound or MRI) as these tests may add significant information. A negative radiographic report should not delay biopsy if a dominant or clinically suspicious mass is present. Up to ten percent of cancers are not identified on mammography. A negative report may reinforce clinical impression. Adenosis and dense breasts may obscure an underlying neoplasm. False positive reports average 6 to 10%. Patient will receive a letter notifying them of these results.
== END ==
LOC: DI 00:49
PROVIDERS: PCP Nurse Practitioner Family; Visit Provider Nurse Practitioner Family
DX: Z12.31 Encounter for screening mammogram for malignant neoplasm of breast (principal); N93.9 Abnormal uterine and vaginal bleeding, unspecified; R92.323 Mammographic fibroglandular density, bilateral breasts
CPT/HCPCS: 77063; 77067

== ENCOUNTER → 2025-08-09 02:24 | Outpatient (CLI) | payer OTHER, SELFPAY ==
--- NOTE | 2025-08-09 | DI.MAMMO_ITS ---
Exam(s) MAMMO SCREEN CALL BACK UNI US BREAST LT COMPLETE EXAM: MAMMO SCREEN CALL BACK UNI-LEFT AND COMPLETE LEFT BREAST ULTRASOUND CLINICAL HISTORY: ASYMMETRIC DENSITY-POSSIBLE NODULE 8X5 NODULE LEFT BREAST R92.8. TECHNIQUE: Unilateral LEFT BREAST spot mammographic images obtained with 3D tomosynthesisand utilizing computer aided detection (CAD). . Complete LEFT breast Ultrasound was also performed, including all 4 quadrants, the retroareolar region, and the ipsilateral axilla. COMPARISON: Prior mammograms were reviewed. This additional imaging was performed due to findings described on the recent screening mammogram of 07/31/2025. FINDINGS: DIAGNOSTIC MAMMOGRAM: Additional mammographic spot compression view performed todayrender this area less concerning and similar in appearance to prior mammograms.. COMPLETE LEFT BREAST ULTRASOUND: Ultrasound performed today reveals no evidence of solid or significant cystic lesions in all 4 quadrants.. Scanning of the ipsilateral axilla reveals no significant adenopathy. IMPRESSION: 1. No radiographic evidence of malignancy in the left breast. 2. Negative complete left breast ultrasound Appropriate follow-up as discussed by myself with the patient today is repeat left breast MAMMOGRAM in 6 months. The patient was informed of these findings and recommendations by myself prior to leaving the department today. BI-RADS Category 3 - 6 month - Probably Benign Finding: Recommend follow-up mammography in 6 months Breast Density - Category C - The breast are heterogeneously dense, which may obscure small masses. Breast density Category C or D implies that the patient has dense breast tissue. Dense breast tissue can make it harder to find cancer on a mammogram. Dense breast tissue is also associated with an increased risk of breast cancer. This information about the result of the mammogram report was provided to the patient to raise their awareness. Use this report when you speak with the patient about their risks for breast cancer, which includes their family history. At that time, you may recommend additional screening tests (Ultrasound or MRI) as these tests may add significant information. A negative radiographic report should not delay biopsy if a dominant or clinically suspicious mass is present. Up to ten percent of cancers are not identified on mammography. A negative report may reinforce clinical impression. Adenosis and dense breasts may obscure an underlying neoplasm. False positive reports average 6 to 10%. Patient will receive a letter notifying them of these results.
== END ==
LOC: DI 02:24
PROVIDERS: PCP Nurse Practitioner Family; Visit Provider Nurse Practitioner Family
DX: Z12.31 Encounter for screening mammogram for malignant neoplasm of breast (principal); R92.8 Other abnormal and inconclusive findings on diagnostic imaging of breast
CPT/HCPCS: 76642; 77063; 77067